=== PATIENT | male | born 1965 | race Caucasian/White ===

== ENCOUNTER → 2016-03-13 | Outpatient (CLI) | payer BC ==
[~2016-03-13] MED LIST: ACET-1311 PO; ASPI81TA85 PO; B-COCAP21 PO; CLOP1TAB54 PO; GABA300C19 PO; GLYB1.257 PO; METF500T PO; PANT40TA PO; SERT50TA PO; TAMS0.4C59 PO
[2016-03-13 13:50] LABS: BLOOD UREA NITROGEN 7 mg/dl (7-18); BUN/CREATININE RATIO 11.5 (10-20); CALCIUM 9.1 mg/dl (8.5-10.1); CARBON DIOXIDE 30 mmol/L (21-32); CHLORIDE 102 mmol/L (98-107); GLUCOSE 169 mg/dl (70-99); POTASSIUM 3.9 mmol/L (3.5-5.1); SODIUM 141 mmol/L (136-145)
[2016-03-13 13:56] LABS: CHOLESTEROL 196 mg/dl (0-200); CHOLESTEROL/HDL RATIO 3.9; HDL CHOLESTEROL 50 mg/dl; TRIGLYCERIDES 203 mg/dl (0-150); VERY LOW DENSITY LIPOPROT CALC 41 mg/dl
[2016-03-13 13:57] LABS: ESTIMATED AVERAGE GLUCOSE 148 mg/dl; HA1C FLAG Normal (Normal)
== END | disposition home or self-care (01) ==
LOC: C.LABSPEC 12:14
PROVIDERS: ATTEND Internal Medicine
DX: E11.9 Type 2 diabetes mellitus without complications (principal); E78.5 Hyperlipidemia, unspecified; Z51.81 Encounter for therapeutic drug level monitoring; Z79.899 Other long term (current) drug therapy

== ENCOUNTER → 2016-07-11 | Outpatient (CLI) | payer BC ==
[~2016-07-11] MED LIST changes: +GABA-1218 PO; -GABA300C19 PO
[2016-07-11 12:47] LABS: BASO % 0.2 %; BASO ABS # 0.01 K/uL (0-0.2); COMPLETE YES; HEMATOCRIT 46.6 % (42-52); IG% 0.3 %; LYMPH % 23.4 %; LYMPH ABS # 1.47 K/uL (1.2-3.4); MEAN CELL VOLUME 90.1 fL (80-100); MEAN CORPUSCULAR HEMOGLOBIN 30.2 pg (25-34); MEAN CORPUSCULAR HGB CONC 33.5 g/dl (32-36); MEAN PLATELET VOLUME 11.3 fL (7.4-10.4); NEUT % 65.1 %; PLATELET COUNT 201 K/uL (130-400); RED BLOOD COUNT 5.17 M/uL (4.7-6.1); WHITE BLOOD COUNT 6.29 K/uL (4.8-10.8)
[2016-07-11 13:43] LABS: ESTIMATED AVERAGE GLUCOSE 151 mg/dl; HA1C FLAG Normal (Normal)
[2016-07-11 15:38] LABS: ALT/SGPT 41 U/L (12-78); AST/SGOT 18 U/L (15-37); BLOOD UREA NITROGEN 10 mg/dl (7-18); BUN/CREATININE RATIO 17.7 (10-20); CALCIUM 8.7 mg/dl (8.5-10.1); CARBON DIOXIDE 27 mmol/L (21-32); CHLORIDE 103 mmol/L (98-107); CREATININE 0.56 mg/dl (0.60-1.40); GLUCOSE 151 mg/dl (70-99); POTASSIUM 3.9 mmol/L (3.5-5.1); SODIUM 139 mmol/L (136-145); TRIGLYCERIDES 209 mg/dl (0-150); VERY LOW DENSITY LIPOPROT CALC 42 mg/dl
[2016-07-11 15:39] LABS: ALB/GLOB RATIO 1.1 (0.9-2); ALKALINE PHOSPHATASE 176 U/L (45-117); CHOLESTEROL 190 mg/dl (0-200); CHOLESTEROL/HDL RATIO 4.1; HDL CHOLESTEROL 46 mg/dl
== END | disposition home or self-care (01) ==
LOC: C.LABSPEC 12:19
PROVIDERS: ATTEND Internal Medicine
DX: E11.65 Type 2 diabetes mellitus with hyperglycemia (principal); E78.5 Hyperlipidemia, unspecified; G40.909 Epilepsy, unspecified, not intractable, without status epilepticus

== ENCOUNTER → 2016-08-15 | Outpatient (CLI) | payer BC ==
--- NOTE | 2016-08-15 15:28 | DIAGNOSTIC IMAGING REPORT ---
CHEST 2 VIEWS ROUTINE CLINICAL HISTORY: COUGH, PAIN IN UPPER BACK dyspnea COMPARISON STUDY: 06/29/2012 FINDINGS: The bones soft tissues and hemidiaphragms are normal. The cardiomediastinal silhouette is normal. The lungs are clear. The pulmonary vasculature is normal. IMPRESSION: Negative chest. Electronically signed by: Chris Gross M.D. 08/15/2016 3:26 PM Dictated Date/Time: 08/15/2016 3:26 PM
--- NOTE | 2016-08-15 15:31 | DIAGNOSTIC IMAGING REPORT ---
THORACIC SPINE 3 VIEWS HISTORY: Dyspnea COUGH, PAIN IN UPPER BACK COMPARISON: None. FINDINGS: There is no fracture. No subluxation. Moderate degenerative disc change throughout IMPRESSION: Moderate degenerative disc change. No acute bony abnormality. Electronically signed by: Chris Gross M.D. 08/15/2016 3:30 PM Dictated Date/Time: 08/15/2016 3:29 PM
== END | disposition home or self-care (01) ==
LOC: C.RAD 14:48
PROVIDERS: ATTEND Internal Medicine
DX: R05 Cough (principal); M54.6 Pain in thoracic spine

== ENCOUNTER → 2016-11-10 | Outpatient (CLI) | payer BC ==
[~2016-11-10] MED LIST changes: -GABA-1218 PO; +GABA300C19 PO
== END | disposition home or self-care (01) ==
LOC: C.LABSPEC 12:25
PROVIDERS: ATTEND Internal Medicine
DX: Z12.11 Encounter for screening for malignant neoplasm of colon (principal)

== ENCOUNTER → 2016-11-21 | Outpatient (CLI) | payer BC ==
[2016-11-21 13:29] LABS: BLOOD UREA NITROGEN 8 mg/dl (7-18); CREATININE 0.48 mg/dl (0.60-1.40); GLUCOSE 143 mg/dl (70-99)
[2016-11-21 13:30] LABS: BUN/CREATININE RATIO 16.3 (10-20); CALCIUM 9.1 mg/dl (8.5-10.1); CARBON DIOXIDE 28 mmol/L (21-32); CHLORIDE 102 mmol/L (98-107); CHOLESTEROL 201 mg/dl (0-200); SODIUM 138 mmol/L (136-145); TRIGLYCERIDES 172 mg/dl (0-150); VERY LOW DENSITY LIPOPROT CALC 34 mg/dl
[2016-11-21 13:32] LABS: CHOLESTEROL/HDL RATIO 5.3; HDL CHOLESTEROL 38 mg/dl
[2016-11-21 13:38] LABS: ESTIMATED AVERAGE GLUCOSE 137 mg/dl; HA1C FLAG Normal (Normal)
== END | disposition home or self-care (01) ==
LOC: C.LABSPEC 12:13
PROVIDERS: ATTEND Internal Medicine
DX: E11.9 Type 2 diabetes mellitus without complications (principal); E78.5 Hyperlipidemia, unspecified

== ENCOUNTER → 2016-12-12 | Outpatient (CLI) | payer BC ==
[2016-12-12 17:53] LABS: RATIO 7.4 mcg/mg (0-30.0)
== END | disposition home or self-care (01) ==
LOC: C.LABSPEC 15:33
PROVIDERS: ATTEND Internal Medicine
DX: E11.9 Type 2 diabetes mellitus without complications (principal)

== ENCOUNTER → 2017-03-14 | Outpatient (CLI) | payer BC ==
[~2017-03-14] MED LIST changes: +GABA-1218 PO; -GABA300C19 PO
[2017-03-14 12:58] LABS: BASO % 0.2 %; BASO ABS # 0.01 K/uL (0-0.2); EOS % 0.3 %; EOS ABS # 0.02 K/uL (0-0.5); HEMATOCRIT 43.6 % (42-52); HEMOGLOBIN 14.4 g/dL (14.0-18.0); IG# 0.02 K/uL (0.00-0.02); LYMPH % 17.9 %; LYMPH ABS # 1.06 K/uL (1.2-3.4); MEAN CELL VOLUME 88.3 fL (80-100); MEAN CORPUSCULAR HEMOGLOBIN 29.1 pg (25-34); MEAN PLATELET VOLUME 10.3 fL (7.4-10.4); MONO % 12.9 %; MONO ABS # 0.76 K/uL (0.11-0.59); NEUT % 68.4 %; NEUT ABS # 4.04 K/uL (1.4-6.5); PLATELET COUNT 206 K/uL (130-400); RED CELL DISTRIBUTION WIDTH CV 14.2 % (11.5-14.5); RED CELL DISTRIBUTION WIDTH SD 45.7 fL (36.4-46.3); WHITE BLOOD COUNT 5.91 K/uL (4.8-10.8)
[2017-03-14 13:27] LABS: HEMOGLOBIN A1C 6.4 % (4.5-5.6)
[2017-03-14 13:30] LABS: ALBUMIN 3.4 gm/dl (3.4-5.0); ALT/SGPT 42 U/L (12-78); AST/SGOT 19 U/L (15-37); BLOOD UREA NITROGEN 7 mg/dl (7-18); CALCIUM 9.1 mg/dl (8.5-10.1); CARBON DIOXIDE 30 mmol/L (21-32); CHOLESTEROL 202 mg/dl (0-200); CREATININE 0.51 mg/dl (0.60-1.40); GLUCOSE 136 mg/dl (70-99); SODIUM 136 mmol/L (136-145)
[2017-03-14 13:33] LABS: ALKALINE PHOSPHATASE 226 U/L (45-117); LDL CHOLESTEROL (DIRECT) 146 mg/dl; TOTAL PROTEIN 7.3 gm/dl (6.4-8.2)
== END | disposition home or self-care (01) ==
LOC: C.LABSPEC 12:17
PROVIDERS: ATTEND Internal Medicine
DX: E11.9 Type 2 diabetes mellitus without complications (principal); I70.91 Generalized atherosclerosis; G40.909 Epilepsy, unspecified, not intractable, without status epilepticus

== ENCOUNTER → 2017-04-25 | Outpatient (CLI) | payer BC ==
[~2017-04-25] MED LIST changes: +TRAM-10 PO
[2017-04-25 18:39] LABS: BASO % 0.2 %; BASO ABS # 0.01 K/uL (0-0.2); EOS % 0.2 %; EOS ABS # 0.01 K/uL (0-0.5); HEMATOCRIT 40.2 % (42-52); HEMOGLOBIN 13.2 g/dL (14.0-18.0); IG# 0.02 K/uL (0.00-0.02); LYMPH % 14.6 %; LYMPH ABS # 0.86 K/uL (1.2-3.4); MEAN CELL VOLUME 85.4 fL (80-100); MEAN CORPUSCULAR HGB CONC 32.8 g/dl (32-36); MEAN PLATELET VOLUME 9.8 fL (7.4-10.4); MONO % 14.2 %; MONO ABS # 0.84 K/uL (0.11-0.59); NEUT % 70.5 %; NEUT ABS # 4.17 K/uL (1.4-6.5); PLATELET COUNT 287 K/uL (130-400); RED CELL DISTRIBUTION WIDTH CV 14.1 % (11.5-14.5); RED CELL DISTRIBUTION WIDTH SD 44.7 fL (36.4-46.3); WHITE BLOOD COUNT 5.91 K/uL (4.8-10.8)
[2017-04-25 18:48] LABS: ALT/SGPT 129 U/L (12-78); AST/SGOT 93 U/L (15-37); BLOOD UREA NITROGEN 9 mg/dl (7-18); CARBON DIOXIDE 29 mmol/L (21-32); CREATININE 0.62 mg/dl (0.60-1.40); GLUCOSE 74 mg/dl (70-99); LIPASE 132 U/L (73-393); POTASSIUM 3.9 mmol/L (3.5-5.1); SODIUM 132 mmol/L (136-145)
[2017-04-25 19:00] LABS: ALKALINE PHOSPHATASE 186 U/L (45-117); TOTAL PROTEIN 7.6 gm/dl (6.4-8.2)
[2017-04-26 07:12] LABS: HEMOGLOBIN A1C 6.6 % (4.5-5.6)
== END | disposition home or self-care (01) ==
LOC: C.LABSPEC 18:13
PROVIDERS: ATTEND Internal Medicine
DX: E11.9 Type 2 diabetes mellitus without complications (principal); R10.9 Unspecified abdominal pain; R63.4 Abnormal weight loss

== ENCOUNTER → 2017-04-26 | Outpatient (CLI) | payer BC ==
[~2017-04-26] MED LIST changes: +OPTIRAY 320 IV PRN
--- NOTE | 2017-04-26 14:36 | DIAGNOSTIC IMAGING REPORT ---
ABD/PELVIS IV AND ORAL CONT CT DOSE: 915.13 mGycm HISTORY: Pain. ABDOMINAL PAIN, WEIGHT LOSS TECHNIQUE: Multiaxial CT images of the abdomen and pelvis were performed following the use of intravenous and oral contrast. A dose lowering technique was utilized adhering to the principles of ALARA. COMPARISON STUDY: 01/31/2011 FINDINGS: Lung bases are considered clear. Liver is uniform throughout. Spleen is uniform with no evidence for enlargement. There are findings of marked adenopathy within the retroperitoneal and periaortic region. The largest node measures 6.2 cm and displaces the pancreatic head and uncinate process and anterior fashion. Bulky smaller nodes are identified throughout the para-aortic and retroperitoneal region extending to the level of the aortic bifurcation. The kidneys enhance uniformly. No evidence for hydronephrosis. Bowel pattern is considered nonobstructive. The appendix is normal. Subtle infiltration of the root of the mesentery is also present. Graft evaluation of the pelvis shows the bladder to be midline. Colonic bowel pattern is considered nonobstructive. Inguinal regions are unremarkable. IMPRESSION: 1. Massive adenopathy of the upper abdominal, para, and retroperitoneal regions. 2. This is considerable change compared to the prior study of 01/31/2011. 3. Lymphoma is considered the diagnosis of exclusion. The above report was generated using voice recognition software. It may contain grammatical, syntax or spelling errors. Electronically signed by: Chris Gross M.D. 04/26/2017 2:35 PM Dictated Date/Time: 04/26/2017 2:21 PM
== END | disposition home or self-care (01) ==
LOC: C.CTS 13:47
PROVIDERS: ATTEND Internal Medicine
DX: R10.9 Unspecified abdominal pain (principal); R63.4 Abnormal weight loss

== ENCOUNTER → 2017-04-26 | Outpatient (CLI) | payer BC ==
[~2017-04-26] MED LIST changes: -OPTIRAY 320 IV PRN
[2017-04-26 18:46] LABS: PTT PATIENT 29.6 SECONDS (21.0-31.0)
--- NOTE | 2017-05-04 12:13 | CODING QUERY NO DIAGNOSIS ---
TREATMENT RENDERED WITHOUT A DIAGNOSIS To promote full compliance with coding requirements relating to patient care, physician participation is requested in all cases of rn new grad uncertainty. Please assist us with providing a diagnosis/symptom for the test(s) below: A diagnosis/symptom was not documented on your Order. A valid diagnosis/symptom is required to bill all insurances. Please remember that we are unable to code a diagnosis of rule out, probable, possible, questionable, or suspected. Tests that require a diagnosis: DOS: 04/26/17 * PROTHROMBIN TIME PRO DIAGNOSIS: * PTT DIAGNOSIS: * LDH DIAGNOSIS: Provider Signature: Date: Thank you Brisa Castle [employer] Once completed, please kindly fax back to [phone] For questions please call [phone]
== END | disposition home or self-care (01) ==
LOC: C.LABSPEC 18:11
PROVIDERS: ATTEND Internal Medicine
DX: C85.90 Non-Hodgkin lymphoma, unspecified, unspecified site (principal)

== ENCOUNTER → 2017-05-01 | Outpatient (CLI) | payer BC ==
[~2017-05-01] MED LIST changes: +OPTIRAY 320 IV PRN; -TRAM-10 PO
--- NOTE | 2017-05-01 10:40 | DIAGNOSTIC IMAGING REPORT ---
CT OF THE CHEST WITH IV CONTRAST CLINICAL HISTORY: LYMPHOMA COMPARISON STUDY: Chest x-ray dated 08/15/2016 TECHNIQUE: Following the IV administration of 95 mL of Optiray-320, CT of the thorax was performed from the thoracic inlet to the lung bases. Images are reviewed in the axial, sagittal, and coronal planes. IV contrast was administered without complication. A dose lowering technique was utilized adhering to the principles of ALARA. CT DOSE: 407.24 mGy.cm FINDINGS: Thyroid: Imaged portions of the thyroid gland are normal in appearance. Thoracic aorta: The thoracic aorta is normal in course and caliber, noting standard 3-vessel arch anatomy. No aneurysm or dissection is seen. Pulmonary vasculature: The pulmonary trunk is normal in caliber. There are no central filling defects identified to suggest pulmonary embolus. Note that this examination was not protocoled for the evaluation of pulmonary emboli. HEART: The heart is normal in size and configuration, without pericardial effusion. Lungs and pleural spaces: There is respiratory motion artifact. There is no focal pulmonary consolidation. There are no suspicious pulmonary masses. Mediastinum: There is a right paratracheal lymph node the upper limits of normal in diameter. There is a mildly enlarged 12 mm subcarinal lymph node. There are enlarged retrocrural lymph the upper abdomen. Alesia: Clear. Axilla: There is no evidence of pathologic axillary lymphadenopathy Upper abdomen: There is bulky raffy hepatis and retroperitoneal para-aortic adenopathy Skeletal structures: There are no lytic or blastic osseous lesions. IMPRESSION: 1. Bulky adenopathy within the upper abdomen 2. Mildly enlarged mediastinal lymph nodes 3. No evidence of focal pulmonary consolidation. No suspicious pulmonary masses. Electronically signed by: Mars Aponte M.D. 05/01/2017 10:39 AM Dictated Date/Time: 05/01/2017 10:35 AM
== END | disposition home or self-care (01) ==
LOC: C.CTS 10:21
PROVIDERS: ATTEND Internal Medicine
DX: C85.90 Non-Hodgkin lymphoma, unspecified, unspecified site (principal)

== ENCOUNTER → 2017-05-16 | Outpatient (CLI) | payer BC ==
[~2017-05-16] MED LIST changes: -B-COCAP21 PO; +DLN100 PO; +FLM4 PO; +GABA-112 PO; +MAGNESIUM PO; +MULT-920 PO; -OPTIRAY 320 IV PRN; +OXYC1TAB3 PO; +TIMOLOL 0.25% OPR; +TRAM-10 PO
== END | disposition home or self-care (01) ==
LOC: C.CPL 15:40
PROVIDERS: ATTEND Surgery
DX: Z01.810 Encounter for preprocedural cardiovascular examination (principal); D48.9 Neoplasm of uncertain behavior, unspecified; R19.00 Intra-abdominal and pelvic swelling, mass and lump, unspecified site

== ENCOUNTER → 2017-05-21 | Outpatient (CLI) | payer BC ==
[~2017-05-21] MED LIST changes: -ACET-1311 PO; -GABA-1218 PO; +NUTR-7 PO; -TAMS0.4C59 PO
--- NOTE | 2017-05-21 13:45 | DIAGNOSTIC IMAGING REPORT ---
PET/CT HISTORY: Lymphadenopathy. TECHNIQUE: PET/CT was performed from the base of the skull through the pelvis following the intravenous administration of 10.9 mCi of F18-FDG. Non-contrast CT imaging was performed over the same range without breath-hold for attenuation correction of PET images and anatomic correlation, but not for primary interpretation as it is not of standard diagnostic quality. CT DOSE: 414.35 mGycm COMPARISON: Chest abdomen and pelvis CT 05/01/2017. 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 There are few scattered FDG avid cervical lymph noted. Dominant lymph node within the left neck base measures 2.9 x 1.7 cm and demonstrates an SUV max of 15.6. There is a 1 cm exophytic nodule/polyp at the left nasopharynx which demonstrates FDG uptake with an SUV max of 8. Abnormal FDG uptake also identified within the bilateral lateral pharyngeal lymph nodes. Focal areas of nonspecific FDG uptake seen within the right masseter, temporalis, and left pterygoid muscles. CHEST: No FDG avid or suspicious pulmonary nodules. There are are a few scattered FDG avid mediastinal and bilateral hilar lymph nodes which are mildly enlarged. Dominant periesophageal lymph node on image 90 measures 1.8 cm and demonstrates an SUV max of 12. These have increased in size. ABDOMEN/PELVIS: There is again noted bulky lymphadenopathy seen predominantly within the retroperitoneum which has slightly progressed. Dominant lymph node measures 6.6 cm. SUV max is 14. Mild abnormal FDG uptake within the spleen which is increased in size measuring 16 cm. This demonstrates an SUV max of 5. There are few FDG avid bilateral common iliac and right external iliac lymph nodes. MUSCULOSKELETAL: Multiple scattered foci of FDG uptake seen within the spine, right scapula, manubrium/sternum, pelvis consistent with metastatic foci. No corresponding lesion on CT at this time. IMPRESSION: 1. Multiple FDG avid cervical, mediastinal, hilar, abdominal, and pelvic lymph nodes as described above. This is most pronounced within the retroperitoneal space of the abdomen. This favors a lymphoma. 2. Splenomegaly with abnormal FDG uptake consistent with additional site of disease. 3. Multiple scattered foci of abnormal FDG uptake within the visualized osseous structures as described above. There is no corresponding lesion on CT at this time. However, these are consistent with additional sites of tumor. 4. A 1 cm FDG avid exophytic nodule within the left nasopharynx. This could also represent lymphoma involvement. However, direct visualization is recommended for further evaluation. 5. A few scattered foci of abnormal FDG uptake within the cps team lead muscles as described above. This could be physiologic or represent an additional site of lymphoma. Electronically signed by: Phil Escamilla M.D. 05/21/2017 1:44 PM Dictated Date/Time: 05/21/2017 1:22 PM
== END | disposition home or self-care (01) ==
LOC: C.PET 09:39
PROVIDERS: ATTEND Internal Medicine Hematology & Oncology
DX: C80.1 Malignant (primary) neoplasm, unspecified (principal)

== ENCOUNTER 2017-05-22 07:50 | Inpatient (IN) | payer BC, OTHER ==
[2017-05-18 09:55] VITALS: BMI 27.0
[2017-05-22] VITALS (7 sets, daily range): BP systolic 114–132; BP diastolic 78–85; PULSE 50–115; TEMP 36.6–37.5; O2SAT 93–100; BMI 26.0
[~2017-05-22] VITALS: Ht 172.7 cm; Wt 78.2 kg
[~2017-05-22 07:50] MED LIST changes: +LACTATED RINGER'S 1000ML 1,000 ML IV SCH; -NUTR-7 PO
[2017-05-22] MEDS ORDERED: PROPOFOL IV EMULSION 10 MG/ML 20 ML VIAL IV ONE (08:57)
[2017-05-22] MEDS ORDERED: DEXAMETHASONE SOD INJ 4 MG/ML VIAL ONE (08:57)
[2017-05-22] MEDS ORDERED: LIDOCAINE HCL 2% 2 ML VIAL (20MG/ML) ONE (08:57)
[2017-05-22] MEDS ORDERED: ONDANSETRON INJ 2 MG/ML 2 ML VIAL ONE ×2 (08:57→12:59)
[2017-05-22] MEDS ORDERED: MIDAZOLAM HCL 1 MG/ML 2ML VIAL ONE (08:58)
[2017-05-22] MEDS ORDERED: FENTANYL CITRATE INJ 50 MCG/1 ML 2 ML VIAL ONE (08:58)
[2017-05-22] MEDS ORDERED: HYDROmorphone INJ 2 MG/ML SYR/VIAL ONE (08:58)
[2017-05-22] MEDS ORDERED: EpHEDrine SULFATE INJ 50 MG/ML AMP IV PRN (09:00)
[2017-05-22] MEDS ORDERED: ATROPINE SULFATE 0.1 MG/ML 5ML SYR IV PRN (09:00)
[2017-05-22] MEDS ORDERED: MEPERIDINE HCL 25 MG/ML CARP IV PRN (09:00)
[2017-05-22] MEDS ORDERED: LABETALOL HCL IV 5 MG/ML 20ML IV PRN (09:00)
[2017-05-22] MEDS ORDERED: ONDANSETRON INJ 2 MG/ML 2 ML VIAL IV PRN ×2 (09:00→13:45)
[2017-05-22] MEDS ORDERED: HYDROmorphone INJ 1 MG/ML SYR IV PRN (09:00)
--- NOTE | 2017-05-22 09:02 | History & Physical Bridge Note ---
H&P Re-Evaluation Bridge Note: I have examined the patient, reviewed the History & Physical and in the interval since the performance of the History & Physical I have noted the following changes of clinical significance: No changes noted temp 37.7 ( repeated x1) pt voices no new complaints, discussed with anesthesia and Dr Julio Cesar Quintanilla and family will proceed with surgery, T elevation could also be due to lymphoma
[2017-05-22] MEDS ORDERED: LIDOCAINE HCL 1% 20 ML VIAL ONE ×2 (09:57→09:58)
[2017-05-22] MEDS ORDERED: BACITRACIN 50000 UNIT VIAL ONE (09:57)
[2017-05-22] MEDS ORDERED: CEFAZOLIN SOD 1 GM VIAL ONE ×2 (10:52→12:59)
[2017-05-22] MEDS ORDERED: PHENYLEPHRINE 100MCG/ML 5ML SYR ONE (11:20)
[2017-05-22] MEDS ORDERED: SURGICEL ABSORB HEMOSTAT 2IN X 14IN TOP ONE (11:42)
--- NOTE | 2017-05-22 13:20 | [facility] Post Operative Brief Note ---
Immediate Operative Summary Operative Date May 22, 2017. Pre-Operative Diagnosis Left lower back mass, need for IV fluids, retroperitoneal mass Post-Operative Diagnosis Same Procedure(s) Performed Laparoscopic attempted Biopsy of Retroperitoneal Mass convert to Open; A-Port Placement Left Jugular; Excisional Biopsy of 2cm soft tissue mass Lef tLumbar Mass Surgeon Dr Bradshaw Elementary Librarian Surgeon(s) Adam Cortes PA-C Estimated Blood Loss 30ml Findings See Below as preop Specimens Frozen section #1 retroperitoneal mass taken to pathology by Dr Bradshaw at 1147 Frozen section #2 retroperitoneal mass taken to pathology by Dr Bradshaw at 1047 A. Left lumbar mass
[2017-05-22] MEDS ORDERED: GLUCOSE 10 TABS/TUBE PO PRN (13:45)
[2017-05-22] MEDS ORDERED: GLUCAGON FOR INJ 1 MG VIAL SQ PRN (13:45)
[2017-05-22] MEDS ORDERED: GLUCOSE 40% GEL 15 GM TUBE PO PRN (13:45)
[2017-05-22] MEDS ORDERED: DEXTROSE 50% 50 ML SYR IV PRN (13:45)
[2017-05-22] MEDS ORDERED: OXYCODONE/ACETAMINOPHEN 5-325 TAB PO PRN (13:45)
[2017-05-22] MEDS: FENTANYL CITRATE INJ 50 MCG/1 ML 2 ML VIAL IV PRN ×2 (14:01→14:08)
--- NOTE | 2017-05-22 14:27 | DIAGNOSTIC IMAGING REPORT ---
CHEST ONE VIEW PORTABLE CLINICAL HISTORY: 51 years-old Male presenting with port placement. TECHNIQUE: Portable upright AP view of the chest was obtained. COMPARISON: 08/15/2016. FINDINGS: Left subclavian Mediport terminates in the right atrium. Cardiac silhouette top normal in size. Mildly low lung volumes with hypoventilatory changes. Bandlike opacity in the right mid lung likely atelectasis. No large pleural effusion or pneumothorax. A loose body may be present in the right glenohumeral joint. Upper abdomen normal. IMPRESSION: 1. Status post left subclavian Mediport placement, which is appropriately positioned. No pneumothorax. 2. Mildly low lung volumes with hypoventilatory changes and atelectasis. Electronically signed by: [place] M.D. 05/22/2017 2:26 PM Dictated Date/Time: 05/22/2017 2:25 PM
--- NOTE | 2017-05-22 14:38 | Anesthesiology Progress Note ---
Anesthesia Post Op Note Date & Time May 22, 2017 at 14:38 Vital Signs Pain Intensity: 3 Vital Signs Past 12 Hours Date Time Temp Pulse Resp B/P (MAP) Pulse Ox O2 Delivery O2 Flow Rate FiO2 05/22/17 14:20 37.1 99 20 118/84 97 Nasal Cannula 2 05/22/17 14:10 95 12 123/84 97 Nasal Cannula 2 05/22/17 14:00 94 16 128/81 98 Nasal Cannula 2 05/22/17 13:50 89 17 121/87 100 Oxymask 10 05/22/17 13:40 93 14 118/81 100 Oxymask 10 05/22/17 13:34 37.2 91 15 126/84 100 Oxymask 10 05/22/17 08:18 37.5 99 20 119/84 (96) 95 Room Air Notes Mental Status: alert / awake / arousable, participated in evaluation Pt Amnestic to Procedure: Yes Nausea / Vomiting: adequately controlled Pain: adequately controlled Airway Patency, RR, SpO2: stable & adequate BP & HR: stable & adequate Hydration State: stable & adequate Anesthetic Complications: no major complications apparent
[2017-05-22] MEDS ORDERED: IV FLUIDS COMPLETED PRN (15:15)
[2017-05-22] MEDS ORDERED: PNEUMOCOCCAL ADMINISTRATION CHARGE ONE (15:15)
[2017-05-22] MEDS ORDERED: PNEUMOCOCCAL POLYSACCHARIDES 25 MCG/0.5 ML VIAL/SYR IM. ONE (15:15)
[2017-05-22] MEDS: OXYCODONE HCL IR 5 MG TAB (IMMEDIATE RELEASE) PO PRN ×2 (15:56→20:54)
[2017-05-22] MEDS: INSULIN ASPART 100 UNITS/ML 3 ML PEN SC SCH ×2 (17:15→21:16)
[2017-05-22] MEDS: LACTATED RINGER'S 1000ML 1,000 ML IV SCH (17:50)
[2017-05-22] MEDS: SERTRALINE HCL 50 MG TAB PO SCH (20:54)
[2017-05-22] MEDS: TAMSULOSIN HCL 0.4 MG CAP PO SCH (20:54)
[2017-05-22] MEDS: PHENYTOIN SODIUM ER 100 MG CAP PO SCH (20:55)
[2017-05-22] MEDS: GABAPENTIN 300 MG CAP PO SCH (20:55)
[2017-05-23] MEDS: OXYCODONE HCL IR 5 MG TAB (IMMEDIATE RELEASE) PO PRN ×3 (00:55→19:18)
[2017-05-23] MEDS: MoRPHine SULFATE 4 MG/ML 1 ML CARP\\VIAL IV PRN ×7 (03:13→23:31)
[2017-05-23 03:25] VITALS: BP 122/83; PULSE 117; TEMP 37.3; O2SAT 91
[2017-05-23] MEDS: LACTATED RINGER'S 1000ML 1,000 ML IV SCH (05:50)
[2017-05-23] MEDS ORDERED: OXYC1TAB3 PO (07:02)
--- NOTE | 2017-05-23 07:05 | Discharge Instructions ---
Discharge Instructions Date of Service May 23, 2017. Admission Reason for Admission: Retroperitoneal Mass, Neoplasm Of Uncertain Discharge Discharge Diagnosis / Problem: biopsy of mass, A-port, excision of skin lesion Discharge Goals Goal(s): Diagnostic testing Activity Recommendations Activity Limitations: resume your previous activity Shower/Bathe: no limitations . Instructions / Follow-Up Instructions / Follow-Up Dr. Bradshaw in 1 week, call [phone] to schedule if you do not already have an appt or have any questions Restart Plavix on Current Hospital Diet Patient's current hospital diet: Diabetes Type 2 Diet Discharge Diet Recommended Diet: Regular Diet Procedures Procedures Performed: Laparoscopic attempted Biopsy of Retroperitoneal Mass convert to Open; A-Port Placement Left Jugular; Excisional Biopsy of 2cm soft tissue mass Lef tLumbar Mass Pending Studies Studies pending at discharge: yes List of pending studies: pathology Laboratory Results Hemoglobin A1c Test 04/25/17 14:00 Range/Units Estimated Average Glucose 143 mg/dl Hemoglobin A1c 6.6 H 4.5-5.6 % Lipid Panel Test 03/14/17 08:30 Range/Units Triglycerides Level 168 H 0-150 mg/dl Cholesterol Level 202 H 0-200 mg/dl HDL Cholesterol 40 mg/dl LDL Cholesterol Direct 146 mg/dl Cholesterol/HDL Ratio 5.1 LDL Cholesterol, Calculated mg/dl Medical Emergencies . Who to Call and When: Medical Emergencies: If at any time you feel your situation is an emergency, please call 911 immediately. . Non-Emergent Contact Non-Emergency issues call your: Surgeon Call Non-Emergent contact if: you have a fever, temperature is above 101.5, your pain is not controlled, you have any medication questions . "Provider Documentation" section prepared by Adam Cortes. .
[2017-05-23 08:26] LABS: BASO % 0.2 %; BASO ABS # 0.01 K/uL (0-0.2); HEMOGLOBIN 12.1 g/dL (14.0-18.0); IG# 0.02 K/uL (0.00-0.02); LYMPH % 3.6 %; LYMPH ABS # 0.23 K/uL (1.2-3.4); MEAN CELL VOLUME 81.9 fL (80-100); MEAN CORPUSCULAR HEMOGLOBIN 26.8 pg (25-34); MEAN CORPUSCULAR HGB CONC 32.7 g/dl (32-36); MONO % 12.5 %; NEUT % 83.4 %; NEUT ABS # 5.34 K/uL (1.4-6.5); PLATELET COUNT 265 K/uL (130-400); RED CELL DISTRIBUTION WIDTH CV 14.7 % (11.5-14.5); RED CELL DISTRIBUTION WIDTH SD 44.1 fL (36.4-46.3)
[2017-05-23] MEDS: ASPIRIN 81 MG ECTAB PO SCH (08:45)
[2017-05-23] MEDS: GABAPENTIN 300 MG CAP PO SCH ×3 (08:45→21:19)
[2017-05-23] MEDS: PANTOprazole SOD 40 MG TAB PO SCH (08:45)
[2017-05-23] MEDS: TIMOLOL MALEATE 0.25% OP SOLN 5 ML BTL OPR SCH (08:46)
[2017-05-23] MEDS: INSULIN ASPART 100 UNITS/ML 3 ML PEN SC SCH ×4 (08:53→21:53)
[2017-05-23 08:54] LABS: BLOOD UREA NITROGEN 5 mg/dl (7-18); CALCIUM 8.4 mg/dl (8.5-10.1); CARBON DIOXIDE 26 mmol/L (21-32); CREATININE 0.34 mg/dl (0.60-1.40); GLUCOSE 169 mg/dl (70-99); POTASSIUM 4.1 mmol/L (3.5-5.1); SODIUM 128 mmol/L (136-145)
[2017-05-23 09:53] VITALS: BP 129/86; PULSE 114; TEMP 37.3; O2SAT 91
--- NOTE | 2017-05-23 10:05 | OPERATIVE REPORT ---
DATE OF OPERATION: 05/22/2017 SURGEON: Miles Bradshaw MD. BLOOD SPLATTER ANALYST: Adam Cortes PA-C. PREOPERATIVE DIAGNOSES: Retroperitoneal mass suspicious for lymphoma, likely need for chemotherapy, lesion in the left flank approximately 2 cm, questionable metastatic lymphoma to the skin. PROCEDURE: Laparoscopy, open biopsy of retroperitoneal mass with frozen sections, A-port placement in left internal jugular, excision of left flank mass. SUMMARY: The patient was brought into the operating room theater, had voided before he went to the operating room. The abdomen was prepped with Betadine solution and properly draped. Systemic antibiotics were given. At this point, we made a small incision supraumbilically, sufficient enough to place a Veress needle, followed by CO2, followed by 5 mm trocar. Once we entered the abdomen with the scope, we could see that the patient had a significant amount of omentum draped all over the abdomen. It was hard to visualize, did not see anything suspicious on the liver or on the omentum. At this point, the area of interest was about 6 cm or so. It was elevating the pancreatic head, extending up toward the diaphragmatic surface. We placed two 5 mm trocars on both flanks. Actually, we placed a secondary trocar in the right upper quadrant, they were all 5 mm, with preemptive local analgesia of 1% Xylocaine. We tried to elevate the fatty tissue off the retroperitoneal area and elevating the liver. Anything we touched as far as the omentum was concerned, it was draped over, bled quite easily. Though we had no evidence of any systemic hypertension, this may have been related to the patient had been on Plavix, we had asked him to stop about 5 days ago, whether or not there was some residual effect or whether or not he did not stop it completely. Having said this, it was hard to really evaluate and suspect where the mass was from our viewing. There seemed to be a lot of inflammatory response around the subhepatic area, above the lesser curvature of the stomach toward the diaphragmatic surface. At this point, I elected just to convert him to a small open incision in the right upper quadrant, approximately 2 inches long, deepened through the subcutaneous tissue. We divided through the rectus, entered the peritoneal cavity. At this point, even with this maneuver, we could feel the mass protruding and elevating the duodenum and I could feel going up above the duodenal sweep toward the diaphragmatic area, a very hard mass. We then freed up all the fatty tissue on top of it so we were on top of the mass and there was a really fibrotic shell to it. We incised this and took multiple biopsies. Once we were on the mass itself, the tissue itself was very friable, it did not have the typical fleshy appearance of a lymphoma, but we had some commercial sales representative section that we took down and I personally took down the pathologist to see if we had enough tissue. On quick prep, the pathologist felt that he had enough lymphocytes but was not sure if this was reactive. He went on and got a frozen section on the area and pretty much confirmed the same thing, indicating that he had enough tissue that most likely per flow cytometry to rule out lymphoma. The area was checked for hemostasis and appeared satisfactory, did place a piece of Surgicel into the mass itself. Once we had accomplished this, we closed the wounds by using 905 chromic for the posterior rectus peritoneum, interrupted #1 PDS for the anterior rectus, subcutaneous tissue with 2-0 Dexon, jasper applied to all the trocar sites. Having said this, we redraped the patient and placed a roll underneath the shoulders. Left chest cavity was prepped. We attempted the subclavian vein twice. We did not get a good flow. We were in the vein but were not able to pass the guidewire easily. Therefore, at this point, I went on between the 2 heads of sternocleidomastoid and accessed the internal jugular there without any problem and passed the guidewire and fluoroscopically positioned it in the superior vena cava right atrial area. At this point, we then made a counter incision below the clavicle, sufficient enough to create a pocket for the reservoir that we checked it and it was easily palpable. We enlarged the incision where the guidewire had first gone in and at that point then we brought in the catheter, we tunneled it with the metal tunneler and brought it out through incision and to the cavity that we had created below it. Then placed the peel away sheath, positioned the catheter fluoroscopically and obviously was in good position as far as the area but it seemed to be a little bit too low into the inferior vena cava. We pulled it back sufficiently, putting it at right atrial superior vena cava area. The skin marking on the catheter as we connected to the reservoir was about 25 cm. We connected with the reservoir first, then placed a rubber bolster, secured it in place. After accomplishing this, we aspirated and flushed quite easily. We then placed the reservoir in the previously made pocket, secured it in place with 2-0 Prolene and pocket was closed with 2-0 Dexon and 4-0 Monocryl, Steri-Strips applied. Prior to leaving the room, we imaged the whole system, aspirated and flushed percutaneously, it worked fine and the catheter seemed in good position. At this point, we turned to place him in the right lateral position. The area on the back was a skin lesion in the left flank area, was about 2 cm. We prepped the area again. At this point, we incised the area generously to the point that we took the lesion and what appeared to be grossly free parameters. We went to the subcutaneous tissue. The wound was then closed with 2-0 Dexon and jasper for skin edges. Dressing was applied. The procedure was tolerated well by the patient. Estimated blood loss approximately 20 mL. The patient was taken to recovery room in good condition. I attest to the content of the Intraoperative Record and any orders documented therein. Any exceptions are noted below. SATINDERD
[2017-05-23] MEDS: NSS + 20MEQ KCL 1000ML 1,000 ML IV SCH ×2 (10:37→19:17)
--- NOTE | 2017-05-23 11:06 | Anesthesiology Progress Note ---
Anesthesia Post Op Note Date & Time May 23, 2017 at 11:06 Vital Signs Pain Intensity: 9.0 Vital Signs Past 12 Hours Date Time Temp Pulse Resp B/P (MAP) Pulse Ox O2 Delivery O2 Flow Rate FiO2 05/23/17 09:53 37.3 114 18 129/86 (100) 91 Room Air 05/23/17 08:15 Room Air 05/23/17 03:25 37.3 117 18 122/83 (96) 91 Room Air 05/23/17 00:00 Room Air Notes Mental Status: alert / awake / arousable, participated in evaluation Pt Amnestic to Procedure: Yes Nausea / Vomiting: adequately controlled Pain: improving with treatment, see Notes Airway Patency, RR, SpO2: stable & adequate BP & HR: stable & adequate Hydration State: stable & adequate Anesthetic Complications: no major complications apparent patient's pain r/t cancer and not surgery. His oncologist is controlling the pain/ meds.
--- NOTE | 2017-05-23 11:09 | Surgery Progress Note ---
Surgery Progress Note Date of Service May 23, 2017. Subjective Post OP Day: 1 + complaints (abdominal pain), + diet (tolerating), No nausea weakness/fatigue that began yesterday walking into the hospital, family had to bring in in wheelchair Objective Vital Signs: Date Time Temp Pulse Resp B/P (MAP) Pulse Ox O2 Delivery O2 Flow Rate FiO2 05/23/17 09:53 37.3 114 18 129/86 (100) 91 Room Air 05/23/17 08:15 Room Air 05/23/17 03:25 37.3 117 18 122/83 (96) 91 Room Air 05/23/17 00:00 Room Air 05/22/17 22:54 37.3 115 16 115/79 (91) 93 Room Air 05/22/17 17:29 36.8 105 20 132/85 (101) 98 Nasal Cannula 2.0 05/22/17 16:44 102 20 122/83 (96) 100 Nasal Cannula 2.0 05/22/17 15:50 36.9 91 20 119/83 (95) 98 Nasal Cannula 2.0 05/22/17 15:50 98 Nasal Cannula 2.0 05/22/17 15:13 36.6 50 18 114/79 (91) 96 Nasal Cannula 2.0 05/22/17 14:40 Nasal Cannula 2.0 05/22/17 14:40 36.6 100 18 114/78 (90) 95 Nasal Cannula 2.0 05/22/17 14:40 Nasal Cannula 2.0 05/22/17 14:20 37.1 99 20 118/84 97 Nasal Cannula 2 05/22/17 14:10 95 12 123/84 97 Nasal Cannula 2 05/22/17 14:00 94 16 128/81 98 Nasal Cannula 2 05/22/17 13:50 89 17 121/87 100 Oxymask 10 05/22/17 13:40 93 14 118/81 100 Oxymask 10 05/22/17 13:34 37.2 91 15 126/84 100 Oxymask 10 Abdomen: non distended, soft Incision(s): clean, dry Laboratory Results: Results Past 24 Hours Test 05/22/17 13:39 05/22/17 17:27 05/22/17 20:43 05/23/17 08:03 Range/Units Bedside Glucose 162 125 199 70-99 mg/dl White Blood Count 6.40 4.8-10.8 K/uL Red Blood Count 4.52 4.7-6.1 M/uL Hemoglobin 12.1 14.0-18.0 g/dL Hematocrit 37.0 42-52 % Mean Corpuscular Volume 81.9 80-100 fL Mean Corpuscular Hemoglobin 26.8 25-34 pg Mean Corpuscular Hemoglobin Concent 32.7 32-36 g/dl Platelet Count 265 130-400 K/uL Mean Platelet Volume 9.0 7.4-10.4 fL Neutrophils (%) (Auto) 83.4 % Lymphocytes (%) (Auto) 3.6 % Monocytes (%) (Auto) 12.5 % Eosinophils (%) (Auto) 0.0 % Basophils (%) (Auto) 0.2 % Neutrophils # (Auto) 5.34 1.4-6.5 K/uL Lymphocytes # (Auto) 0.23 1.2-3.4 K/uL Monocytes # (Auto) 0.80 0.11-0.59 K/uL Eosinophils # (Auto) 0.00 0-0.5 K/uL Basophils # (Auto) 0.01 0-0.2 K/uL RDW Standard Deviation 44.1 36.4-46.3 fL RDW Coefficient of Variation 14.7 11.5-14.5 % Immature Granulocyte % (Auto) 0.3 % Immature Granulocyte # (Auto) 0.02 0.00-0.02 K/uL Sodium Level 128 136-145 mmol/L Potassium Level 4.1 3.5-5.1 mmol/L Chloride Level 94 98-107 mmol/L Carbon Dioxide Level 26 21-32 mmol/L Anion Gap 8.0 3-11 mmol/L Blood Urea Nitrogen 5 7-18 mg/dl Creatinine 0.34 0.60-1.40 mg/dl Est Creatinine Clear Calc Drug Dose 248.6 ml/min Estimated GFR () > 150.0 Estimated GFR (Non- 147.0 BUN/Creatinine Ratio 15.7 10-20 Random Glucose 169 70-99 mg/dl Calcium Level 8.4 8.5-10.1 mg/dl Test 05/23/17 08:17 Range/Units Bedside Glucose 169 70-99 mg/dl Assessment & Plan s/p abdominal lymph node biopsy, A-port, skin lesion excision will have therapy see tachycardia overnight, will continue to monitor plan to keep here today
--- NOTE | 2017-05-23 11:22 | SURGERY PROGRESS NOTE ---
DATE: 05/23/2017 He was seen this morning at approximately 7:00 on 05/23/2017. Jarett was resting in bed, very hard to read this gentleman. He has had significant CVA. He is complaining of some abdominal pain, mostly where he has a small incision on the right upper quadrant and abdomen is softly distended. His last vital had showed him with a temperature of 37.3. He has been tachycardic overnight, last one being about 117, respirations 18, blood pressure 122/83. I&O, he has some difficulty urinating but then it seems like he is voiding at 50 mL at a time. He had a bladder scan this morning that showed about 257 mL. The abdomen remains a little softly distended, it is hard to tell if he is tender any place else other than the right upper quadrant. At this point, we did obtain some laboratory studies. His hemoglobin was 12.1, WBC 6.4. He is hyponatremic and hypokalemic. We at this point will change his IV fluids. His blood sugars have been in the 160s to 180s, we will try to titrate it more. Increase his fluids to a point and see if this is related to heart rate or just fluid depletion. Reevaluate him later today, and if at any time things deteriorate, we may have the medical service see the patient. RASHAD
[2017-05-23 13:06] VITALS: BP 127/86; PULSE 117; TEMP 37.3; O2SAT 91
[2017-05-23 15:09] VITALS: BP 137/83; PULSE 118; TEMP 37.5; O2SAT 94
[2017-05-23] MEDS ORDERED: LIDOCAINE HCL 2% JELLY 30 ML TUBE EXT PRN (15:30)
[2017-05-23] MEDS ORDERED: NURSING DECISION MEDICATION ORDER SCH (15:30)
--- NOTE | 2017-05-23 16:35 | Medical Consult ---
Consultation Date of Consultation: May 23, 2017. Attending Physician: Miles Bradshaw M.D. Reason for Consultation: Weakness and Tachycardia History of Present Illness Mr. Evans is a 51 y/o male with PMHx of T2DM with Peripheral Neuropathy and CVA with L Residual Deficits who is S/P Open Retroperitoneal Mass Bx, Excisional Bx of Soft Tissue of L Lumbar Mass, and A Port in L Jugular. Hospitalist consulted for tachycardia and weakness. Patient has an extremely flat affect. Answers most questions but sometimes just shuts his eyes without answering. States he continues to have abdominal pain and that the pain medication only relieves it slightly. States he is expecting to have pain until that mass is completely removed. He does not think he is having any increased weakness but states he hasn't gotten out of bed yet today. LUE is completely flaccid and contractured at the fingers. Normally ambulates with a cane but does have chronic L sided deficits. Doesn't feel that these have changed. He is also hyponatremic on labs. Limited records but it appears that he is normally low normal. Is on Zoloft and given the possibility of a cancerous process this could be an SIADH picture which could produce further weakness. Doesn't directly explain the tachycardia unless this is from a hyponatremic picture. Patient does have dry oral mucosa. EKG reveals sinus tachycardia without ischemic changes or other worrisome findings. He was bladder scanned for 500 cc and will have Correa placed. Is on Flomax daily. Will obtain KUB to assess for heavy stool burden that could affect urinary retention or possible stone ( unlikely). Also could assess for possible ileus that could be producing further pain. Abdomen does not appear acute. Tachycardia may be pain response vs some fluid deficits. Past Medical/Surgical History 1. T2DM with Peripheral Neuropathy 2. CVA with L Residual Deficits Family History Family history was reviewed; no changes noted. Social History Smoking Status: Former Smoker Smokeless Tobacco Use: No Alcohol Use: none Marital Status: single Housing Status: lives with family Allergies Coded Allergies: No Known Allergies (Unverified , 05/22/17) Current Inpatient Medications Current Inpatient Medications Medications (Trade) Dose Ordered Sig/Chris Route Start Time Stop Time Status Last Admin Dose Admin Ondansetron HCl (Zofran Inj) 4 mg Q4H PRN IV 05/22/17 13:45 06/21/17 13:44 Morphine Sulfate (MoRPHine SULFATE INJ) 4 mg Q1H PRN IV 05/22/17 13:45 06/05/17 13:44 05/23/17 15:57 4 MG Insulin Aspart (novoLOG ASPART) SLIDING SCALE If C... ACHS SC 05/22/17 16:00 06/21/17 15:59 05/23/17 12:56 3 UNITS Glucose (Glucose 40% Gel) 15-30 GRAMS 15 GRAMS... UD PRN PO 05/22/17 13:45 06/21/17 13:44 Glucose (Glucose Chew Tab) 4-8 Tablets 4 Tabl... UD PRN PO 05/22/17 13:45 06/21/17 13:44 Dextrose (Dextrose 50% 50ML Syringe) 25-50ML OF 50% DW IV FOR... UD PRN IV 05/22/17 13:45 06/21/17 13:44 Glucagon (Glucagon Inj) 1 mg UD PRN SQ 05/22/17 13:45 06/21/17 13:44 Aspirin (Ecotrin Tab) 81 mg QAM PO 05/23/17 09:00 06/22/17 08:59 05/23/17 08:45 81 MG Gabapentin (Neurontin Cap) 300 mg TID PO 05/22/17 21:00 06/21/17 20:59 05/23/17 13:35 300 MG Oxycodone HCl (Roxicodone Immediate Rel Tab) 10 mg Q4H PRN PO 05/22/17 13:45 06/05/17 13:44 05/23/17 05:48 10 MG Pantoprazole Sodium (Protonix Tab) 40 mg QAM PO 05/23/17 09:00 06/22/17 08:59 05/23/17 08:45 40 MG Phenytoin Sodium (Dilantin Er Cap) 300 mg QPM PO 05/22/17 21:00 06/21/17 20:59 05/22/17 20:55 300 MG Sertraline HCl (Zoloft Tab) 50 mg HS PO 05/22/17 21:00 06/21/17 20:59 05/22/17 20:54 50 MG Tamsulosin HCl (Flomax Cap) 0.4 mg HS PO 05/22/17 21:00 06/21/17 20:59 05/22/17 20:54 0.4 MG Timolol Maleate (Timoptic 0.25% Oph Soln) 1 drops QAM OPR 05/23/17 09:00 06/22/17 08:59 05/23/17 08:46 1 DROPS Miscellaneous (Iv Fluids Completed) 1 ea PRN PRN N/A 05/22/17 15:15 05/22/18 15:14 Potassium Chloride/Sodium Chloride 1,000 ml @ 125 mls/hr Q8H IV 05/23/17 10:15 06/22/17 10:14 05/23/17 10:37 125 MLS/HR Oxycodone/ Acetaminophen (Percocet 5-325mg Tab) 1 tab Q4H PRN PO 05/23/17 11:00 06/06/17 10:59 Lidocaine HCl (Xylocaine Jelly 2%) 1 APPLICATION PER URETHRA FOR URIN... PRN PRN EXT 05/23/17 15:30 06/22/17 15:29 05/23/17 15:57 1 ML Review of Systems Constitutional: No fever, No chills, No weakness, No fatigue Eyes: No worsening of vision ENT: No nasal symptoms, No sore throat, No trouble swallowing Respiratory: No cough, No shortness of breath Cardiovascular: No chest pain, No palpitations Abdomen: + pain, No nausea, No vomiting, No diarrhea, No constipation, No GI bleeding Musculoskeletal: No joint pain, No swelling, No calf pain Genitourinary - Male: No dysuria Neurologic: + weakness (L sided residual deficits from CVA) Hematologic / Lymphatic: No abnormal bleeding/bruising Integumentary: No rash Physical Exam Date Time Temp Pulse Resp B/P (MAP) Pulse Ox O2 Delivery O2 Flow Rate FiO2 05/23/17 15:09 37.5 118 18 137/83 (101) 94 Room Air 05/23/17 13:06 37.3 117 18 127/86 (100) 91 Room Air 05/23/17 09:53 37.3 114 18 129/86 (100) 91 Room Air 05/23/17 08:15 Room Air 05/23/17 03:25 37.3 117 18 122/83 (96) 91 Room Air 05/23/17 00:00 Room Air 05/22/17 22:54 37.3 115 16 115/79 (91) 93 Room Air 05/22/17 17:29 36.8 105 20 132/85 (101) 98 Nasal Cannula 2.0 05/22/17 16:44 102 20 122/83 (96) 100 Nasal Cannula 2.0 General Appearance: no apparent distress, + pertinent finding (flat affect/ minimal eye contact) Head: normocephalic, atraumatic ENT: hearing grossly normal Neck: supple, no JVD, trachea midline Respiratory/Chest: lungs clear, normal breath sounds, no respiratory distress, no accessory muscle use, + pertinent finding (L upper chest port placement with dressing applied C/D/I) Cardiovascular: no gallop, no murmur, + tachycardia (regular rhythm) Abdomen/GI: normal bowel sounds, + distended Extremities/Musculoskelatal: no calf tenderness, no pedal edema, + pertinent finding (flaccid LUE with contractured fingers) Neurologic/Psych: alert, oriented x 3 Skin: normal color, warm/dry Laboratory Results Last 24 Hours Test 05/22/17 17:27 05/22/17 20:43 05/23/17 08:03 05/23/17 08:17 Bedside Glucose 125 mg/dl 199 mg/dl 169 mg/dl White Blood Count 6.40 K/uL Red Blood Count 4.52 M/uL Hemoglobin 12.1 g/dL Hematocrit 37.0 % Mean Corpuscular Volume 81.9 fL Mean Corpuscular Hemoglobin 26.8 pg Mean Corpuscular Hemoglobin Concent 32.7 g/dl Platelet Count 265 K/uL Mean Platelet Volume 9.0 fL Neutrophils (%) (Auto) 83.4 % Lymphocytes (%) (Auto) 3.6 % Monocytes (%) (Auto) 12.5 % Eosinophils (%) (Auto) 0.0 % Basophils (%) (Auto) 0.2 % Neutrophils # (Auto) 5.34 K/uL Lymphocytes # (Auto) 0.23 K/uL Monocytes # (Auto) 0.80 K/uL Eosinophils # (Auto) 0.00 K/uL Basophils # (Auto) 0.01 K/uL RDW Standard Deviation 44.1 fL RDW Coefficient of Variation 14.7 % Immature Granulocyte % (Auto) 0.3 % Immature Granulocyte # (Auto) 0.02 K/uL Sodium Level 128 mmol/L Potassium Level 4.1 mmol/L Chloride Level 94 mmol/L Carbon Dioxide Level 26 mmol/L Anion Gap 8.0 mmol/L Blood Urea Nitrogen 5 mg/dl Creatinine 0.34 mg/dl Est Creatinine Clear Calc Drug Dose 248.6 ml/min Estimated GFR () > 150.0 Estimated GFR (Non- 147.0 BUN/Creatinine Ratio 15.7 Random Glucose 169 mg/dl Calcium Level 8.4 mg/dl Test 05/23/17 16:20 05/23/17 16:30 Assessment & Plan Mr. Evans is a 51 y/o male with PMHx of T2DM with Peripheral Neuropathy and CVA with L Residual Deficits who is S/P Open Retroperitoneal Mass Bx, Excisional Bx of Soft Tissue of L Lumbar Mass, and A Port in L Jugular. Hospitalist consulted for tachycardia and weakness. Sinus Tachycardia: Pain Response vs Hypovolemia - EKG reviewed that shows sinus tachy without ischemic changes or other worrisome changes - Reporting continued abdominal pain even with pain medication - possibly worsened by urinary retention - Labs as below for hyponatremia; will add Dilantin level to assess for toxicity Hyponatremia: SIADH vs Dehydration: - Patient does have dry oral mucosa and some urinary retention which could support dehydration but patient is on Zoloft and with the possibility of cancerous process this could be an SIADH picture - Serum osm, urine osm, random urine sodium, random urine potassium, random cortisol, TSH - Will reassess laboratories Urinary Retention with BPH: - Will obtain KUB to assess for heavy stool burden to explain continued pain and possibly retention - could add Senna if evidence of constipation given pain medication - Place Correa and obtain UA; urine is dark sudhir colored but does not appear to have heavy sediment - Continue Flomax 0.4 mg HS T2DM with Peripheral Neuropathy: - Cover with SSI - will broaden goal to 140-180 with correction of 35 - Gabapentin 300 mg TID CVA with L Residual Deficits: STABLE - ASA 81 mg daily; Will defer Plavix 75 mg daily to primary team when they would like to continued - Dilantin 300 mg daily and Zoloft 50 mg HS Disposition: - Will await further testing to give further recommendations; would encourage ambulation when possible Hospitalists will continue to follow I personally interviewed and examined the patient. I agree with history of present illness and physical exam mentioned above, I also performed my own history taking and examination. Past medical history and review of system has been obtained by myself I reviewed all pertinent labs and studies Reviewed current medications I discussed and formulated of the assessment and plan mentioned above. Please refer to the Summary mentioned below. 51-year-old man with past medical history of diabetes mellitus type 2, peripheral neuropathy and CVA with left-sided weakness. Patient unfortunately developed very suspicious significant lymphadenopathy and left lumbar mass suspicious for malignancy. Presented today for an elective biopsies. Status post procedure he developed abdominal pain/tenderness/tachycardia. Patient will be placed under observation to rule out any complication from the procedure or any other concomitant sickness. Abdominal imaging was reviewed. Will review serial lactic acid levels. Will order labs for a.m. Thank you for the opportunity of sharing in the care of Mr. Evans General Appearance: in mild distress Eyes: normal Sclerae, extraocular muscle intact ENT: hearing grossly normal Neck: supple Respiratory/Chest: normal air entry bilateral ,no respiratory distress, no accessory muscle use Cardiovascular: regular rate, rhythm, no murmur Abdomen: distended and tender, masses Extremities: no edema Neurologic/Psychiatric: Awake alert oriented times place and person moves all extremities sensation intact cranial nerves II-12 appear to be intact Skin: normal color, warm/dry, no rash Barb Bauer MD, [facility] hospitalist group
--- NOTE | 2017-05-23 16:56 | SURGERY PROGRESS NOTE ---
DATE: 05/23/2017 Jarett since I last saw him this morning appears a bit more comfortable. He is lying in bed. He is not hungry, but his only abdominal discomfort is in the subcostal area where we made a small incision. His last vitals showed a temperature of 37.5, heart rate is 118, respiratory rate 18, blood pressure 137/83, O2 sats 94 on room air. At the present time, the physician refinery operator assistant for the internal medicine service is seeing him. Labs to be repeated are pending at this time. Workup for his tachycardia is in process.
[2017-05-23 17:00] LABS: EOS % 0.2 %; EOS ABS # 0.01 K/uL (0-0.5); HEMATOCRIT 39.1 % (42-52); IG# 0.02 K/uL (0.00-0.02); LYMPH ABS # 0.33 K/uL (1.2-3.4); MEAN CELL VOLUME 82.8 fL (80-100); MEAN CORPUSCULAR HEMOGLOBIN 27.5 pg (25-34); MEAN CORPUSCULAR HGB CONC 33.2 g/dl (32-36); MEAN PLATELET VOLUME 9.3 fL (7.4-10.4); MONO % 8.4 %; MONO ABS # 0.46 K/uL (0.11-0.59); NEUT ABS # 4.65 K/uL (1.4-6.5); PLATELET COUNT 288 K/uL (130-400); RED CELL DISTRIBUTION WIDTH CV 14.8 % (11.5-14.5); RED CELL DISTRIBUTION WIDTH SD 45.3 fL (36.4-46.3); WHITE BLOOD COUNT 5.47 K/uL (4.8-10.8)
[2017-05-23 17:22] LABS: ALBUMIN 1.9 gm/dl (3.4-5.0); ALT/SGPT 331 U/L (12-78); AST/SGOT 411 U/L (15-37); BLOOD UREA NITROGEN 5 mg/dl (7-18); CALCIUM 8.3 mg/dl (8.5-10.1); CARBON DIOXIDE 27 mmol/L (21-32); CREATININE 0.44 mg/dl (0.60-1.40); GLUCOSE 156 mg/dl (70-99); POTASSIUM 4.5 mmol/L (3.5-5.1); SODIUM 130 mmol/L (136-145)
[2017-05-23 17:24] LABS: ALKALINE PHOSPHATASE 385 U/L (45-117); TOTAL PROTEIN 6.4 gm/dl (6.4-8.2)
[2017-05-23 17:36] LABS: SODIUM RANDOM URINE 38 mEq/L
[2017-05-23 18:29] LABS: OSMOLALITY,URINE 719 mOms/kg (500-800)
[2017-05-23] MEDS ORDERED: ALUMINUM/MAGNESIUM/SIMETH (MAALOX MAX) 30 ML UDC PO PRN (18:30)
[2017-05-23] MEDS ORDERED: CALCIUM CARBONATE 500 MG CHEWABLE PO PRN (18:30)
--- NOTE | 2017-05-23 19:14 | DIAGNOSTIC IMAGING REPORT ---
KUB HISTORY: Acute abdominal distention Abdominal Distention/Pain COMPARISON: PET CT 05/21/2017 FINDINGS: There is moderate gaseous distention of the large bowel with moderate stool volume within the right hemicolon. There is relative paucity of small bowel gas without evidence of small bowel obstruction. Skin jasper are noted overlying the abdominal right upper quadrant. Linear lucency adjacent to the lesser curvature of the stomach is noted. No pneumatosis. No urolith. Fluid with of the pelvis. No fracture. Port catheter projects over the right atrium. IMPRESSION: 1. Surgical skin jasper of the right upper abdomen with linear lucency adjacent to the lesser curvature of the stomach, possibly reflecting pneumoperitoneum in the setting of recent surgery. 2. Mild colonic distention suggests colonic ileus without evidence of small bowel obstruction. Electronically signed by: Jesse Smith M.D. 05/23/2017 7:13 PM Dictated Date/Time: 05/23/2017 7:09 PM
[2017-05-23] MEDS ORDERED: SENNA 8.6 MG TAB PO ONE (19:30)
[2017-05-23] MEDS ORDERED: BISACODYL 10 MG SUPP PR PRN (19:30)
[2017-05-23] MEDS: TAMSULOSIN HCL 0.4 MG CAP PO SCH (21:52)
[2017-05-23] MEDS: SERTRALINE HCL 50 MG TAB PO SCH (21:53)
[2017-05-23] MEDS: PHENYTOIN SODIUM ER 100 MG CAP PO SCH (21:53)
[2017-05-23 23:15] VITALS: BP_SYST 106; BP_SYST 122; BP_DIAS 68; BP_DIAS 80; BP_DIAS 81; PULSE 120; PULSE 125; PULSE 137; TEMP 37.7; O2SAT 93
[2017-05-24 01:34] VITALS: TEMP 37.1
[2017-05-24] MEDS: NSS + 20MEQ KCL 1000ML 1,000 ML IV SCH (02:24)
[2017-05-24] MEDS: MoRPHine SULFATE 4 MG/ML 1 ML CARP\\VIAL IV PRN ×4 (06:21→19:03)
--- NOTE | 2017-05-24 06:30 | SURGERY PROGRESS NOTE ---
DATE: 05/24/2017 Jarett is resting comfortably, although he states he is still not feeling good. His last vitals showed a temperature of 37.1. His pulse has been as high as 130-140s. Medical service has seen him and trying to decide for the cause of it. His abdomen is still distended but it is softer than yesterday. He has no localized tenderness. The A-port site looks fine. Laboratory jerome this morning are pending. A Correa catheter had been inserted. He had 400 mL of urine yesterday. The contrast of the urine is dark and it appears to be concentrated. Also of note is his liver enzymes yesterday were elevated and it has been slightly elevated also few months ago. His albumin was 1.9. At this point, we will start him on clear liquids and advance his diet as tolerated. The path report is still pending.
[2017-05-24] MEDS: OXYCODONE HCL IR 5 MG TAB (IMMEDIATE RELEASE) PO PRN ×2 (07:10→19:26)
--- NOTE | 2017-05-24 08:05 | DIAGNOSTIC IMAGING REPORT ---
GALLBLADDER-ABD LIMITED CLINICAL HISTORY: 51 years-old Male presenting with elevated lft. TECHNIQUE: Real-time grayscale and limited color Doppler ultrasound imaging of the abdomen limited to the right upper quadrant was performed. COMPARISON: CT from 04/26/2017. FINDINGS: Pancreas: Largely obscured due to overlying bowel gas and the presence of a bandage. Liver: Subtle hypoechogenicity with normal echotexture. The liver measures 16.5 cm in maximal sagittal dimension. No sonographic evidence of hepatic mass. Main portal vein patent with normal directional flow. Biliary: No intrahepatic biliary ductal dilatation. Common bile duct measures up to 5 mm in diameter. Gallbladder: Gallbladder sludge. No evidence of gallstones, gallbladder wall thickening, gallbladder distention, or pericholecystic fluid or inflammatory change. Right kidney: The echogenicity of the right kidney is greater than that of the adjacent liver parenchyma. No hydronephrosis. Ascites: None. Other: None. IMPRESSION: 1. Gallbladder sludge. No cholelithiasis, biliary ductal dilatation, or cholecystitis. Evaluation was limited due to inability to performed decubitus imaging and poor breath-holding. 2. Hypoechogenic liver parenchyma could be seen in the setting of hepatitis. Electronically signed by: Bay Hand M.D. 05/24/2017 8:03 AM Dictated Date/Time: 05/24/2017 7:59 AM
[2017-05-24 08:12] VITALS: BP 134/86; PULSE 116; TEMP 37.4; O2SAT 91
[2017-05-24 08:25] LABS: EOS % 0.2 %; EOS ABS # 0.01 K/uL (0-0.5); HEMATOCRIT 33.5 % (42-52); IG# 0.02 K/uL (0.00-0.02); LYMPH % 3.6 %; LYMPH ABS # 0.22 K/uL (1.2-3.4); MEAN CELL VOLUME 81.9 fL (80-100); MEAN CORPUSCULAR HEMOGLOBIN 26.9 pg (25-34); MEAN CORPUSCULAR HGB CONC 32.8 g/dl (32-36); MEAN PLATELET VOLUME 8.8 fL (7.4-10.4); MONO % 9.9 %; NEUT ABS # 5.22 K/uL (1.4-6.5); PLATELET COUNT 234 K/uL (130-400); RED CELL DISTRIBUTION WIDTH CV 14.8 % (11.5-14.5); RED CELL DISTRIBUTION WIDTH SD 44.5 fL (36.4-46.3); WHITE BLOOD COUNT 6.07 K/uL (4.8-10.8)
[2017-05-24 08:31] LABS: INR 1.9 (0.9-1.1)
[2017-05-24] MEDS: PANTOprazole SOD 40 MG TAB PO SCH (08:47)
[2017-05-24] MEDS: GABAPENTIN 300 MG CAP PO SCH ×3 (08:47→21:24)
[2017-05-24] MEDS: INSULIN ASPART 100 UNITS/ML 3 ML PEN SC SCH ×4 (08:47→21:36)
[2017-05-24] MEDS: ASPIRIN 81 MG ECTAB PO SCH (08:48)
[2017-05-24] MEDS: TIMOLOL MALEATE 0.25% OP SOLN 5 ML BTL OPR SCH (08:48)
[2017-05-24] MEDS: SENNA 8.6 MG TAB PO SCH (08:48)
[2017-05-24 08:55] LABS: ALBUMIN 1.6 gm/dl (3.4-5.0); ALT/SGPT 239 U/L (12-78); BLOOD UREA NITROGEN 5 mg/dl (7-18); CALCIUM 7.7 mg/dl (8.5-10.1); CARBON DIOXIDE 24 mmol/L (21-32); CREATININE 0.34 mg/dl (0.60-1.40); GLUCOSE 173 mg/dl (70-99); POTASSIUM 4.1 mmol/L (3.5-5.1); SODIUM 127 mmol/L (136-145)
[2017-05-24 09:05] LABS: ALKALINE PHOSPHATASE 292 U/L (45-117); AST/SGOT 280 U/L (15-37); TOTAL PROTEIN 5.3 gm/dl (6.4-8.2)
[2017-05-24] MEDS ORDERED: SODIUM CHLORIDE 1 GM TAB PO SCH (09:17)
[2017-05-24] MEDS: SODIUM CHLORIDE 0.9% 1000ML 1,000 ML IV SCH ×2 (09:45→19:00)
[2017-05-24] MEDS: HEPARIN SOD 5000 UNIT/0.5 ML CARP SQ SCH ×2 (12:59→21:35)
[2017-05-24] MEDS ORDERED: OPTIRAY 320 IV PRN (14:30)
[2017-05-24 15:15] VITALS: BP 136/93; PULSE 116; TEMP 37.4; O2SAT 94
--- NOTE | 2017-05-24 15:41 | DIAGNOSTIC IMAGING REPORT ---
(CHEST FOR PE) ANGIO WITH CT DOSE: 290.31 mGy.cm HISTORY: 51 years-old Male presents with acute shortness of breath and tachycardia TECHNIQUE: Multiple CTA images of the chest were obtained after the intravenous administration of 102 ml Optiray 320. Coronal and sagittal MIPS were obtained from the axial data set and were submitted for review. A dose lowering technique was utilized adhering to the principles of ALARA. COMPARISON: Chest radiograph 05/22/2017, PET CT 05/21/2017, CT chest 05/01/2017. FINDINGS: CTA: Mild multichamber cardiac enlargement. Coronary arterial disease. Thoracic aorta is normal in course and caliber without aneurysm or dissection. Mild mixed plaquing of the thoracic aorta and proximal great vessels appear patent. The pulmonary arterial tree demonstrates minimal air within the main segment, likely secondary to IV catheter. Study is moderately motion degraded which limits evaluation of the distal lobar, segmental and subsegmental branches of the pulmonary arterial tree. No definite filling defects identified to suggest pulmonary thromboembolic disease. CT CHEST: No dominant thyroid nodule. Left supraclavicular lymph node measures up to 1.4 x 2.8 cm. Pathologic mediastinal, distal periesophageal and upper abdominal adenopathy redemonstrated which has not significantly changed from comparison PET CT 05/21/2017. Subcarinal lymph nodes measure up to 1.4 cm in short axis. There is esophageal lymph nodes measure up to 1.1 cm in short axis. Retrocrural lymph nodes on the right measure up to 1.3 cm in short axis. No large pleural effusion or pneumothorax. Subsegmental dependent consolidative opacities suggest atelectasis. There is mild bilateral bronchial wall thickening. Indeterminate pleural-based 4 mm nodule of the apical posterior segment left upper lobe. Central airways appear patent. Mild pneumoperitoneum noted adjacent to the liver. Minimal deep tissue air is seen. As I 4 process, both of these findings are likely postsurgical. Deep tissue air is noted about a left pectoral [id number] catheter with distal tip in the SVC. The bones appear intact without suspicious lytic or blastic bony lesions identified. IMPRESSION: 1. Motion degraded exam with limited evaluation of the pulmonary arterial tree as above. No central embolus or acute aortic pathology identified. 2. Dependent subsegmental bibasilar consolidation suggests atelectasis. 3. Pathologically enlarged left supraclavicular, mediastinal, retrocrural, periesophageal and upper abdominal adenopathy redemonstrated, further characterized on comparison PET CT 05/21/2017 suspicious for lymphoproliferative disorder. 4. Minimal pneumoperitoneum is likely postsurgical. Postsurgical deep tissue air is also noted about the left pectoral [id number] catheter. 5. Mild cardiomegaly. The above report was generated using voice recognition software. It may contain grammatical, syntax or spelling errors. Electronically signed by: Jesse Smith M.D. 05/24/2017 3:39 PM Dictated Date/Time: 05/24/2017 3:29 PM
--- NOTE | 2017-05-24 16:30 | Hospitalist Progress Note ---
Hospitalist Progress Note Date of Service May 24, 2017. (Rosangela Muñoz .FLOYD) Subjective Pt evaluation today including: conversation w/ patient, physical exam, chart review, lab review, review of studies, review of inpatient medication list Mr. Evans denies discomfort other than soreness at his incision sites. He speaks with a very flat affect but appears comfortable. His vital signs today show persistent tachycardia and he briefly had an elevated temperature of 37.7 ROS Constitutional: no chills, aches, sweats or fever Respiratory: no sob,cough, sputum, or wheezing Cardiac: no chest pain, palpitations, edema, orthopnea or lightheadedness GI: no abdominal pain, nausea, vomiting, diarrhea or constipation : no dysuria or hesitancy Extremities: no joint pain or weakness Skin: no rash All other systems reviewed and negative (Rosangela Muñoz .FLOYD) Medications Medications Administered Medications (Trade) Dose Ordered Sig/Chris Route Start Time Stop Time Status Last Admin Dose Admin Lactated Ringer's 1,000 ml @ 15 mls/hr Q24H IV 05/22/17 06:00 05/22/17 14:09 DC 05/22/17 08:38 15 MLS/HR Fentanyl Citrate (Fentanyl Inj) 50 mcg Q5M PRN IV 05/22/17 09:00 05/22/17 16:00 DC 05/22/17 14:08 50 MCG Lidocaine HCl (Xylocaine 1% Inj (Local)) 40 ml STK-MED ONCE .ROUTE 05/22/17 09:57 05/22/17 09:58 DC 05/22/17 12:59 20 ML Heparin Sodium (Porcine) (Heparin 100 Unit/ml 5ml Flush) 25 ml STK-MED ONCE .ROUTE 05/22/17 09:57 05/22/17 09:58 DC 05/22/17 12:58 5 ML Bacitracin (Bacitracin Inj) 50,000 units STK-MED ONCE .ROUTE 05/22/17 09:57 05/22/17 09:58 DC 05/22/17 11:07 50,000 UNITS Miscellaneous (Surgicel Absorb Hemostat 2in X 14in) 1 ea ONE ONCE TOP 05/22/17 11:42 05/22/17 11:47 DC 05/22/17 11:47 1 EA Lactated Ringer's 1,000 ml @ 125 mls/hr Q8H IV 05/22/17 15:15 05/23/17 09:47 DC 05/23/17 05:50 75 MLS/HR Morphine Sulfate (MoRPHine SULFATE INJ) 4 mg Q1H PRN IV 05/22/17 13:45 06/05/17 13:44 05/24/17 16:07 4 MG Insulin Aspart (novoLOG ASPART) SLIDING SCALE If C... ACHS SC 05/22/17 16:00 06/21/17 15:59 05/24/17 12:44 1 UNITS Aspirin (Ecotrin Tab) 81 mg QAM PO 05/23/17 09:00 06/22/17 08:59 05/24/17 08:48 81 MG Gabapentin (Neurontin Cap) 300 mg TID PO 05/22/17 21:00 06/21/17 20:59 05/24/17 15:58 300 MG Oxycodone HCl (Roxicodone Immediate Rel Tab) 10 mg Q4H PRN PO 05/22/17 13:45 06/05/17 13:44 05/24/17 07:10 10 MG Pantoprazole Sodium (Protonix Tab) 40 mg QAM PO 05/23/17 09:00 06/22/17 08:59 05/24/17 08:47 40 MG Phenytoin Sodium (Dilantin Er Cap) 300 mg QPM PO 05/22/17 21:00 06/21/17 20:59 05/23/17 21:53 300 MG Sertraline HCl (Zoloft Tab) 50 mg HS PO 05/22/17 21:00 06/21/17 20:59 05/23/17 21:53 50 MG Tamsulosin HCl (Flomax Cap) 0.4 mg HS PO 05/22/17 21:00 06/21/17 20:59 05/23/17 21:52 0.4 MG Timolol Maleate (Timoptic 0.25% Oph Soln) 1 drops QAM OPR 05/23/17 09:00 06/22/17 08:59 05/24/17 08:48 1 DROPS Pneumococcal Polysaccharide Vaccine (Pneumovax-23 Inj) 25 mcg ONCE ONCE IM. 05/22/17 15:15 05/22/17 15:16 DC 05/23/17 00:53 25 MCG Potassium Chloride/Sodium Chloride 1,000 ml @ 75 mls/hr [id number] IV 05/23/17 10:15 05/24/17 09:36 DC 05/24/17 02:24 125 MLS/HR Lidocaine HCl (Xylocaine Jelly 2%) 1 APPLICATION PER URETHRA FOR URIN... PRN PRN EXT 05/23/17 15:30 06/22/17 15:29 05/23/17 15:57 1 ML Calcium Carbonate (Tums Chew Tab) 500 mg Q6H PRN PO 05/23/17 18:30 06/22/17 18:29 05/23/17 21:20 500 MG Senna (Senokot Tab) 17.2 mg QAM PO 05/24/17 09:00 06/23/17 08:59 05/24/17 08:48 17.2 MG Senna (Senokot Tab) 17.2 mg 1930 ONCE PO 05/23/17 19:30 05/23/17 19:31 DC 05/23/17 21:18 17.2 MG Heparin Sodium (Porcine) (Heparin Sq 5000 Unit/0.5ml) 5,000 unit Q12 SQ 05/24/17 12:30 06/23/17 12:29 05/24/17 12:59 5,000 UNIT Sodium Chloride 1,000 ml @ 125 mls/hr Q8H IV 05/24/17 09:45 06/23/17 09:44 05/24/17 09:45 125 MLS/HR (Rosangela Muñoz CRNP) Objective Vital Signs Date Time Temp Pulse Resp B/P (MAP) Pulse Ox O2 Delivery O2 Flow Rate FiO2 05/24/17 15:15 37.4 116 18 136/93 (107) 94 05/24/17 08:12 37.4 116 16 134/86 (102) 91 Room Air 05/24/17 07:10 Room Air 05/24/17 01:34 37.1 05/23/17 23:25 Room Air 05/23/17 23:15 37.7 120 18 122/80 (94) 93 Room Air 125 106/68 (81) 137 122/81 (95) (Rosangela Muñoz CRNP) Physical Exam Notes: General: no distress Eyes: normal inspection, PERLL Respiratory: chest non tender, fine crackles bases bilaterally, no respiratory distress, no accessory muscle use Cardiac: regular rate and rhythm, no rub or gallop, no murmur, no edema, no jvd GI/: active bowel sounds, no abd pain or tenderness, soft, non distended Extremities: left sided weakness from CVA in 2011 Neuro/Psych: alert and oriented x 3, flat affect Skin: normal color, dry (Rosangela Muñoz CRNP) Laboratory Results Last 24 Hours Test 05/23/17 16:20 05/23/17 16:30 05/23/17 17:00 05/23/17 17:16 Osmolality 268 mOsm/kg White Blood Count 5.47 K/uL Red Blood Count 4.72 M/uL Hemoglobin 13.0 g/dL Hematocrit 39.1 % Mean Corpuscular Volume 82.8 fL Mean Corpuscular Hemoglobin 27.5 pg Mean Corpuscular Hemoglobin Concent 33.2 g/dl Platelet Count 288 K/uL Mean Platelet Volume 9.3 fL Neutrophils (%) (Auto) 85.0 % Lymphocytes (%) (Auto) 6.0 % Monocytes (%) (Auto) 8.4 % Eosinophils (%) (Auto) 0.2 % Basophils (%) (Auto) 0.0 % Neutrophils # (Auto) 4.65 K/uL Lymphocytes # (Auto) 0.33 K/uL Monocytes # (Auto) 0.46 K/uL Eosinophils # (Auto) 0.01 K/uL Basophils # (Auto) 0.00 K/uL RDW Standard Deviation 45.3 fL RDW Coefficient of Variation 14.8 % Immature Granulocyte % (Auto) 0.4 % Immature Granulocyte # (Auto) 0.02 K/uL Sodium Level 130 mmol/L Potassium Level 4.5 mmol/L Chloride Level 95 mmol/L Carbon Dioxide Level 27 mmol/L Anion Gap 8.0 mmol/L Blood Urea Nitrogen 5 mg/dl Creatinine 0.44 mg/dl Est Creatinine Clear Calc Drug Dose 192.1 ml/min Estimated GFR () > 150.0 Estimated GFR (Non- 132.2 BUN/Creatinine Ratio 12.2 Random Glucose 156 mg/dl Calcium Level 8.3 mg/dl Total Bilirubin 0.6 mg/dl Aspartate Amino Transf (AST/SGOT) 411 U/L Alanine Aminotransferase (ALT/SGPT) 331 U/L Alkaline Phosphatase 385 U/L Total Protein 6.4 gm/dl Albumin 1.9 gm/dl Globulin 4.5 gm/dl Albumin/Globulin Ratio 0.4 Thyroid Stimulating Hormone (TSH) 0.675 uIu/ml Urine Color DK YELLOW Urine Appearance CLOUDY Urine pH 5.5 Urine Specific [place] 1.025 Urine Protein TRACE Urine Glucose (UA) NEG Urine Ketones 1+ Urine Occult Blood 1+ Urine Nitrite POS Urine Bilirubin NEG Urine Urobilinogen POS Urine Leukocyte Esterase TRACE Urine WBC (Auto) 1-5 /hpf Urine RBC (Auto) >30 /hpf Urine Hyaline Casts (Auto) 5-10 /lpf Urine Epithelial Cells (Auto) 10-20 /lpf Urine Bacteria (Auto) NEG Urine Osmolality 719 mOms/kg Urine Random Sodium 38 mEq/L Urine Random Potassium 64.0 mEq/L Bedside Glucose 172 mg/dl Test 05/23/17 18:45 05/23/17 20:34 05/24/17 08:09 05/24/17 08:14 Random Cortisol 43.85 mcg/dl Phenytoin (Dilantin) Level 4.0 mcg/mL Bedside Glucose 157 mg/dl 204 mg/dl White Blood Count 6.07 K/uL Red Blood Count 4.09 M/uL Hemoglobin 11.0 g/dL Hematocrit 33.5 % Mean Corpuscular Volume 81.9 fL Mean Corpuscular Hemoglobin 26.9 pg Mean Corpuscular Hemoglobin Concent 32.8 g/dl Platelet Count 234 K/uL Mean Platelet Volume 8.8 fL Neutrophils (%) (Auto) 86.0 % Lymphocytes (%) (Auto) 3.6 % Monocytes (%) (Auto) 9.9 % Eosinophils (%) (Auto) 0.2 % Basophils (%) (Auto) 0.0 % Neutrophils # (Auto) 5.22 K/uL Lymphocytes # (Auto) 0.22 K/uL Monocytes # (Auto) 0.60 K/uL Eosinophils # (Auto) 0.01 K/uL Basophils # (Auto) 0.00 K/uL RDW Standard Deviation 44.5 fL RDW Coefficient of Variation 14.8 % Immature Granulocyte % (Auto) 0.3 % Immature Granulocyte # (Auto) 0.02 K/uL Prothrombin Time 19.4 SECONDS Prothromb Time International Ratio 1.9 Sodium Level 127 mmol/L Potassium Level 4.1 mmol/L Chloride Level 96 mmol/L Carbon Dioxide Level 24 mmol/L Anion Gap 8.0 mmol/L Blood Urea Nitrogen 5 mg/dl Creatinine 0.34 mg/dl Est Creatinine Clear Calc Drug Dose 248.6 ml/min Estimated GFR () > 150.0 Estimated GFR (Non- 147.0 BUN/Creatinine Ratio 14.5 Random Glucose 173 mg/dl Lactic Acid Level 0.8 mmol/L Calcium Level 7.7 mg/dl Magnesium Level 2.0 mg/dl Total Bilirubin 0.6 mg/dl Aspartate Amino Transf (AST/SGOT) 280 U/L Alanine Aminotransferase (ALT/SGPT) 239 U/L Alkaline Phosphatase 292 U/L Total Protein 5.3 gm/dl Albumin 1.6 gm/dl Globulin 3.7 gm/dl Albumin/Globulin Ratio 0.4 Lipase 76 U/L Test 05/24/17 10:44 Hepatitis B Surface Antigen NEG (Rosangela Muñoz, FLOYD) Assessment and Plan Mr. Evans is a 51 y/o male with PMHx of T2DM with Peripheral Neuropathy and CVA with L Residual Deficits who is S/P Open Retroperitoneal Mass Bx, Excisional Bx of Soft Tissue of L Lumbar Mass, and A Port in L Jugular. Hospitalist consulted for tachycardia and weakness. Sinus Tachycardia: Pain Response vs Hypovolemia vs PE - EKG reviewed that shows sinus tachy without ischemic changes or other worrisome changes - Reporting continued abdominal pain even with pain medication - some improvement today - requiring 4mg morphine about every 5 hours - hyponatremic but otherwise electrolytes wnl - CT negative for PE Hyponatremia - likely due to dehydration - will hydrate with NSS at 125 ml/hr - Serum osm low at 268, urine osm high at 719, random urine sodium at 38, random cortisol and TSH wnl - if hyponatremia does not improve with IVF, may have to consider SIADH possibility especially given neoplastic process Elevated LFTs - appears chronic - trending down - INR elevated at 1.9 - possible due to poor po intake? - hepatitis panel pending Anemia - iron panel pending Urinary Retention with BPH: - KUB - SBO vs ileus - no nausea or vomiting - will defer to general surgery for intervention - Continue Correa - UC showed no growth - Continue Flomax 0.4 mg HS T2DM with Peripheral Neuropathy: - tighten SS as sugars somewhat elevated, bsgs AC& HS - continue Gabapentin 300 mg TID CVA with L Residual Deficits/history of seizure - ASA 81 mg daily; Will defer Plavix 75 mg daily to primary team when they would like to continued - Last seizure 2011 - serum Dilantin a bit low however as seizure history is remote, will leave dose as it is and patient can follow up outpatient - continue Dilantin 300 mg daily and Zoloft 50 mg HS Disposition: - Will await further testing to give further recommendations; would encourage ambulation when possible (Rosangela Muñoz, FLOYD) Reviewed: Pt Seen/Exam by Me (Theresa Swain MD) History [employer]TENA[employer]CE [employer] supervision Note: I interviewed and examined the patient. Discussed with FLOYD Muñoz and agree with findings and plan as documented in the note. Any exceptions or clarifications are listed here: Patient complains of pain in his abdomen. He denies chest pain or shortness of breath. He is passing flatus but no stool yet. He is making urine. Remains in sinus tachycardia. Vitals reviewed Very flat affect, NAD, alert awake and oriented Regular rhythm with tachycardia, no MGR Lungs clear to auscultation bilaterally Abdomen hypoactive bowel sounds, soft but mildly distended, positive diffuse tenderness to palpation without guarding or rebound tenderness, dressings are clean dry and intact Extremities no edema Patient is a 51-year-old male with a history of seizure disorder, DM 2, diabetic peripheral neuropathy, history of CVA with left-sided residual deficits , here with diffuse bulky lymphadenopathy now status post open retroperitoneal mass biopsy and excisional biopsy of soft tissue left lumbar mass as well as a port placement. Hospitalist service consulted for persistent tachycardia and weakness. Also with hyponatremia -Sinus tachycardia-PE ruled out with CTA of the chest today, likely secondary to hypovolemia and pain. Orthostatics are positive -Increase IV fluids to normal saline 150 mL's per hour -Follow PRP in the morning, sodium levels were mildly low 1 month ago, but now are lower likely due to hypovolemia and dehydration -Elevated LFTs were mildly elevated 1 month ago, and now significantly elevated. Checking hepatitis panel, but seems most likely due to possible infiltrative process such as a lymphoma-we will know more after biopsies return from the surgery. Continue to follow LFTs and INR Documented By: Theresa Swain (Theresa Swain MD)
[2017-05-24 19:07] VITALS: BP_SYST 121; BP_SYST 132; BP_SYST 139; BP_DIAS 82; BP_DIAS 84; BP_DIAS 85; PULSE 115; PULSE 118; PULSE 125
[2017-05-24] MEDS: SERTRALINE HCL 50 MG TAB PO SCH (21:24)
[2017-05-24] MEDS: PHENYTOIN SODIUM ER 100 MG CAP PO SCH (21:24)
[2017-05-24] MEDS: TAMSULOSIN HCL 0.4 MG CAP PO SCH (21:24)
[2017-05-24] MEDS: POLYETHYLENE (MIRALAX) 17 GM PACK PO PRN (21:36)
[2017-05-24 22:56] VITALS: BP 130/85; PULSE 114; TEMP 38; O2SAT 96
[2017-05-25] VITALS (12 sets, daily range): BP systolic 108–142; BP diastolic 61–89; PULSE 91–124; TEMP 36.5–37.3; O2SAT 91–97
[2017-05-25] MEDS: SODIUM CHLORIDE 0.9% 1000ML 1,000 ML IV SCH ×4 (03:03→23:37)
[2017-05-25 06:41] LABS: HEPATITIS A IGM TC 51813E NON-REACTIVE (NON-REACTIVE); HEPATITIS B CORE IGM TC51854R NON-REACTIVE (NON-REACTIVE)
--- NOTE | 2017-05-25 07:37 | Surgery Progress Note ---
Surgery Progress Note Date of Service May 25, 2017. Subjective Post OP Day: 3 + complaints (about still being in hospital), + pain controlled Objective Vital Signs: Date Time Temp Pulse Resp B/P (MAP) Pulse Ox O2 Delivery O2 Flow Rate FiO2 05/25/17 07:02 36.9 105 18 141/87 (105) 91 Room Air 107 05/25/17 06:15 36.7 106 142/89 (106) 105 122/81 (95) 120 120/80 (93) 05/25/17 03:06 36.9 05/24/17 23:32 Room Air 05/24/17 22:56 38.0 114 18 130/85 (100) 96 Room Air 05/24/17 19:07 115 132/85 (101) 118 139/84 (102) 125 121/82 (95) 05/24/17 16:00 Room Air 05/24/17 15:15 37.4 116 18 136/93 (107) 94 05/24/17 08:12 37.4 116 16 134/86 (102) 91 Room Air Abdomen: soft Incision(s): intact (dressing) Laboratory Results: Results Past 24 Hours Test 05/24/17 08:09 05/24/17 08:14 05/24/17 10:44 05/24/17 12:01 Range/Units Bedside Glucose 204 204 70-99 mg/dl White Blood Count 6.07 4.8-10.8 K/uL Red Blood Count 4.09 4.7-6.1 M/uL Hemoglobin 11.0 14.0-18.0 g/dL Hematocrit 33.5 42-52 % Mean Corpuscular Volume 81.9 80-100 fL Mean Corpuscular Hemoglobin 26.9 25-34 pg Mean Corpuscular Hemoglobin Concent 32.8 32-36 g/dl Platelet Count 234 130-400 K/uL Mean Platelet Volume 8.8 7.4-10.4 fL Neutrophils (%) (Auto) 86.0 % Lymphocytes (%) (Auto) 3.6 % Monocytes (%) (Auto) 9.9 % Eosinophils (%) (Auto) 0.2 % Basophils (%) (Auto) 0.0 % Neutrophils # (Auto) 5.22 1.4-6.5 K/uL Lymphocytes # (Auto) 0.22 1.2-3.4 K/uL Monocytes # (Auto) 0.60 0.11-0.59 K/uL Eosinophils # (Auto) 0.01 0-0.5 K/uL Basophils # (Auto) 0.00 0-0.2 K/uL RDW Standard Deviation 44.5 36.4-46.3 fL RDW Coefficient of Variation 14.8 11.5-14.5 % Immature Granulocyte % (Auto) 0.3 % Immature Granulocyte # (Auto) 0.02 0.00-0.02 K/uL Prothrombin Time 19.4 9.0-12.0 SECONDS Prothromb Time International Ratio 1.9 0.9-1.1 Sodium Level 127 136-145 mmol/L Potassium Level 4.1 3.5-5.1 mmol/L Chloride Level 96 98-107 mmol/L Carbon Dioxide Level 24 21-32 mmol/L Anion Gap 8.0 3-11 mmol/L Blood Urea Nitrogen 5 7-18 mg/dl Creatinine 0.34 0.60-1.40 mg/dl Est Creatinine Clear Calc Drug Dose 248.6 ml/min Estimated GFR () > 150.0 Estimated GFR (Non- 147.0 BUN/Creatinine Ratio 14.5 10-20 Random Glucose 173 70-99 mg/dl Lactic Acid Level 0.8 0.4-2.0 mmol/L Calcium Level 7.7 8.5-10.1 mg/dl Magnesium Level 2.0 1.8-2.4 mg/dl Total Bilirubin 0.6 0.2-1 mg/dl Aspartate Amino Transf (AST/SGOT) 280 15-37 U/L Alanine Aminotransferase (ALT/SGPT) 239 12-78 U/L Alkaline Phosphatase 292 45-117 U/L Total Protein 5.3 6.4-8.2 gm/dl Albumin 1.6 3.4-5.0 gm/dl Globulin 3.7 2.5-4.0 gm/dl Albumin/Globulin Ratio 0.4 0.9-2 Lipase 76 73-393 U/L Hepatitis A IgM Antibody NON-REACTIVE NON-REACTIVE Hepatitis B Surface Antigen NEG NEG Hepatitis B Core IgM Antibody NON-REACTIVE NON-REACTIVE Hepatitis C Antibody NON-REACTIVE NON-REACTIVE Hepatitis C Ab Signal/Cutoff Ratio 0.01 LESS THAN 1.0 Test 05/24/17 17:16 05/24/17 20:59 05/25/17 04:44 Range/Units Bedside Glucose 213 178 70-99 mg/dl Transferrin % Saturation 20-50 % Assessment & Plan s/p abdominal lymph node biopsy, A-port, skin lesion excision HR remains 100s CT negative for PE will review with Dr. Bradshaw
[2017-05-25] MEDS: OXYCODONE/ACETAMINOPHEN 5-325 TAB PO PRN ×2 (08:30→13:23)
--- NOTE | 2017-05-25 08:39 | ONCOLOGY CONSULTATION ---
DATE OF CONSULTATION: 05/25/2017 REASON FOR CONSULTATION: Diffuse lymphadenopathy suspicious for lymphoproliferative disorder in a 51-year-old gentleman. HISTORY OF PRESENT ILLNESS: Jarett is a pleasant 51-year-old gentleman actually well known to me, recently seen in consultation on 05/15/2017 with a diagnosis of retroperitoneal lymphadenopathy. He was admitted to [facility] on 05/23/2017 to undergo laparoscopic retroperitoneal lymphadenectomy performed by Dr. Bradshaw. The operative procedure went reasonably well; however, postop patient developed a low grade fever as well as increase in liver transaminases and mild coagulopathy. Thus, the reason for continued observation. Jarett again is a very pleasant 51-year-old gentleman who was referred to [facility] at the kind request of his primary physician for evaluation and management of a newly discovered retroperitoneal lymphadenopathy. Jarett had been symptomatic for the past several weeks, estimates weight loss about 8 pounds with associated anorexia. Additionally, Jarett was experiencing pain mainly involving the epigastrium with radiation to the back. CT scan of the abdomen and pelvis dated 04/24/2017 had revealed marked adenopathy within the retroperitoneal and periaortic regions. The largest of these nodes measured 6.2 cm displacing the pancreatic head, which I suspect is attributable to his current pain issues. Jarett had also recently undergone PET which again reveals multiple FDG-avid cervical, mediastinal, hilar, and abdominal and pelvic lymph nodes. Dr. Bradshaw contacted me by phone alerting me to Jarett's current clinical situation and asked me to assist in his postoperative recovery. PAST MEDICAL HISTORY: Significant for seizure disorder, peripheral neuropathy, hypercholesterolemia, glaucoma, depression, transient cerebral ischemia and essential hypertension as well as seizure disorder. PAST SURGICAL HISTORY: Cyst removal and recent laparoscopic lymphadenectomy. MEDICATIONS: Oxycodone 10 mg p.o. q. 4-6 hours p.r.n. for pain, aspirin 81 mg p.o. daily, atorvastatin 20 mg p.o. daily, Dilantin 200 mg p.o. b.i.d., gabapentin 300 mg p.o. t.i.d., glyburide 1.25 mg p.o. daily, magnesium 250 mg p.o. b.i.d., metformin 500 mg p.o. t.i.d., Protonix 40 mg p.o. daily, Plavix 75 mg p.o. daily, tamsulosin 0.4 mg 24-hour extended release capsule daily, Zoloft 50 mg p.o. daily. ALLERGIES: No known drug allergies. SOCIAL HISTORY: The patient lives with his parents. Permanently disabled attributable to previous CVA. He is a reformed smoker and reformed drinker. FAMILY HISTORY: Mother is alive and well. There is a family history of both lung cancer and non-Hodgkin's lymphoma. In regards to the non-Hodgkin's lymphoma, his mother is actually currently under Dr. Isabel's care and in remission. REVIEW OF SYSTEMS: Pertinent only to postoperative abdominal discomfort and low-grade fever. The remainder of the systems are otherwise unremarkable. PHYSICAL EXAMINATION: GENERAL: Jarett is a 51-year-old gentleman with relatively flat affect, in no acute distress. VITAL SIGNS: Temperature 36.9, pulse 105, respiratory rate 18, blood pressure 141/87. SKIN: Pale without rash or lesion. No history of dermatoses otherwise. HEENT: Atraumatic, normocephalic. EYES: PERRLA, EOMI. Sclerae are nonicteric. Nares are patent. Throat clear. Tongue midline. Mucous membranes are moist. No buccal lesions or ulcerations. NECK: Supple. HEART: Tachycardic, but regular. LUNGS: Clear to auscultation. ABDOMEN: Mildly distended. Bowel sounds are hypoactive. No palpable hepatosplenomegaly. No rigidity or guarding. EXTREMITIES: No clubbing, cyanosis or edema. Jarett has a left-sided motor deficit again attributable to previous CVA. NEUROLOGIC: Not performed. LABORATORY DATA: PT 19.4, INR 1.9. WBC count 6070, hemoglobin 11, platelet count 234,000. Sodium 127, potassium 4.1, chloride 96, carbon dioxide 24, BUN 5, creatinine 0.34, AST 280, ALT 239, alkaline phosphatase 249. Albumin 1.6. IMPRESSION: 1. Status post operative day #2, laparoscopic retroperitoneal lymphadenectomy. 2. Low grade fever. 3. Elevated liver transaminases. 4. Hypoalbuminemia. 5. Coagulopathy, most likely attributable to nutritional deficit, (vitamin K.). 6. Probable lymphoproliferative disorder. Biopsy results pending. PLAN: Jarett is a pleasant 51-year-old gentleman well known to [facility] seen in initial consultation on 05/15/2017 when he presented with a newly discovered retroperitoneal lymphadenopathy. From a radiographic standpoint including most recent PET scan performed on 05/21/2017, this gentleman clearly suffers from a lymphoproliferative process. Dr. Bradshaw took him to the operating room on the and successfully obtained tissue for diagnosis. Pathologic analysis is pending at time of dictation. However, postoperatively developed low grade fever as well as liver transaminitis and mild coagulopathy. In light of his albumin being 1.6, I suspect this gentleman has a vitamin K deficiency, but nonetheless will ask the lab to run a PT mixing study to confirm. I have no problem with giving this gentleman empiric vitamin K and repeating his PT and INR next day. Generally speaking, 10 mg dose given subcutaneously is adequate. Obviously, he needs nutritional support and hopefully once we begin to treat his lymphoma, his appetite will fall improve. However, the question of elevated liver transaminases remain. Conceivably this may be secondary to disease progression as well. I anticipate he will receive a rituximab based regimen and therefore hepatitis panels will be necessary leading up to treatment. I would appreciate the hepatitis panel be ordered while inpatient. We will continue to follow him periodically during his hospital stay. I anticipate an expedient outpatient followup upon discharge to begin treatment. Thank you very much for allowing me to participate in his care. If you have any questions or concerns, contact me any time. I will be cash applications analyst throughout the weekend. RASHAD
[2017-05-25 08:53] LABS: EOS % 0.2 %; EOS ABS # 0.01 K/uL (0-0.5); HEMATOCRIT 35.9 % (42-52); HEMOGLOBIN 11.5 g/dL (14.0-18.0); IG# 0.01 K/uL (0.00-0.02); LYMPH % 4.9 %; LYMPH ABS # 0.25 K/uL (1.2-3.4); MEAN CELL VOLUME 81.6 fL (80-100); MEAN CORPUSCULAR HEMOGLOBIN 26.1 pg (25-34); MONO % 7.4 %; MONO ABS # 0.38 K/uL (0.11-0.59); NEUT % 87.3 %; NEUT ABS # 4.48 K/uL (1.4-6.5); PLATELET COUNT 239 K/uL (130-400); RED CELL DISTRIBUTION WIDTH CV 14.8 % (11.5-14.5); RED CELL DISTRIBUTION WIDTH SD 44.5 fL (36.4-46.3); WHITE BLOOD COUNT 5.13 K/uL (4.8-10.8)
[2017-05-25 09:03] LABS: INR 1.7 (0.9-1.1)
[2017-05-25 09:18] LABS: ALBUMIN 1.6 gm/dl (3.4-5.0); ALT/SGPT 262 U/L (12-78); AST/SGOT 318 U/L (15-37); BLOOD UREA NITROGEN 5 mg/dl (7-18); CALCIUM 7.6 mg/dl (8.5-10.1); CARBON DIOXIDE 22 mmol/L (21-32); CREATININE 0.29 mg/dl (0.60-1.40); GLUCOSE 184 mg/dl (70-99); PHOSPHORUS 1.9 mg/dl (2.5-4.9); POTASSIUM 3.8 mmol/L (3.5-5.1); SODIUM 127 mmol/L (136-145)
[2017-05-25 09:35] LABS: ALKALINE PHOSPHATASE 294 U/L (45-117); TOTAL PROTEIN 5.5 gm/dl (6.4-8.2); TRANSFERRIN 88 mg/dl (200-360)
--- NOTE | 2017-05-25 09:50 | SURGERY PROGRESS NOTE ---
DATE: 05/25/2017 Jarett appears a little bit better this morning. His last vitals showed a temperature of 36.9, pulse still elevated but decreasing 105-107, blood pressure 141/87, O2 sats 91 on room air, respiration 18. His I&O is fairly balanced. His urine output was 300 overnight. Laboratory this morning is pending. His abdomen is softly distended but is nontender. He does have a Correa catheter in. Laboratory jerome, yesterday his coagulation showed INR of 1.9. I discussed the situation with Dr. James, the oncologist, regarding this as being concerning and also with elevated liver function test. Dr. James was going to see him this morning. From my point of view, the patient, unless the medical service have cleared it with them, can probably be discharged today. He seems to be tolerating his diet. He is passing gas. He has not moved his bowels. Probably discharge him with a Correa catheter and follow up in our office in approximately 1 week to take out the Correa catheter. We await Dr. James's consultation regarding his plan. His path report is still pending.
[2017-05-25] MEDS: ASPIRIN 81 MG ECTAB PO SCH (10:00)
[2017-05-25] MEDS: TIMOLOL MALEATE 0.25% OP SOLN 5 ML BTL OPR SCH (10:00)
[2017-05-25] MEDS: GABAPENTIN 300 MG CAP PO SCH ×3 (10:01→20:18)
[2017-05-25] MEDS: SENNA 8.6 MG TAB PO SCH (10:01)
[2017-05-25] MEDS: PANTOprazole SOD 40 MG TAB PO SCH (10:01)
[2017-05-25] MEDS: INSULIN ASPART 100 UNITS/ML 3 ML PEN SC SCH ×4 (10:09→21:34)
[2017-05-25] MEDS: HEPARIN SOD 5000 UNIT/0.5 ML CARP SQ SCH ×2 (10:10→21:35)
[2017-05-25] MEDS: OXYCODONE HCL IR 5 MG TAB (IMMEDIATE RELEASE) PO PRN ×3 (10:11→20:18)
--- NOTE | 2017-05-25 14:12 | Progress Note ---
Progress Note Date of Service May 25, 2017. Progress Note discussed with Dr. Bradshaw after labs, pathology returned this morning favor keeping the patient here in light of LFT, INR, electrolyte abnormalities consider starting chemo as inpatient? also discussed with Dr. Barr
[2017-05-25] MEDS: POLYETHYLENE (MIRALAX) 17 GM PACK PO PRN (15:37)
[2017-05-25] MEDS ORDERED: PHYTONADIONE INJ 10 MG in SODIUM CHLORIDE 0.9% 50ML 50 ML IV ONE (16:00)
[2017-05-25 19:38] LABS: OSMOLALITY,URINE 19 mOms/kg (500-800); SODIUM RANDOM URINE 88 mEq/L
[2017-05-25] MEDS: SERTRALINE HCL 50 MG TAB PO SCH (20:18)
[2017-05-25] MEDS: PHENYTOIN SODIUM ER 100 MG CAP PO SCH (20:19)
--- NOTE | 2017-05-25 20:19 | Progress Note ---
Subjective Date of Service: May 25, 2017. Subjective Pt evaluation today including: conversation w/ patient, physical exam, chart review, lab review, review of studies (liver u/s), conversation w/ securities consultant ( heme/onc; gen surg), review of inpatient medication list Pain: abdomen/back PO Intake: improving slowly Voiding: minaya catheter in place pt's main complaint is that of abd pain & back pain no worse than yesterday denies dyspnea Review of Systems Constitutional: No fever Respiratory: No cough Cardiac: No chest pain Abdomen: + pain, + constipation, No nausea, No vomiting Objective Vital Signs Date Time Temp Pulse Resp B/P (MAP) Pulse Ox O2 Delivery O2 Flow Rate FiO2 05/25/17 16:38 36.8 96 16 130/84 (99) 97 Room Air 05/25/17 15:30 Room Air 05/25/17 15:24 36.6 105 18 125/83 (97) 95 Room Air 05/25/17 14:00 111 127/84 (98) 05/25/17 14:00 124 128/79 (95) 114 132/78 (96) 05/25/17 09:57 116/71 (86) 119/61 (80) 108/73 (85) 05/25/17 08:10 Room Air 05/25/17 07:02 36.9 105 18 141/87 (105) 91 Room Air 107 05/25/17 06:15 36.7 106 142/89 (106) 105 122/81 (95) 120 120/80 (93) 05/25/17 03:06 36.9 05/24/17 23:32 Room Air 05/24/17 22:56 38.0 114 18 130/85 (100) 96 Room Air Physical Exam General Appearance: no apparent distress, + pertinent finding (flat affect) ENT: pharynx normal Neck: no JVD Respiratory/Chest: lungs clear, no respiratory distress, no accessory muscle use Cardiovascular: no gallop, no murmur, + tachycardia Abdomen: normal bowel sounds, non tender, no organomegaly, + distended (mild) Extremities: no pedal edema Neurologic/Psychiatric: alert, oriented x 3, + depressed affect (?), + pertinent finding (LUE weakness/contracture ) Skin: + pertinent finding (incisions on abdominal wall clean ) Laboratory Results Last 24 Hours Test 05/24/17 20:59 3/23/18 00:00 05/25/17 08:03 05/25/17 08:36 Bedside Glucose 178 mg/dl 171 mg/dl Urine Osmolality 19 mOms/kg Urine Random Sodium 88 mEq/L White Blood Count 5.13 K/uL Red Blood Count 4.40 M/uL Hemoglobin 11.5 g/dL Hematocrit 35.9 % Mean Corpuscular Volume 81.6 fL Mean Corpuscular Hemoglobin 26.1 pg Mean Corpuscular Hemoglobin Concent 32.0 g/dl Platelet Count 239 K/uL Mean Platelet Volume 9.0 fL Neutrophils (%) (Auto) 87.3 % Lymphocytes (%) (Auto) 4.9 % Monocytes (%) (Auto) 7.4 % Eosinophils (%) (Auto) 0.2 % Basophils (%) (Auto) 0.0 % Neutrophils # (Auto) 4.48 K/uL Lymphocytes # (Auto) 0.25 K/uL Monocytes # (Auto) 0.38 K/uL Eosinophils # (Auto) 0.01 K/uL Basophils # (Auto) 0.00 K/uL RDW Standard Deviation 44.5 fL RDW Coefficient of Variation 14.8 % Immature Granulocyte % (Auto) 0.2 % Immature Granulocyte # (Auto) 0.01 K/uL Prothrombin Time 18.1 SECONDS Prothromb Time International Ratio 1.7 Sodium Level 127 mmol/L Potassium Level 3.8 mmol/L Chloride Level 96 mmol/L Carbon Dioxide Level 22 mmol/L Anion Gap 9.0 mmol/L Blood Urea Nitrogen 5 mg/dl Creatinine 0.29 mg/dl Est Creatinine Clear Calc Drug Dose 291.5 ml/min Estimated GFR () > 150.0 Estimated GFR (Non- > 150.0 BUN/Creatinine Ratio 16.7 Random Glucose 184 mg/dl Calcium Level 7.6 mg/dl Phosphorus Level 1.9 mg/dl Magnesium Level 1.9 mg/dl Iron Level 20 mcg/dl Total Iron Binding Capacity 112 mcg/dl Transferrin 88 mg/dl Transferrin % Saturation 16 % Ferritin 5842.7 ng/ml Total Bilirubin 0.7 mg/dl Direct Bilirubin 0.4 mg/dl Aspartate Amino Transf (AST/SGOT) 318 U/L Alanine Aminotransferase (ALT/SGPT) 262 U/L Alkaline Phosphatase 294 U/L Total Protein 5.5 gm/dl Albumin 1.6 gm/dl Test 05/25/17 12:11 05/25/17 16:40 05/25/17 17:09 Bedside Glucose 281 mg/dl 171 mg/dl Ammonia < 10.0 umol/L Assessment and Plan 51yo male - 1. POD #2, s/p Laparoscopy, open biopsy of retroperitoneal mass with frozen sections, A-port placement in left internal jugular, excision of left flank mass. Doing well from surgical standpoint. Clear for home from surgery's opinion. 2. tachycardia - CTA neg for PE. Has minimal acute blood loss anemia and thus bleeding unlikely as cause. TSH w/o hyperthyroidism. He reports significant pain - suspect the high HR is from such. Treat the pain; follow. 3. h/o stroke with resulting left-sided hemiplegia - noted. Cont asa for secondary stroke prevention. 4. seizure disorder - corrected dilantin level taking into account severe hypoalbuminemia is 8. No change in seizure meds for now. May d/w neurology for more guidance, however. 5. hyponatremia - repeat urine osm and urine Na. He appears euvolemic today. Reduce fluid rate; repeat BMP am. 6. abnormal LFTs - due to new dx of Hodgkin's lymphoma? However, PET scan did not show obvious liver involvement. Liver u/s normal. Acute hep profile thus far negative. Ferritin markedly elevated, but transferrin saturation is low. Could dilantin cause this? Ammonia level wnl. Send SHWETA; consider ceruloplasmin, alpha-1 antitripsin level, etc to be complete. Repeat CMP and INR in am. 7. coagulopathy - elevated INR - may represent vitamin K def. Vitamin K 10mg IV x 1 with repeat INR in am. mixing study sent by heme/onc. 8. T2DM - add lantus 10 units HS due to ongoing hyperglycemia. Novolog meals. 9. DVT proph - heparin. Cleared by PT for home. May need OT at d/c. Will cont to follow. Continued [facility] stay due to: multiple IV medications needed Discharge planning: home
[2017-05-25] MEDS: TAMSULOSIN HCL 0.4 MG CAP PO SCH (20:20)
[2017-05-25] MEDS: INSULIN GLARGINE SOLOSTAR 100 UNITS/ML 3 ML PEN SC SCH (21:41)
[2017-05-25] MEDS: MoRPHine SULFATE 4 MG/ML 1 ML CARP\\VIAL IV PRN (23:46)
[2017-05-26] VITALS (7 sets, daily range): BP systolic 110–146; BP diastolic 69–87; PULSE 94–116; TEMP 36.9–37.9; O2SAT 94–98
[2017-05-26] MEDS: OXYCODONE HCL IR 5 MG TAB (IMMEDIATE RELEASE) PO PRN (05:22)
--- NOTE | 2017-05-26 08:45 | Surgery Progress Note ---
Surgery Progress Note Date of Service May 26, 2017. Subjective Post OP Day: 3 + feeling well, + complaints (some back pain but better), + flatus, + diet ( fulls), No bowel movement, No nausea, No vomiting Objective Vital Signs: Date Time Temp Pulse Resp B/P (MAP) Pulse Ox O2 Delivery O2 Flow Rate FiO2 05/26/17 07:11 37.2 102 15 110/78 (89) 98 Room Air 05/26/17 06:00 102 131/84 (100) 105 123/83 (96) 116 116/69 (85) 05/25/17 23:40 Room Air 05/25/17 22:53 37.3 105 18 118/75 (89) 96 Room Air 05/25/17 22:14 137/88 (104) 05/25/17 21:30 138/85 (102) 05/25/17 17:17 36.7 91 20 138/88 (105) 96 Room Air 05/25/17 16:38 36.8 96 16 130/84 (99) 97 Room Air 05/25/17 16:15 36.5 94 18 133/83 (100) 96 Room Air 05/25/17 15:30 Room Air 05/25/17 15:24 36.6 105 18 125/83 (97) 95 Room Air 05/25/17 14:00 111 127/84 (98) 05/25/17 14:00 124 128/79 (95) 114 132/78 (96) 05/25/17 09:57 116/71 (86) 119/61 (80) 108/73 (85) General Appearance: WD/WN, no apparent distress Head: normocephalic, atraumatic Neck: supple Respiratory/Chest: lungs clear Cardiovascular: regular rate, rhythm Abdomen: normal bowel sounds, soft, + distended (mild), + tenderness ( incisional) Incision(s): clean, dry, intact Extremities: non-tender, no pedal edema Laboratory Results: Results Past 24 Hours Test 05/25/17 12:11 05/25/17 16:40 05/25/17 17:09 05/25/17 20:35 Range/Units Bedside Glucose 281 171 176 70-99 mg/dl Ammonia < 10.0 11-32 umol/L Test 05/26/17 08:03 05/26/17 08:16 Range/Units Bedside Glucose 127 70-99 mg/dl Assessment & Plan Hodgkin's lymphoma -plans to treat with chemo as outpatient -minaya trial per medicine today -taking po well -pain better -await GI evaluation of LFTs -possibly home in AM if does well
[2017-05-26 09:10] LABS: HEMATOCRIT 34.3 % (42-52); HEMOGLOBIN 11.2 g/dL (14.0-18.0); MEAN CELL VOLUME 82.1 fL (80-100); MEAN CORPUSCULAR HEMOGLOBIN 26.8 pg (25-34); MEAN CORPUSCULAR HGB CONC 32.7 g/dl (32-36); MEAN PLATELET VOLUME 9.3 fL (7.4-10.4); PLATELET COUNT 252 K/uL (130-400); RED CELL DISTRIBUTION WIDTH CV 14.9 % (11.5-14.5); RED CELL DISTRIBUTION WIDTH SD 44.5 fL (36.4-46.3); WHITE BLOOD COUNT 4.67 K/uL (4.8-10.8)
[2017-05-26 09:28] LABS: INR 1.1 (0.9-1.1)
[2017-05-26] MEDS: PANTOprazole SOD 40 MG TAB PO SCH (09:39)
[2017-05-26] MEDS: GABAPENTIN 300 MG CAP PO SCH ×3 (09:39→20:03)
[2017-05-26] MEDS: ASPIRIN 81 MG ECTAB PO SCH (09:40)
[2017-05-26] MEDS: SENNA 8.6 MG TAB PO SCH (09:40)
[2017-05-26] MEDS: TIMOLOL MALEATE 0.25% OP SOLN 5 ML BTL OPR SCH (09:40)
[2017-05-26 09:44] LABS: ALBUMIN 1.5 gm/dl (3.4-5.0); ALT/SGPT 205 U/L (12-78); BLOOD UREA NITROGEN 4 mg/dl (7-18); CALCIUM 8.1 mg/dl (8.5-10.1); CARBON DIOXIDE 25 mmol/L (21-32); CREATININE 0.28 mg/dl (0.60-1.40); GLUCOSE 138 mg/dl (70-99); POTASSIUM 3.8 mmol/L (3.5-5.1); SODIUM 131 mmol/L (136-145)
[2017-05-26] MEDS: INSULIN ASPART 100 UNITS/ML 3 ML PEN SC SCH ×4 (09:44→21:14)
[2017-05-26] MEDS: HEPARIN SOD 5000 UNIT/0.5 ML CARP SQ SCH ×2 (09:45→21:13)
[2017-05-26 09:47] LABS: ALKALINE PHOSPHATASE 272 U/L (45-117); AST/SGOT 171 U/L (15-37); TOTAL PROTEIN 5.2 gm/dl (6.4-8.2)
--- NOTE | 2017-05-26 10:59 | Gastrointestinal Consultation ---
Gastrointestinal Consultation Date of Consultation: May 26, 2017 Attending Physician: Dr. Cordero Consulting Physician: Dr. Harvey Reason for Consultation: elevated LFTs History of Present Illness Patient is a 51 year old male with DM and a h/o CVA recently found to have diffuse retroperitoneal adenopathy and ultimately underwent open bx on 05/22. The pathology is consistent with Hodgkin's lymphoma. He is being followed by oncology. We are asked to see him for elevated liver enzymes. In March his LFTs were normal except for alkaline phosphatase of 226. In mid April his LFTs appear to have started to increase with AST of 93, ALT 129 and AP of 186. Following his biopsy on 05/22, apparently he had a fever the next day and labs were checked. Noted to have elevated liver enzymes. 05/23 05/24 05/25 05/26 AST 411 280 318 171 ALT 331 239 262 205 AP 385 292 294 272 TB 0.6 0.6 0.7 0.7 His INR was elevated but responded to vit K and has normalized. Elevated ferritin with low T sat likely acute phase reactant. No personal of fmaily history of liver disease. US imaging suggestive of Past Medical/Surgical History as note din HPI Past Medical History: as noted in HPI Past Surgical History: open biopsy Family History Patient reports no known family medical history. Social History Smoking Status: Former Smoker Alcohol Use: none Marital Status: single Housing Status: lives with family Allergies Coded Allergies: No Known Allergies (Unverified , 05/22/17) Current Medications Home Meds and Scripts Medications Dose Route/Sig Max Daily Dose Days Date Category Dose Instructions Roxicodone Ir (Oxycodone HCl) 5 Mg Tab 10 Mg PO Q4H PRN 05/23/17 Rx Dilantin (Phenytoin Sodium) 100 Mg Cap 300 Mg PO QPM 30 05/18/17 Reported [Magnesium] 500 Mg PO QPM 05/18/17 Reported Airborne (Multiple Vitamins W/ Minerals) 1 Tab Tab 1 Tab PO QAM 05/18/17 Reported [Timolol 0.25%] 1 Drop OPR QAM 05/18/17 Reported Tamsulosin HCl 0.4 Mg Cap 0.4 Mg PO HS 05/18/17 Reported Neurontin (Gabapentin) 100 Mg Cap 300 Mg PO TID 05/18/17 Reported Zoloft (Sertraline Hcl) 50 Mg Tab 50 Mg PO HS 06/29/12 Reported Plavix (Clopidogrel Bisulfate) 75 Mg Tab 75 Mg PO QAM 06/29/12 Reported WILL FOLLOW INSTRUCTIONS FROM SURGEON Aspirin Dr (Aspirin) 81 Mg Tab 81 Mg PO QAM 06/29/12 Reported WILL FOLLOW SURGEON INSTRUCTION Protonix (Pantoprazole Sodium) 40 Mg Tab 40 Mg PO QAM 06/29/12 Reported Glyburide 1.25 Mg Tab 1.25 Mg PO QAM 06/29/12 Reported TAKE THIS MEDICATION WITH BREAKFAST. Glucophage (Metformin Hcl) 500 Mg Tab 500 Mg PO TIDM 09/23/11 Reported Review of Systems 12 systems reviewed and negative except as noted Physical Exam Date Time Temp Pulse Resp B/P (MAP) Pulse Ox O2 Delivery O2 Flow Rate FiO2 05/26/17 10:04 Room Air 05/26/17 07:11 37.2 102 15 110/78 (89) 98 Room Air 05/26/17 06:00 102 131/84 (100) 105 123/83 (96) 116 116/69 (85) 05/25/17 23:40 Room Air 05/25/17 22:53 37.3 105 18 118/75 (89) 96 Room Air 05/25/17 22:14 137/88 (104) 05/25/17 21:30 138/85 (102) 05/25/17 17:17 36.7 91 20 138/88 (105) 96 Room Air 05/25/17 16:38 36.8 96 16 130/84 (99) 97 Room Air 05/25/17 16:15 36.5 94 18 133/83 (100) 96 Room Air 05/25/17 15:30 Room Air 05/25/17 15:24 36.6 105 18 125/83 (97) 95 Room Air 05/25/17 14:00 111 127/84 (98) 05/25/17 14:00 124 128/79 (95) 114 132/78 (96) General Appearance: WD/WN Eyes: normal inspection, PERRL ENT: normal ENT inspection, hearing grossly normal, pharynx normal Neck: supple, no JVD Respiratory/Chest: chest non-tender, lungs clear, normal breath sounds Cardiovascular: + tachycardia Abdomen: normal bowel sounds, non tender, soft Extremities: normal range of motion, non-tender Neurologic/Psych: waste baler II-XII nml as tested, no motor/sensory deficits, alert, normal mood/affect, oriented x 3 Skin: normal color, no jaundice Laboratory Results Last 24 Hours Test 05/25/17 12:11 05/25/17 16:40 05/25/17 17:09 05/25/17 20:35 Bedside Glucose 281 mg/dl 171 mg/dl 176 mg/dl Ammonia < 10.0 umol/L Test 05/26/17 08:03 05/26/17 08:16 Bedside Glucose 127 mg/dl White Blood Count 4.67 K/uL Red Blood Count 4.18 M/uL Hemoglobin 11.2 g/dL Hematocrit 34.3 % Mean Corpuscular Volume 82.1 fL Mean Corpuscular Hemoglobin 26.8 pg Mean Corpuscular Hemoglobin Concent 32.7 g/dl RDW Standard Deviation 44.5 fL RDW Coefficient of Variation 14.9 % Platelet Count 252 K/uL Mean Platelet Volume 9.3 fL Prothrombin Time 11.4 SECONDS Prothromb Time International Ratio 1.1 Sodium Level 131 mmol/L Potassium Level 3.8 mmol/L Chloride Level 99 mmol/L Carbon Dioxide Level 25 mmol/L Anion Gap 7.0 mmol/L Blood Urea Nitrogen 4 mg/dl Creatinine 0.28 mg/dl Est Creatinine Clear Calc Drug Dose 301.9 ml/min Estimated GFR () > 150.0 Estimated GFR (Non- > 150.0 BUN/Creatinine Ratio 14.1 Random Glucose 138 mg/dl Calcium Level 8.1 mg/dl Total Bilirubin 0.7 mg/dl Aspartate Amino Transf (AST/SGOT) 171 U/L Alanine Aminotransferase (ALT/SGPT) 205 U/L Alkaline Phosphatase 272 U/L Total Protein 5.2 gm/dl Albumin 1.5 gm/dl Globulin 3.7 gm/dl Albumin/Globulin Ratio 0.4 Impression Patient is a 51 year old male with newly diagnosed diffuse Hodgkins lymphoma noted to have elevated liver enzymes consistent with a hepatocellular process. Suspect this is related to the lymphoma. Numbers improving. Agree with the additional testing which has already been ordered. Monitor LFTs after discharge. Plan as above.
--- NOTE | 2017-05-26 12:28 | Hospitalist Progress Note ---
Hospitalist Progress Note Date of Service May 26, 2017. (Rosangela Muñoz .FLOYD) Subjective Pt evaluation today including: conversation w/ patient, physical exam, chart review, lab review, review of studies, review of inpatient medication list Mr. Evans reports significant 7/10 pain in his abdomen and that he is "pretty miserable". His heart rate continues to be tachycardic. He is eating and drinking well and had a bowel movement this morning. ROS Constitutional: no chills, aches, sweats or fever Respiratory: no sob,cough, sputum, or wheezing Cardiac: no chest pain, palpitations, edema, orthopnea or lightheadedness GI: no abdominal pain, nausea, vomiting, diarrhea or constipation : no dysuria or hesitancy Extremities: no joint pain or weakness Skin: no rash All other systems reviewed and negative (Rosangela Muñoz CRNP) Medications Medications Administered Medications (Trade) Dose Ordered Sig/Chris Route Start Time Stop Time Status Last Admin Dose Admin Lactated Ringer's 1,000 ml @ 15 mls/hr Q24H IV 05/22/17 06:00 05/22/17 14:09 DC 05/22/17 08:38 15 MLS/HR Fentanyl Citrate (Fentanyl Inj) 50 mcg Q5M PRN IV 05/22/17 09:00 05/22/17 16:00 DC 05/22/17 14:08 50 MCG Lidocaine HCl (Xylocaine 1% Inj (Local)) 40 ml STK-MED ONCE .ROUTE 05/22/17 09:57 05/22/17 09:58 DC 05/22/17 12:59 20 ML Heparin Sodium (Porcine) (Heparin 100 Unit/ml 5ml Flush) 25 ml STK-MED ONCE .ROUTE 05/22/17 09:57 05/22/17 09:58 DC 05/22/17 12:58 5 ML Bacitracin (Bacitracin Inj) 50,000 units STK-MED ONCE .ROUTE 05/22/17 09:57 05/22/17 09:58 DC 05/22/17 11:07 50,000 UNITS Miscellaneous (Surgicel Absorb Hemostat 2in X 14in) 1 ea ONE ONCE TOP 05/22/17 11:42 05/22/17 11:47 DC 05/22/17 11:47 1 EA Lactated Ringer's 1,000 ml @ 125 mls/hr Q8H IV 05/22/17 15:15 05/23/17 09:47 DC 05/23/17 05:50 75 MLS/HR Morphine Sulfate (MoRPHine SULFATE INJ) 4 mg Q1H PRN IV 05/22/17 13:45 06/05/17 13:44 05/25/17 23:46 4 MG Insulin Aspart (novoLOG ASPART) SLIDING SCALE If C... ACHS SC 05/22/17 16:00 06/21/17 15:59 05/26/17 09:44 3 UNITS Aspirin (Ecotrin Tab) 81 mg QAM PO 05/23/17 09:00 06/22/17 08:59 05/26/17 09:40 81 MG Gabapentin (Neurontin Cap) 300 mg TID PO 05/22/17 21:00 06/21/17 20:59 05/26/17 09:39 300 MG Oxycodone HCl (Roxicodone Immediate Rel Tab) 10 mg Q4H PRN PO 05/22/17 13:45 06/05/17 13:44 05/26/17 05:22 10 MG Pantoprazole Sodium (Protonix Tab) 40 mg QAM PO 05/23/17 09:00 06/22/17 08:59 05/26/17 09:39 40 MG Phenytoin Sodium (Dilantin Er Cap) 300 mg QPM PO 05/22/17 21:00 06/21/17 20:59 05/25/17 20:19 300 MG Sertraline HCl (Zoloft Tab) 50 mg HS PO 05/22/17 21:00 06/21/17 20:59 05/25/17 20:18 50 MG Tamsulosin HCl (Flomax Cap) 0.4 mg HS PO 05/22/17 21:00 06/21/17 20:59 05/25/17 20:20 0.4 MG Timolol Maleate (Timoptic 0.25% Oph Soln) 1 drops QAM OPR 05/23/17 09:00 06/22/17 08:59 05/26/17 09:40 1 DROPS Pneumococcal Polysaccharide Vaccine (Pneumovax-23 Inj) 25 mcg ONCE ONCE IM. 3/20/18 15:15 05/22/17 15:16 DC 05/23/17 00:53 25 MCG Potassium Chloride/Sodium Chloride 1,000 ml @ 75 mls/hr [id number] IV 05/23/17 10:15 05/24/17 09:36 DC 05/24/17 02:24 125 MLS/HR Oxycodone/ Acetaminophen (Percocet 5-325mg Tab) 1 tab Q4H PRN PO 05/23/17 11:00 05/26/17 12:11 DC 05/25/17 13:23 1 TAB Lidocaine HCl (Xylocaine Jelly 2%) 1 APPLICATION PER URETHRA FOR URIN... PRN PRN EXT 05/23/17 15:30 06/22/17 15:29 05/23/17 15:57 1 ML Calcium Carbonate (Tums Chew Tab) 500 mg Q6H PRN PO 05/23/17 18:30 06/22/17 18:29 05/23/17 21:20 500 MG Senna (Senokot Tab) 17.2 mg QAM PO 05/24/17 09:00 06/23/17 08:59 05/26/17 09:40 17.2 MG Senna (Senokot Tab) 17.2 mg 1930 ONCE PO 05/23/17 19:30 05/23/17 19:31 DC 05/23/17 21:18 17.2 MG Polyethylene (Miralax Powder Packet) 17 gm DAILY PRN PO 05/23/17 19:30 06/22/17 19:29 05/25/17 15:37 17 GM Heparin Sodium (Porcine) (Heparin Sq 5000 Unit/0.5ml) 5,000 unit Q12 SQ 05/24/17 12:30 06/23/17 12:29 05/26/17 09:45 5,000 UNIT Sodium Chloride 1,000 ml @ 75 mls/hr [id number] IV 05/24/17 09:45 06/23/17 09:44 05/25/17 23:37 75 MLS/HR Phytonadione 10 mg/Sodium Chloride 51 ml @ 102 mls/hr ONE ONCE IV 05/25/17 16:00 05/25/17 16:29 DC 05/25/17 16:14 102 MLS/HR Insulin Glargine (Lantus Solostar Pen) 10 units HS SC 05/25/17 21:00 06/24/17 20:59 05/25/17 21:41 10 UNITS (Rosangela Muñoz CRNP) Objective Vital Signs Date Time Temp Pulse Resp B/P (MAP) Pulse Ox O2 Delivery O2 Flow Rate FiO2 05/26/17 10:04 Room Air 05/26/17 07:11 37.2 102 15 110/78 (89) 98 Room Air 05/26/17 06:00 102 131/84 (100) 105 123/83 (96) 116 116/69 (85) 05/25/17 23:40 Room Air 05/25/17 22:53 37.3 105 18 118/75 (89) 96 Room Air 05/25/17 22:14 137/88 (104) 05/25/17 21:30 138/85 (102) 05/25/17 17:17 36.7 91 20 138/88 (105) 96 Room Air 05/25/17 16:38 36.8 96 16 130/84 (99) 97 Room Air 05/25/17 16:15 36.5 94 18 133/83 (100) 96 Room Air 05/25/17 15:30 Room Air 05/25/17 15:24 36.6 105 18 125/83 (97) 95 Room Air 05/25/17 14:00 111 127/84 (98) 05/25/17 14:00 124 128/79 (95) 114 132/78 (96) (Rosangela Muñoz CRNP) Physical Exam Notes: General: no distress Eyes: normal inspection, PERLL Respiratory: chest non tender, clear to auscultation, normal breath sounds, no respiratory distress, no accessory muscle use Cardiac: regular rate and rhythm, no rub or gallop, no murmur, no edema, no jvd GI/: active bowel sounds, tender to palpation, soft, mild distention Extremities: normal range of motion, normal strength, non tender Neuro/Psych: alert and oriented x 3, flat affect Skin: normal color, dry, incisions well approximated, jasper intact, no drainage or erythema (Rosangela Muñoz CRNP) Laboratory Results Last 24 Hours Test 05/25/17 16:40 05/25/17 17:09 05/25/17 20:35 05/26/17 08:03 Ammonia < 10.0 umol/L Bedside Glucose 171 mg/dl 176 mg/dl 127 mg/dl Test 05/26/17 08:16 White Blood Count 4.67 K/uL Red Blood Count 4.18 M/uL Hemoglobin 11.2 g/dL Hematocrit 34.3 % Mean Corpuscular Volume 82.1 fL Mean Corpuscular Hemoglobin 26.8 pg Mean Corpuscular Hemoglobin Concent 32.7 g/dl RDW Standard Deviation 44.5 fL RDW Coefficient of Variation 14.9 % Platelet Count 252 K/uL Mean Platelet Volume 9.3 fL Prothrombin Time 11.4 SECONDS Prothromb Time International Ratio 1.1 Sodium Level 131 mmol/L Potassium Level 3.8 mmol/L Chloride Level 99 mmol/L Carbon Dioxide Level 25 mmol/L Anion Gap 7.0 mmol/L Blood Urea Nitrogen 4 mg/dl Creatinine 0.28 mg/dl Est Creatinine Clear Calc Drug Dose 301.9 ml/min Estimated GFR () > 150.0 Estimated GFR (Non- > 150.0 BUN/Creatinine Ratio 14.1 Random Glucose 138 mg/dl Calcium Level 8.1 mg/dl Total Bilirubin 0.7 mg/dl Aspartate Amino Transf (AST/SGOT) 171 U/L Alanine Aminotransferase (ALT/SGPT) 205 U/L Alkaline Phosphatase 272 U/L Total Protein 5.2 gm/dl Albumin 1.5 gm/dl Globulin 3.7 gm/dl Albumin/Globulin Ratio 0.4 (Rosangela Muñoz, FLOYD) Assessment and Plan Mr. Evans is a 51 y/o male with PMHx of T2DM with Peripheral Neuropathy and CVA with L Residual Deficits who is S/P Open Retroperitoneal Mass Bx, Excisional Bx of Soft Tissue of L Lumbar Mass, and A Port in L Jugular. Hospitalist consulted for tachycardia and weakness. Sinus Tachycardia: - EKG reviewed that shows sinus tachy without ischemic changes or other worrisome changes - tachycardia seems likely due to pain at this point - Reporting continued abdominal pain even with pain medication - will increase oxycodone to 1-2 tablets prn - hyponatremic but otherwise electrolytes wnl - CT negative for PE Hyponatremia - likely due to dehydration - will hydrate with NSS at 125 ml/hr - Na is trending up to 131 today - continue NSS @ 75 ml/hr - Serum osm low at 268, urine osm high at 719, random urine sodium at 38, random cortisol and TSH wnl Elevated LFTs - appears chronic - trending down - INR elevated at 1.9 on admission - given IV vit K 05/25- 1.1 today - possible due to poor po intake? - hepatitis panel negative, SHWETA pending - consult GI Anemia - serum iron low, ferritin high - likely acute phase reactant Urinary Retention with BPH: - KUB - SBO vs ileus - no nausea or vomiting - no intervention at this time - discontinue minaya - UC showed no growth - Continue Flomax 0.4 mg HS T2DM with Peripheral Neuropathy: - again tightened SS as sugars continue to be elevated, bsgs AC& HS - continue Gabapentin 300 mg TID CVA with L Residual Deficits/history of seizure - ASA 81 mg daily; Will defer Plavix 75 mg daily to primary team when they would like to continued - Last seizure 2011 - serum Dilantin a bit low however as seizure history is remote, will leave dose as it is and patient can follow up outpatient - continue Dilantin 300 mg daily and Zoloft 50 mg HS Disposition: - likely can go home in the morning if continuing to do well (Rosangela Muñoz ., FLOYD) Attending Attestation - Pt seen/examined, chart reviewed, care plan d/w FLOYD Muñoz. I agree w/ the hickman components of her documentation. Pt c/o abd pain - no worse than yesterday. Minaya removed just before my visit. Denies dyspnea. No cough. 2 stools per the record Tm 37.9 tachy mild increase RR gen - looks the same as yesterday mouth - MMM neck - no JVD heart - tachy, s1, s2 lungs - CTA b/l, mild retraction, mild tachypnea abd - softly distended, BS+, mild tenderness over incisions ext - no edema neuro - left sided hemiplegia labs - Na 131 INR 1.1 LFTs modestly improved today A/P: 1. low-grade fever - check u/a, urine cx, blood cx's, cxr. Hold off on antibiotics unless source of infection is seen. This could be fever due to Hodgkin's or could be post-op fever. 2. mild tachypnea - could be 2nd to fever, but checking cxr - r/o pneumonia, r/ o CHF. 3. coagulopathy - likely vit K def - resolved. 4. abnormal LFTs - GI consult appreciated - thought to be due to lymphoma, but awaiting rest of w/u. 5. hyponatremia - improving; is net positive 7.5 liters to date; stop fluids, repeat labs am. 6. newly dx Hodgkin's lymphoma - to have outpatient chemo. 7. severe hypoalbuminemia - due to severe protein calorie malnutrition. 8. FEN - would stop fluids at this time; repeat labs am. PT, OT evals to ensure safe return home Nicholas Barr MD (Nicholas Barr MD)
[2017-05-26] MEDS: SODIUM CHLORIDE 0.9% 1000ML 1,000 ML IV SCH ×2 (13:19→21:16)
[2017-05-26] MEDS: OXYCODONE/ACETAMINOPHEN 5-325 TAB PO PRN ×2 (16:19→20:20)
--- NOTE | 2017-05-26 17:31 | DIAGNOSTIC IMAGING REPORT ---
CHEST ONE VIEW PORTABLE CLINICAL HISTORY: fever, eval for pneumonia; eval for any developing CHF dyspnea COMPARISON STUDY: 05/22/2017 mild stable cardiomegaly. FINDINGS: Central catheter remains in the right atrium. No evidence pneumothorax. Potential minimal parenchymal infiltrate right base. Diaphragms smooth. Contrast costophrenic angles are sharp. IMPRESSION: Potential minimal parenchymal infiltrate right base. The above report was generated using voice recognition software. It may contain grammatical, syntax or spelling errors. Electronically signed by: Chris Gross M.D. 05/26/2017 5:30 PM Dictated Date/Time: 05/26/2017 5:29 PM
[2017-05-26] MEDS: TAMSULOSIN HCL 0.4 MG CAP PO SCH (20:03)
[2017-05-26] MEDS: PHENYTOIN SODIUM ER 100 MG CAP PO SCH ×2 (20:03→20:05)
[2017-05-26] MEDS: SERTRALINE HCL 50 MG TAB PO SCH (20:03)
[2017-05-26] MEDS: INSULIN GLARGINE SOLOSTAR 100 UNITS/ML 3 ML PEN SC SCH (21:13)
[2017-05-27] MEDS: OXYCODONE/ACETAMINOPHEN 5-325 TAB PO PRN ×4 (03:00→20:30)
[2017-05-27] MEDS: SODIUM CHLORIDE 0.9% 1000ML 1,000 ML IV SCH ×2 (05:11→10:41)
[2017-05-27 07:12] LABS: HEMATOCRIT 34.9 % (42-52); HEMOGLOBIN 11.2 g/dL (14.0-18.0); MEAN CELL VOLUME 82.1 fL (80-100); MEAN CORPUSCULAR HEMOGLOBIN 26.4 pg (25-34); MEAN CORPUSCULAR HGB CONC 32.1 g/dl (32-36); MEAN PLATELET VOLUME 9.7 fL (7.4-10.4); PLATELET COUNT 252 K/uL (130-400); RED CELL DISTRIBUTION WIDTH CV 14.8 % (11.5-14.5); RED CELL DISTRIBUTION WIDTH SD 44.6 fL (36.4-46.3); WHITE BLOOD COUNT 3.92 K/uL (4.8-10.8)
[2017-05-27 07:56] LABS: ALBUMIN 1.4 gm/dl (3.4-5.0); ALT/SGPT 157 U/L (12-78); BLOOD UREA NITROGEN 4 mg/dl (7-18); CALCIUM 7.5 mg/dl (8.5-10.1); CARBON DIOXIDE 29 mmol/L (21-32); CREATININE 0.32 mg/dl (0.60-1.40); GLUCOSE 152 mg/dl (70-99); POTASSIUM 3.6 mmol/L (3.5-5.1); SODIUM 133 mmol/L (136-145)
[2017-05-27 08:04] LABS: ALKALINE PHOSPHATASE 253 U/L (45-117); AST/SGOT 93 U/L (15-37); TOTAL PROTEIN 5.1 gm/dl (6.4-8.2)
[2017-05-27 08:10] VITALS: BP 138/89; PULSE 102; TEMP 36.7; O2SAT 97
[2017-05-27] MEDS: PANTOprazole SOD 40 MG TAB PO SCH (09:21)
[2017-05-27] MEDS: GABAPENTIN 300 MG CAP PO SCH ×3 (09:21→20:31)
[2017-05-27] MEDS: TIMOLOL MALEATE 0.25% OP SOLN 5 ML BTL OPR SCH (09:21)
[2017-05-27] MEDS: SENNA 8.6 MG TAB PO SCH (09:21)
[2017-05-27] MEDS: ASPIRIN 81 MG ECTAB PO SCH (09:21)
[2017-05-27] MEDS: INSULIN ASPART 100 UNITS/ML 3 ML PEN SC SCH ×4 (09:32→20:36)
[2017-05-27] MEDS: HEPARIN SOD 5000 UNIT/0.5 ML CARP SQ SCH ×2 (09:32→20:37)
--- NOTE | 2017-05-27 10:14 | Surgery Progress Note ---
Surgery Progress Note Date of Service May 27, 2017. Subjective Post OP Day: 4 + feeling well, + complaints (still with some pain), + bowel movement, + flatus , + diet (eating only OK), No nausea, No vomiting Objective Vital Signs: Date Time Temp Pulse Resp B/P (MAP) Pulse Ox O2 Delivery O2 Flow Rate FiO2 05/27/17 08:10 36.7 102 17 138/89 (105) 97 Room Air 05/27/17 07:25 Room Air 05/27/17 00:30 Room Air 05/26/17 23:31 37.3 102 20 110/77 (88) 94 Room Air 05/26/17 20:15 97 Room Air 05/26/17 20:01 36.9 94 16 120/83 (95) 98 Room Air 05/26/17 16:15 97 Room Air 05/26/17 15:47 37.9 105 18 146/87 (106) 97 Room Air General Appearance: WD/WN, no apparent distress Head: normocephalic, atraumatic Neck: supple, trachea midline Respiratory/Chest: lungs clear Cardiovascular: regular rate, rhythm, + tachycardia Abdomen: normal bowel sounds, soft, + distended, + tenderness (mild) Incision(s): clean, dry, intact Extremities: non-tender, no pedal edema Laboratory Results: Results Past 24 Hours Test 05/26/17 11:53 05/26/17 17:11 05/26/17 20:40 05/26/17 21:30 Range/Units Bedside Glucose 240 157 148 70-99 mg/dl Urine Color DK YELLOW Urine Appearance CLEAR CLEAR Urine pH 5.5 4.5-7.5 Urine Specific [place] 1.019 1.000-1.030 Urine Protein NEG NEG Urine Glucose (UA) 1+ NEG Urine Ketones NEG NEG Urine Occult Blood TRACE NEG Urine Nitrite NEG NEG Urine Bilirubin NEG NEG Urine Urobilinogen POS NEG Urine Leukocyte Esterase SMALL NEG Urine WBC (Auto) 5-10 0-5 /hpf Urine RBC (Auto) 10-30 0-4 /hpf Urine Hyaline Casts (Auto) 5-10 0-5 /lpf Urine Epithelial Cells (Auto) 10-20 0-5 /lpf Urine Bacteria (Auto) NEG NEG Test 05/27/17 06:11 05/27/17 08:01 Range/Units White Blood Count 3.92 4.8-10.8 K/uL Red Blood Count 4.25 4.7-6.1 M/uL Hemoglobin 11.2 14.0-18.0 g/dL Hematocrit 34.9 42-52 % Mean Corpuscular Volume 82.1 80-100 fL Mean Corpuscular Hemoglobin 26.4 25-34 pg Mean Corpuscular Hemoglobin Concent 32.1 32-36 g/dl RDW Standard Deviation 44.6 36.4-46.3 fL RDW Coefficient of Variation 14.8 11.5-14.5 % Platelet Count 252 130-400 K/uL Mean Platelet Volume 9.7 7.4-10.4 fL Sodium Level 133 136-145 mmol/L Potassium Level 3.6 3.5-5.1 mmol/L Chloride Level 99 98-107 mmol/L Carbon Dioxide Level 29 21-32 mmol/L Anion Gap 4.0 3-11 mmol/L Blood Urea Nitrogen 4 7-18 mg/dl Creatinine 0.32 0.60-1.40 mg/dl Est Creatinine Clear Calc Drug Dose 264.1 ml/min Estimated GFR () > 150.0 Estimated GFR (Non- > 150.0 BUN/Creatinine Ratio 13.6 10-20 Random Glucose 152 70-99 mg/dl Calcium Level 7.5 8.5-10.1 mg/dl Total Bilirubin 0.5 0.2-1 mg/dl Direct Bilirubin 0.2 0-0.2 mg/dl Aspartate Amino Transf (AST/SGOT) 93 15-37 U/L Alanine Aminotransferase (ALT/SGPT) 157 12-78 U/L Alkaline Phosphatase 253 45-117 U/L Total Protein 5.1 6.4-8.2 gm/dl Albumin 1.4 3.4-5.0 gm/dl Bedside Glucose 152 70-99 mg/dl Microbiology Results 05/26/17 Blood Culture, Received Pending 05/26/17 Blood Culture, Received Pending 05/26/17 Urine Culture, Received Pending Assessment & Plan Hodgkin's lymphoma -plans to treat with chemo as outpatient; appt on Sunday -marimar out -taking po only OK -pain better but still significant -GI agrees with medical teams plan for elevated LFTs, ? related to lymphoma -medicine wants to keep one more day, discharge in AM
--- NOTE | 2017-05-27 10:33 | Hospitalist Progress Note ---
Hospitalist Progress Note Date of Service May 27, 2017. (Rosangela Muñoz ., FLOYD) Subjective Pt evaluation today including: conversation w/ patient, physical exam, chart review, lab review, review of inpatient medication list Voiding: no voiding problems Mr. Evans became diaphoretic and sob last night. He is better this morning though his tachycardia persists. He also complains of abdominal pain as it's been about 6 hours since his last medication dose. Per nursing, he had a large bowel movement this morning. ROS Constitutional: no chills, aches, sweats or fever Respiratory: no sob,cough, sputum, or wheezing Cardiac: no chest pain, palpitations, edema, orthopnea or lightheadedness GI: see HPI : no dysuria or hesitancy Extremities: no joint pain or weakness Skin: no rash All other systems reviewed and negative (Rosangela Muñoz .FLOYD) Medications Medications Administered Medications (Trade) Dose Ordered Sig/Chris Route Start Time Stop Time Status Last Admin Dose Admin Lactated Ringer's 1,000 ml @ 15 mls/hr Q24H IV 05/22/17 06:00 05/22/17 14:09 DC 05/22/17 08:38 15 MLS/HR Fentanyl Citrate (Fentanyl Inj) 50 mcg Q5M PRN IV 05/22/17 09:00 05/22/17 16:00 DC 05/22/17 14:08 50 MCG Lidocaine HCl (Xylocaine 1% Inj (Local)) 40 ml STK-MED ONCE .ROUTE 05/22/17 09:57 05/22/17 09:58 DC 05/22/17 12:59 20 ML Heparin Sodium (Porcine) (Heparin 100 Unit/ml 5ml Flush) 25 ml STK-MED ONCE .ROUTE 05/22/17 09:57 05/22/17 09:58 DC 05/22/17 12:58 5 ML Bacitracin (Bacitracin Inj) 50,000 units STK-MED ONCE .ROUTE 05/22/17 09:57 05/22/17 09:58 DC 05/22/17 11:07 50,000 UNITS Miscellaneous (Surgicel Absorb Hemostat 2in X 14in) 1 ea ONE ONCE TOP 05/22/17 11:42 05/22/17 11:47 DC 05/22/17 11:47 1 EA Lactated Ringer's 1,000 ml @ 125 mls/hr Q8H IV 05/22/17 15:15 05/23/17 09:47 DC 05/23/17 05:50 75 MLS/HR Morphine Sulfate (MoRPHine SULFATE INJ) 4 mg Q1H PRN IV 05/22/17 13:45 06/05/17 13:44 05/25/17 23:46 4 MG Insulin Aspart (novoLOG ASPART) SLIDING SCALE If C... ACHS SC 05/22/17 16:00 06/21/17 15:59 05/27/17 09:32 3 UNITS Aspirin (Ecotrin Tab) 81 mg QAM PO 05/23/17 09:00 06/22/17 08:59 05/27/17 09:21 81 MG Gabapentin (Neurontin Cap) 300 mg TID PO 05/22/17 21:00 06/21/17 20:59 05/27/17 09:21 300 MG Oxycodone HCl (Roxicodone Immediate Rel Tab) 10 mg Q4H PRN PO 05/22/17 13:45 06/05/17 13:44 05/26/17 05:22 10 MG Pantoprazole Sodium (Protonix Tab) 40 mg QAM PO 05/23/17 09:00 06/22/17 08:59 05/27/17 09:21 40 MG Phenytoin Sodium (Dilantin Er Cap) 300 mg QPM PO 05/22/17 21:00 06/21/17 20:59 05/25/17 20:19 300 MG Sertraline HCl (Zoloft Tab) 50 mg HS PO 05/22/17 21:00 06/21/17 20:59 05/26/17 20:03 50 MG Tamsulosin HCl (Flomax Cap) 0.4 mg HS PO 05/22/17 21:00 06/21/17 20:59 05/26/17 20:03 0.4 MG Timolol Maleate (Timoptic 0.25% Oph Soln) 1 drops QAM OPR 05/23/17 09:00 06/22/17 08:59 05/27/17 09:21 1 DROPS Pneumococcal Polysaccharide Vaccine (Pneumovax-23 Inj) 25 mcg ONCE ONCE IM. 05/22/17 15:15 05/22/17 15:16 DC 05/23/17 00:53 25 MCG Potassium Chloride/Sodium Chloride 1,000 ml @ 75 mls/hr [id number] IV 05/23/17 10:15 05/24/17 09:36 DC 05/24/17 02:24 125 MLS/HR Oxycodone/ Acetaminophen (Percocet 5-325mg Tab) 1 tab Q4H PRN PO 05/23/17 11:00 05/26/17 12:11 DC 05/25/17 13:23 1 TAB Lidocaine HCl (Xylocaine Jelly 2%) 1 APPLICATION PER URETHRA FOR URIN... PRN PRN EXT 05/23/17 15:30 06/22/17 15:29 05/23/17 15:57 1 ML Calcium Carbonate (Tums Chew Tab) 500 mg Q6H PRN PO 05/23/17 18:30 06/22/17 18:29 05/23/17 21:20 500 MG Senna (Senokot Tab) 17.2 mg QAM PO 05/24/17 09:00 06/23/17 08:59 05/27/17 09:21 17.2 MG Senna (Senokot Tab) 17.2 mg 1930 ONCE PO 05/23/17 19:30 05/23/17 19:31 DC 05/23/17 21:18 17.2 MG Polyethylene (Miralax Powder Packet) 17 gm DAILY PRN PO 05/23/17 19:30 06/22/17 19:29 05/25/17 15:37 17 GM Heparin Sodium (Porcine) (Heparin Sq 5000 Unit/0.5ml) 5,000 unit Q12 SQ 05/24/17 12:30 06/23/17 12:29 05/27/17 09:32 5,000 UNIT Sodium Chloride 1,000 ml @ 75 mls/hr [id number] IV 05/24/17 09:45 05/26/17 16:54 DC 05/26/17 13:19 75 MLS/HR Phytonadione 10 mg/Sodium Chloride 51 ml @ 102 mls/hr ONE ONCE IV 05/25/17 16:00 05/25/17 16:29 DC 05/25/17 16:14 102 MLS/HR Insulin Glargine (Lantus Solostar Pen) 10 units HS SC 05/25/17 21:00 06/24/17 20:59 05/26/17 21:13 10 UNITS Oxycodone/ Acetaminophen (Percocet 5-325mg Tab) @ Q4H PRN PO 05/26/17 12:15 06/06/17 10:59 05/27/17 09:41 1 TAB Sodium Chloride 1,000 ml @ 80 mls/hr [id number] IV 05/26/17 22:00 06/25/17 21:59 05/27/17 05:11 80 MLS/HR (Rosangela Muñoz CRNP) Objective Vital Signs Date Time Temp Pulse Resp B/P (MAP) Pulse Ox O2 Delivery O2 Flow Rate FiO2 05/27/17 08:10 36.7 102 17 138/89 (105) 97 Room Air 05/27/17 07:25 Room Air 05/27/17 00:30 Room Air 05/26/17 23:31 37.3 102 20 110/77 (88) 94 Room Air 05/26/17 20:15 97 Room Air 05/26/17 20:01 36.9 94 16 120/83 (95) 98 Room Air 05/26/17 16:15 97 Room Air 05/26/17 15:47 37.9 105 18 146/87 (106) 97 Room Air (Rosangela Muñoz CRNP) Physical Exam Notes: General: no distress Eyes: normal inspection, PERLL Respiratory: chest non tender, clear to auscultation, normal breath sounds, no respiratory distress, no accessory muscle use Cardiac: regular rate and rhythm, no rub or gallop, no murmur, no edema, no jvd GI/: active bowel sounds, tender abdomen to palpation, distended, soft Extremities: normal range of motion, normal strength, non tender Neuro/Psych: alert and oriented x 3, flat affect Skin: normal color, dry (Rosangela Muñoz CRNP) Laboratory Results Last 24 Hours Test 05/26/17 11:53 05/26/17 17:11 05/26/17 20:40 05/26/17 21:30 Bedside Glucose 240 mg/dl 157 mg/dl 148 mg/dl Urine Color DK YELLOW Urine Appearance CLEAR Urine pH 5.5 Urine Specific [place] 1.019 Urine Protein NEG Urine Glucose (UA) 1+ Urine Ketones NEG Urine Occult Blood TRACE Urine Nitrite NEG Urine Bilirubin NEG Urine Urobilinogen POS Urine Leukocyte Esterase SMALL Urine WBC (Auto) 5-10 /hpf Urine RBC (Auto) 10-30 /hpf Urine Hyaline Casts (Auto) 5-10 /lpf Urine Epithelial Cells (Auto) 10-20 /lpf Urine Bacteria (Auto) NEG Test 05/27/17 06:11 05/27/17 08:01 05/27/17 10:13 White Blood Count 3.92 K/uL Red Blood Count 4.25 M/uL Hemoglobin 11.2 g/dL Hematocrit 34.9 % Mean Corpuscular Volume 82.1 fL Mean Corpuscular Hemoglobin 26.4 pg Mean Corpuscular Hemoglobin Concent 32.1 g/dl RDW Standard Deviation 44.6 fL RDW Coefficient of Variation 14.8 % Platelet Count 252 K/uL Mean Platelet Volume 9.7 fL Sodium Level 133 mmol/L Potassium Level 3.6 mmol/L Chloride Level 99 mmol/L Carbon Dioxide Level 29 mmol/L Anion Gap 4.0 mmol/L Blood Urea Nitrogen 4 mg/dl Creatinine 0.32 mg/dl Est Creatinine Clear Calc Drug Dose 264.1 ml/min Estimated GFR () > 150.0 Estimated GFR (Non- > 150.0 BUN/Creatinine Ratio 13.6 Random Glucose 152 mg/dl Calcium Level 7.5 mg/dl Total Bilirubin 0.5 mg/dl Direct Bilirubin 0.2 mg/dl Aspartate Amino Transf (AST/SGOT) 93 U/L Alanine Aminotransferase (ALT/SGPT) 157 U/L Alkaline Phosphatase 253 U/L Total Protein 5.1 gm/dl Albumin 1.4 gm/dl Bedside Glucose 152 mg/dl (Rosangela Muñoz CRNP) Assessment and Plan Mr. Evans is a 51 y/o male with PMHx of T2DM with Peripheral Neuropathy and CVA with L Residual Deficits who is S/P Open Retroperitoneal Mass Bx, Excisional Bx of Soft Tissue of L Lumbar Mass, and A Port in L Jugular. Hospitalist consulted for tachycardia and weakness. Sinus Tachycardia: - EKG reviewed that shows sinus tachy without ischemic changes or other worrisome changes - tachycardia seems likely due to pain at this point - Continue oxycodone - mildly hyponatremic but otherwise electrolytes wnl - CT negative for PE - procalcitonin pending, CXR last evening shows possible right mild infiltrate, UC pending, bc pending - may need to initiate antibiotics pending results - no longer febrile, fever resolved last night on its own Hyponatremia - resolving - likely due to dehydration - IVF discontinued last night as patient is up 7L - Na 133 today Elevated LFTs - appears chronic - continues to trend down - INR elevated at 1.9 on admission - given IV vit K 05/25- 1.1 today - possible due to poor po intake? - hepatitis panel negative, SHWETA pending - consult GI - feel this is part of the lymphoma process - monitor outpatient Anemia - serum iron low, ferritin high - likely acute phase reactant Urinary Retention with BPH: - KUB - SBO vs ileus - no nausea or vomiting - no intervention at this time - discontinued minaya - patient voiding - UC showed no growth 05/23 - repeat pending - Continue Flomax 0.4 mg HS T2DM with Peripheral Neuropathy: - bsgs improved with tightened ss, continue bsgs AC& HS - continue Gabapentin 300 mg TID CVA with L Residual Deficits/history of seizure - ASA 81 mg daily; Will defer Plavix 75 mg daily to primary team when they would like to continued - Last seizure 2011 - serum Dilantin a bit low however as seizure history is remote, will leave dose as it is and patient can follow up outpatient - continue Dilantin 300 mg daily and Zoloft 50 mg HS Dispo - OT eval pending, will need reeval by PT (Rosangela Muñoz ., FLOYD) Attending Attestation - Pt seen/examined, chart reviewed, care plan d/w FLOYD Muñoz. I agree w/ the hickman components of her documentation. Pt unchanged today. Abd pain is unchanged; affect unchanged; does admit to some depression. Spoke with father by phone - does feel his son is depressed. 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 Since then he has had memory loss and cognitive impairment. Tm 37.9 tachy multiple stools gen - looks the same as yesterday mouth - MMM neck - mild JVD heart - tachy, s1, s2 lungs - mild b/l wheeze, mild rales bases abd - softly distended, BS+, no tenderness ext - no edema neuro - left sided hemiplegia skin - incisions clean on abdominal wall labs - Na 133 LFTs again modestly improved A/P: 1. low-grade fever - resolved w/o antibiotics. Urine cx neg. Blood cx's neg. I am not convinced he has pneumonia; no symptoms of such. Fever may be 2nd to lymphoma. 2. probable depression - consider antidepressant. 3. coagulopathy - likely vit K def - resolved. 4. abnormal LFTs - GI consult appreciated - thought to be due to lymphoma, but awaiting rest of w/u. LFTs improving daily. 5. hyponatremia - improved; I believe he is mildly volume overloaded (7+ L positive since admission). Stop IVF; lasix 20mg po x 1. 6. newly dx Hodgkin's lymphoma - needs bone marrow bx followed by chemo. 7. severe hypoalbuminemia - due to severe protein calorie malnutrition. Agree with boost supplementation. Pt will third space quickly with the low albumin. 8. FEN - would stop fluids at this time; repeat labs am. PT, OT both recommending rehab father agrees that he and his likely would not be able to care for him at this time will need to pursue rehab tomorrow Nicholas Barr MD (Nicholas Barr MD)
--- NOTE | 2017-05-27 11:39 | HEME/ONC PROGRESS NOTE ---
DATE: 05/27/2017 DIAGNOSES: 1. Status post day #4 laparoscopic retroperitoneal lymphadenectomy. 2. Low grade fever. 3. Elevated liver transaminases. 4. Hypoalbuminemia. 5. Coagulopathy attributable to nutritional deficit/vitamin K deficiency. SUBJECTIVE: Jarett is a pleasant 51-year-old gentleman well known to me seeing your initial consultation on 05/15/2017 with the diagnosis of retroperitoneal lymphadenopathy. He was subsequently admitted to [facility] on the 23 of May and underwent a laparoscopic retroperitoneal lymphadenectomy, performed by Dr. Bradshaw. However, postop, he developed low grade fever as well as increased liver transaminases and mild coagulopathy. For the coagulopathy, I had recommended vitamin K, which was given which resulted in a total correction. His PT and INR was performed yesterday measuring 11.4 and 1.1 respectively. Pathology results are final. 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 PET scan has been done; however, will need a staging bone marrow biopsy and aspiration. The patient has also had MediPort inserted in anticipation of receiving chemotherapy. Clinically, doing a little better today and pain seems to be controlled. Nursing offers no overnight difficulties. PHYSICAL EXAMINATION: GENERAL: Jarett is in no acute distress, awake and alert. His affect is flat, which is his baseline. VITAL SIGNS: Temperature of 36.7, pulse 102, respirations 17, blood pressure 138/89. SKIN: Without rash or lesion. HEENT: Oral mucosa without erythema or ulceration. NECK: Supple. HEART: Regular rate and rhythm. LUNGS: Clear to auscultation bilaterally. ABDOMEN: Mildly distended. No rigidity or guarding. Bowel sounds are hypoactive. EXTREMITIES: No clubbing, cyanosis or edema. NEUROLOGIC: Grossly intact. LABORATORY DATA: WBC count 3920, hemoglobin 11.2, and platelet count 252,000. Sodium 133, potassium 3.6, chloride 99, carbon dioxide 29, BUN 4, and creatinine 0.32. AST 93, ALT 157, and albumin 1.4. IMPRESSION: 1. Day #4 status post laparoscopic retroperitoneal lymphadenectomy. 2. Nodular sclerosing Hodgkin lymphoma. 3. Hypoalbuminemia. 4. Elevated liver transaminases. 5. Coagulopathy. 6. Low grade fever. PLAN: Discussed confirmation of diagnosis with Jarett today explaining that he suffers from a nodular sclerosing Hodgkin lymphoma. Generally, curable disease; however, he will require chemotherapy. MediPort has been placed and Jarett will require staging bone marrow biopsy and aspiration. We will ask Dr. Isabel to pull marrow tomorrow morning as there is insufficient laboratory support to process the specimen on a Sunday. He seems to be clinically better and hopefully can be discharged in the next couple of days. I anticipate offering him ABVD, which is current standard of care; however, there is a new literature recently published replacing bleomycin with brentuximab. Jarett's liver transaminases seems to be normalizing but I am concerned with his low albumin and initiating chemotherapy without some form of nutritional support. It may be reasonable to give him some albumin while hospitalized and possibly look into a dietary/face cleaner consult. Again, thank you for allowing me to participate in his care. We will continue to follow him periodically during his hospital stay. RASHAD
[2017-05-27] MEDS ORDERED: FUROSEMIDE 20 MG TAB PO STA (13:08)
[2017-05-27 13:30] VITALS: Ht 172.7 cm; Wt 78.2 kg
[2017-05-27 15:13] VITALS: BP 117/78; PULSE 115; TEMP 36.5; O2SAT 90
[2017-05-27 16:15] VITALS: BP_SYST 108; BP_SYST 110; BP_SYST 131; BP_DIAS 69; BP_DIAS 77; BP_DIAS 81; PULSE 100; PULSE 102; PULSE 111
[2017-05-27] MEDS: BOOST GLUCOSE CONTROL PO SCH (17:45)
[2017-05-27] MEDS: TAMSULOSIN HCL 0.4 MG CAP PO SCH (20:30)
[2017-05-27] MEDS: PHENYTOIN SODIUM ER 100 MG CAP PO SCH (20:30)
[2017-05-27] MEDS: SERTRALINE HCL 50 MG TAB PO SCH (20:31)
[2017-05-27] MEDS: INSULIN GLARGINE SOLOSTAR 100 UNITS/ML 3 ML PEN SC SCH (20:37)
[2017-05-27 23:44] VITALS: BP 112/74; PULSE 101; TEMP 37.6; O2SAT 95
[2017-05-28] VITALS (7 sets, daily range): BP systolic 107–139; BP diastolic 60–87; PULSE 100–121; TEMP 36.4–37.6; O2SAT 93–95
[2017-05-28 06:40] LABS: EOS % 0.2 %; EOS ABS # 0.01 K/uL (0-0.5); HEMOGLOBIN 10.8 g/dL (14.0-18.0); IG# 0.04 K/uL (0.00-0.02); LYMPH % 5.8 %; LYMPH ABS # 0.29 K/uL (1.2-3.4); MEAN CELL VOLUME 81.7 fL (80-100); MEAN CORPUSCULAR HEMOGLOBIN 26.7 pg (25-34); MEAN CORPUSCULAR HGB CONC 32.7 g/dl (32-36); MEAN PLATELET VOLUME 9.1 fL (7.4-10.4); MONO % 8.4 %; MONO ABS # 0.42 K/uL (0.11-0.59); NEUT % 84.8 %; NEUT ABS # 4.25 K/uL (1.4-6.5); PLATELET COUNT 270 K/uL (130-400); RED CELL DISTRIBUTION WIDTH SD 44.9 fL (36.4-46.3); WHITE BLOOD COUNT 5.01 K/uL (4.8-10.8)
[2017-05-28 06:51] LABS: INR 1.1 (0.9-1.1)
[2017-05-28 07:09] LABS: ALBUMIN 1.4 gm/dl (3.4-5.0); ALT/SGPT 116 U/L (12-78); BLOOD UREA NITROGEN 5 mg/dl (7-18); CALCIUM 7.7 mg/dl (8.5-10.1); CARBON DIOXIDE 29 mmol/L (21-32); CREATININE 0.33 mg/dl (0.60-1.40); GLUCOSE 154 mg/dl (70-99); POTASSIUM 4.1 mmol/L (3.5-5.1); SODIUM 133 mmol/L (136-145)
[2017-05-28 07:13] LABS: ALKALINE PHOSPHATASE 234 U/L (45-117); AST/SGOT 54 U/L (15-37)
[2017-05-28] MEDS: OXYCODONE/ACETAMINOPHEN 5-325 TAB PO PRN ×2 (07:42→14:02)
--- NOTE | 2017-05-28 08:08 | SURGERY PROGRESS NOTE ---
DATE: 05/28/2017 Jarett is 6th postoperative day status post laparoscopic with open procedure to biopsy retroperitoneal mass that the final path report showed it to be a malignant Hodgkin's lymphoma. He also had a subcutaneous tissue removed from his lower back, I think that it may have been metastatic lesions, but it was a squamous keratosis, benign. Dr. James's note from oncology was appreciated. Jarett is sitting there in bed in no acute distress at this time, just generally feeling lousy. His oral intake according to him is good, but a question if all the significance of is intact. His vital signs showed him a temperature last night of 37.6, pulse 108 to 121, blood pressure 122/85, O2 sats 90 on room air. I&O, the patient has had 3 bowel movements. Urine output is 1225 yesterday. The abdomen is soft, it is not distended. The right upper quadrant has small incision, benign and jasper intact. At this point, we will leave further management to the medical service. We will discuss with them about transferring to their services surgically. There is nothing more that we can be done. He has an A-port that can certainly be accessed. The other issue that we discussed with the medical service, the patient had been on Plavix and whether or not it should be resumed once the more invasive procedures have completed. I suspect he is ready for a bone marrow biopsy today.
[2017-05-28] MEDS: BOOST GLUCOSE CONTROL PO SCH ×2 (08:49→18:08)
[2017-05-28] MEDS: TIMOLOL MALEATE 0.25% OP SOLN 5 ML BTL OPR SCH (08:50)
[2017-05-28] MEDS: ASPIRIN 81 MG ECTAB PO SCH (08:51)
[2017-05-28] MEDS: PANTOprazole SOD 40 MG TAB PO SCH (08:51)
[2017-05-28] MEDS: GABAPENTIN 300 MG CAP PO SCH ×3 (08:51→21:36)
[2017-05-28] MEDS: SENNA 8.6 MG TAB PO SCH (08:52)
[2017-05-28] MEDS: HEPARIN SOD 5000 UNIT/0.5 ML CARP SQ SCH ×2 (09:25→21:39)
[2017-05-28] MEDS: INSULIN ASPART 100 UNITS/ML 3 ML PEN SC SCH ×4 (09:25→21:38)
[2017-05-28] MEDS ORDERED: LIDOCAINE HCL 1% 20 ML VIAL ONE (10:28)
[2017-05-28] MEDS ORDERED: NURSING VERBAL MED ORDER ONE (10:30)
--- NOTE | 2017-05-28 11:13 | Hematology/Oncology Prog Note ---
Hematology/Onc Progress Note Date of Service May 28, 2017. Diagnoses Hodgkin's lymphoma Medications Medications Administered Medications (Trade) Dose Ordered Sig/Chris Route Start Time Stop Time Status Last Admin Dose Admin Lactated Ringer's 1,000 ml @ 15 mls/hr Q24H IV 05/22/17 06:00 05/22/17 14:09 DC 05/22/17 08:38 15 MLS/HR Fentanyl Citrate (Fentanyl Inj) 50 mcg Q5M PRN IV 05/22/17 09:00 05/22/17 16:00 DC 05/22/17 14:08 50 MCG Lidocaine HCl (Xylocaine 1% Inj (Local)) 40 ml STK-MED ONCE .ROUTE 05/22/17 09:57 05/22/17 09:58 DC 05/22/17 12:59 20 ML Heparin Sodium (Porcine) (Heparin 100 Unit/ml 5ml Flush) 25 ml STK-MED ONCE .ROUTE 05/22/17 09:57 05/22/17 09:58 DC 05/22/17 12:58 5 ML Bacitracin (Bacitracin Inj) 50,000 units STK-MED ONCE .ROUTE 05/22/17 09:57 05/22/17 09:58 DC 05/22/17 11:07 50,000 UNITS Miscellaneous (Surgicel Absorb Hemostat 2in X 14in) 1 ea ONE ONCE TOP 05/22/17 11:42 05/22/17 11:47 DC 05/22/17 11:47 1 EA Lactated Ringer's 1,000 ml @ 125 mls/hr Q8H IV 05/22/17 15:15 05/23/17 09:47 DC 05/23/17 05:50 75 MLS/HR Morphine Sulfate (MoRPHine SULFATE INJ) 4 mg Q1H PRN IV 05/22/17 13:45 06/05/17 13:44 05/25/17 23:46 4 MG Insulin Aspart (novoLOG ASPART) SLIDING SCALE If C... ACHS SC 05/22/17 16:00 06/21/17 15:59 05/28/17 09:25 5 UNITS Aspirin (Ecotrin Tab) 81 mg QAM PO 05/23/17 09:00 06/22/17 08:59 05/28/17 08:51 81 MG Gabapentin (Neurontin Cap) 300 mg TID PO 05/22/17 21:00 06/21/17 20:59 05/28/17 08:51 300 MG Oxycodone HCl (Roxicodone Immediate Rel Tab) 10 mg Q4H PRN PO 05/22/17 13:45 06/05/17 13:44 05/26/17 05:22 10 MG Pantoprazole Sodium (Protonix Tab) 40 mg QAM PO 05/23/17 09:00 06/22/17 08:59 05/28/17 08:51 40 MG Phenytoin Sodium (Dilantin Er Cap) 300 mg QPM PO 05/22/17 21:00 06/21/17 20:59 05/27/17 20:30 300 MG Sertraline HCl (Zoloft Tab) 50 mg HS PO 05/22/17 21:00 06/21/17 20:59 05/27/17 20:31 50 MG Tamsulosin HCl (Flomax Cap) 0.4 mg HS PO 05/22/17 21:00 06/21/17 20:59 05/27/17 20:30 0.4 MG Timolol Maleate (Timoptic 0.25% Oph Soln) 1 drops QAM OPR 05/23/17 09:00 06/22/17 08:59 05/28/17 08:50 1 DROPS Pneumococcal Polysaccharide Vaccine (Pneumovax-23 Inj) 25 mcg ONCE ONCE IM. 05/22/17 15:15 05/22/17 15:16 DC 05/23/17 00:53 25 MCG Potassium Chloride/Sodium Chloride 1,000 ml @ 75 mls/hr [id number] IV 05/23/17 10:15 05/24/17 09:36 DC 05/24/17 02:24 125 MLS/HR Oxycodone/ Acetaminophen (Percocet 5-325mg Tab) 1 tab Q4H PRN PO 05/23/17 11:00 05/26/17 12:11 DC 05/25/17 13:23 1 TAB Lidocaine HCl (Xylocaine Jelly 2%) 1 APPLICATION PER URETHRA FOR URIN... PRN PRN EXT 05/23/17 15:30 06/22/17 15:29 05/23/17 15:57 1 ML Calcium Carbonate (Tums Chew Tab) 500 mg Q6H PRN PO 05/23/17 18:30 06/22/17 18:29 05/23/17 21:20 500 MG Senna (Senokot Tab) 17.2 mg QAM PO 05/24/17 09:00 06/23/17 08:59 05/27/17 09:21 17.2 MG Senna (Senokot Tab) 17.2 mg 1930 ONCE PO 05/23/17 19:30 05/23/17 19:31 DC 05/23/17 21:18 17.2 MG Polyethylene (Miralax Powder Packet) 17 gm DAILY PRN PO 05/23/17 19:30 06/22/17 19:29 05/25/17 15:37 17 GM Heparin Sodium (Porcine) (Heparin Sq 5000 Unit/0.5ml) 5,000 unit Q12 SQ 05/24/17 12:30 06/23/17 12:29 05/28/17 09:25 5,000 UNIT Sodium Chloride 1,000 ml @ 75 mls/hr [id number] IV 05/24/17 09:45 05/26/17 16:54 DC 05/26/17 13:19 75 MLS/HR Phytonadione 10 mg/Sodium Chloride 51 ml @ 102 mls/hr ONE ONCE IV 05/25/17 16:00 05/25/17 16:29 DC 05/25/17 16:14 102 MLS/HR Insulin Glargine (Lantus Solostar Pen) 10 units HS SC 05/25/17 21:00 06/24/17 20:59 05/27/17 20:37 10 UNITS Oxycodone/ Acetaminophen (Percocet 5-325mg Tab) @ Q4H PRN PO 05/26/17 12:15 06/06/17 10:59 05/28/17 07:42 1 TAB Sodium Chloride 1,000 ml @ 80 mls/hr [id number] IV 05/26/17 22:00 05/27/17 12:46 DC 05/27/17 10:41 80 MLS/HR Furosemide (Lasix Tab) 20 mg NOW STAT PO 05/27/17 13:08 05/27/17 13:09 DC 05/27/17 13:29 20 MG Enteral Nutritional Formula (Boost Glucose Control) 1 can BIDM PO 05/27/17 17:45 06/26/17 17:44 05/28/17 08:49 1 CAN Subjective She has been doing fairly well. Staging will include a bone marrow biopsy. I reviewed this with the patient as well as his parents today. Review of Systems: Constitutional: Negative for night sweats, or fever Eyes: Negative for event change of vision ENT: Negative for epistaxis, nasal discharge, sore throat, or deafness Cardiovascular: Negative for chest pain, palpitations, dizziness, diaphoresis Respiratory: Negative for new shortness of breath,hemoptysis, or purulent cough Gastrointestinal: Negative for diarrhea, hematemesis, melena, nausea, vomiting , or dyspepsia Integumentary (skin): Negative for rash or jaundice discoloration Genitourinary: Negative for urinary frequency, hematuria, or dysuria Neurological: Negative for weakness, seizure activity, headache, or dizziness Lymphatic/Hematologic: Negative for petechiae, bleeding or new adenopathy Musculoskeletal: Negative for new joint or back pain Allergic/Immunologic: Negative for unusual rash or pruritis. Vital Signs Vital Signs Past 12 Hours Date Time Temp Pulse Resp B/P (MAP) Pulse Ox O2 Delivery O2 Flow Rate FiO2 05/28/17 09:59 123/60 (81) 123/75 (91) 107/71 (83) 05/28/17 07:38 37.2 104 18 139/81 (100) 93 Room Air 05/28/17 07:33 Room Air 05/28/17 05:53 108 132/85 (101) 112 122/79 (93) 121 119/73 (88) 05/27/17 23:45 Room Air 05/27/17 23:44 37.6 101 18 112/74 (87) 95 Room Air Physical Exam Constitutional: vitals are stable. Eyes: Eyes are PAIGE EOMI without conjuctival erythema or icterus. ENT: External examination was negative for masses. Neck: Negative for masses or palpable thyromegaly Respiratory: Lung sounds were generally clear bilaterally Cardiovascular: Heart was RRR without significant murmur, gallops aoe rubs Gastrointestinal: No palpable hepatic or splenomegaly. The abdomen was soft with normal bowel sounds. Incision from recent laparoscopy and subsequent retroperitoneal node biopsy is well-healed Lymphatic system: there was no palpable peripheral lymphadenopathy Musculoskeletal System: The musculoskeletal system seemed concordant with age. Skin: The skin was negative for jaundice. Neurologic exam: History of CVA with resultant left hemiparesis Psychiatric exam: Was essentially negative with normal mood and effect. Extremities: negative for edema Laboratory Last 24 Hours Test 05/27/17 12:18 05/27/17 16:56 05/27/17 20:33 05/28/17 05:45 Bedside Glucose 186 mg/dl 137 mg/dl 161 mg/dl White Blood Count 5.01 K/uL Red Blood Count 4.04 M/uL Hemoglobin 10.8 g/dL Hematocrit 33.0 % Mean Corpuscular Volume 81.7 fL Mean Corpuscular Hemoglobin 26.7 pg Mean Corpuscular Hemoglobin Concent 32.7 g/dl Platelet Count 270 K/uL Mean Platelet Volume 9.1 fL Neutrophils (%) (Auto) 84.8 % Lymphocytes (%) (Auto) 5.8 % Monocytes (%) (Auto) 8.4 % Eosinophils (%) (Auto) 0.2 % Basophils (%) (Auto) 0.0 % Neutrophils # (Auto) 4.25 K/uL Lymphocytes # (Auto) 0.29 K/uL Monocytes # (Auto) 0.42 K/uL Eosinophils # (Auto) 0.01 K/uL Basophils # (Auto) 0.00 K/uL RDW Standard Deviation 44.9 fL RDW Coefficient of Variation 15.0 % Immature Granulocyte % (Auto) 0.8 % Immature Granulocyte # (Auto) 0.04 K/uL Prothrombin Time 11.2 SECONDS Prothromb Time International Ratio 1.1 Sodium Level 133 mmol/L Potassium Level 4.1 mmol/L Chloride Level 99 mmol/L Carbon Dioxide Level 29 mmol/L Anion Gap 5.0 mmol/L Blood Urea Nitrogen 5 mg/dl Creatinine 0.33 mg/dl Est Creatinine Clear Calc Drug Dose 256.1 ml/min Estimated GFR () > 150.0 Estimated GFR (Non- 148.8 BUN/Creatinine Ratio 15.1 Random Glucose 154 mg/dl Calcium Level 7.7 mg/dl Magnesium Level 1.8 mg/dl Total Bilirubin 0.4 mg/dl Aspartate Amino Transf (AST/SGOT) 54 U/L Alanine Aminotransferase (ALT/SGPT) 116 U/L Alkaline Phosphatase 234 U/L Total Protein 5.0 gm/dl Albumin 1.4 gm/dl Globulin 3.6 gm/dl Albumin/Globulin Ratio 0.4 Assessment & Plan He is doing well. To round out the staging studies we will ask for bone marrow biopsy. This was reviewed with the patient as well as his parents are in the room today. The consent was signed and a bone marrow biopsy and aspirate was obtained for the patient's left posterior iliac crest after applying 1% local regional anesthetic with lidocaine. Both aspirate as well as marrow core was obtained without problem. The patient tolerated procedure well. Marrow will be sent not only for histology but also flow cytometric studies and cytogenetics. Finally again in preparation for chemotherapy if an echocardiogram has not been done recently that is within a past few months and went to be updated. NB: after review of chart I don't see where a recent echocardiogram has been done so I will order (Adriamycin therapy candidate)
--- NOTE | 2017-05-28 14:36 | ECHOCARDIOGRAM REPORT ---
*NOTICE TO RECEIVING [employer] This information is strictly Confidential and protected under [place] law. [place] law prohibits you from making any further disclosure of this information unless further disclosure is expressly permitted by the written consent of the person to whom it pertains or is authorized by law. A general authorization for the release of medical or other information is not sufficient for this purpose. Hospital accepts no responsibility if the information is made available to any other person, INCLUDING THE PATIENT. Interpretation Summary * Name: SHAWNEE ROUSE Study Date: 05/28/2017 01:09 PM BP: 107/71 mmHg * Patient Location: [facility]\S\[id number] HR: 104 * : 1965 (M/d/yyyy) Gender: Male Height: 68 in * Age: 51 yrs Ethnicity: CA Weight: 172 lb * Ordering Physician: Higinio Isabel * Referring Physician: Miles Bradshaw * Performed By: Colton Kinney * , [facility] * * Reason For Study: Adriamycin Candidate, Pre-CHEMO eval * BSA: 1.9 m2 * -- Conclusions -- * Left ventricular systolic function is normal. * Grade I diastolic dysfunction, (abnormal relaxation pattern). * Right ventricular systolic pressure is normal. Procedure Details * A complete two-dimensional transthoracic echocardiogram was performed (2D, M-mode, Doppler and color flow Doppler). * There were technical limitations due to patient's supine positioning for imagining Left Ventricle * The left ventricle is normal in size. * There is normal left ventricular wall thickness. * Ejection Fraction = 65-70%. * Left ventricular systolic function is normal. * Grade I diastolic dysfunction, (abnormal relaxation pattern). * The left ventricular wall motion is normal. Right Ventricle * The right ventricle is normal in size and function. * The right ventricular systolic function is normal as assessed by tricuspid annular plane systolic excursion (TAPSE) (normal >1.5 cm). Atria * The left atrial size is normal. * Right atrial size is normal. Mitral Valve * The mitral valve is grossly normal. * Significant mitral regurgitation is absent. Tricuspid Valve * The tricuspid valve is not well visualized, but is grossly normal. * There is trace tricuspid regurgitation. * Right ventricular systolic pressure is normal. Aortic Valve * The aortic valve is normal in structure and function. * No hemodynamically significant valvular aortic stenosis. * There is no significant aortic regurgitation. Pulmonic Valve * The pulmonic valve is not well visualized. Great Vessels * The aortic root is normal size. Pericardium/Pleural * There is no pericardial effusion. MMode 2D Measurements and Calculations IVSd 0.95 cm IVSs 1.1 cm LVIDd 3.3 cm LVIDs 2.1 cm LVPWd 0.92 cm LVPWs 1.1 cm IVS/LVPW 1.0 FS 37.7 % EDV(Teich) 45.1 ml ESV(Teich) 14.0 ml EF(Teich) 69.0 % EDV(cubed) 36.9 ml ESV(cubed) 8.9 ml EF(cubed) 75.8 % % IVS thick 13.9 % % LVPW thick 18.7 % LV mass(C)d 86.4 grams LV mass(C)dI 45.1 grams/m\S\2 LV mass(C)s 56.6 grams LV mass(C)sI 29.5 grams/m\S\2 SV(Teich) 31.1 ml SI(Teich) 16.2 ml/m\S\2 SV(cubed) 28.0 ml SI(cubed) 14.6 ml/m\S\2 Ao root diam 3.0 cm Ao root area 7.2 cm\S\2 ACS 1.5 cm LA dimension 3.8 cm asc Aorta Diam 3.1 cm LA/Ao 1.3 EDV(MOD-sp4) 76.4 ml ESV(MOD-sp4) 26.9 ml EF(MOD-sp4) 64.7 % EDV(MOD-sp2) 91.9 ml ESV(MOD-sp2) 26.7 ml EF(MOD-sp2) 70.9 % SV(MOD-sp4) 49.4 ml SI(MOD-sp4) 25.8 ml/m\S\2 SV(MOD-sp2) 65.1 ml SI(MOD-sp2) 34.0 ml/m\S\2 Doppler Measurements and Calculations MV E max crys 79.3 cm/sec MV A max crys 92.5 cm/sec MV E/A 0.86 MV P1/2t max crys 85.0 cm/sec MV P1/2t 66.1 msec MVA(P1/2t) 3.3 cm\S\2 MV dec slope 376.6 cm/sec\S\2 MV dec time 0.16 sec Ao V2 max 146.6 cm/sec Ao max PG 8.6 mmHg Ao max PG (full) 3.7 mmHg LV V1 max PG 4.9 mmHg LV V1 max 110.8 cm/sec PA V2 max 103.5 cm/sec PA max PG 4.3 mmHg TR max crys 165.3 cm/sec
--- NOTE | 2017-05-28 18:20 | Hospitalist Progress Note ---
Hospitalist Progress Note Date of Service May 28, 2017. (Rosangela Muñoz ., FLOYD) Subjective Pt evaluation today including: conversation w/ patient, physical exam, chart review, lab review, review of inpatient medication list Voiding: no voiding problems Mr. Evans is feeling somewhat better. Getting out to the chair for his shift. Pain is improved ROS Constitutional: no chills, aches, sweats or fever Respiratory: no sob,cough, sputum, or wheezing Cardiac: no chest pain, palpitations, edema, orthopnea or lightheadedness GI: see HPI : no dysuria or hesitancy Extremities: no joint pain or weakness Skin: no rash All other systems reviewed and negative (Rosangela Muñoz CRNP) Medications Medications Administered Medications (Trade) Dose Ordered Sig/Chris Route Start Time Stop Time Status Last Admin Dose Admin Lactated Ringer's 1,000 ml @ 15 mls/hr Q24H IV 05/22/17 06:00 05/22/17 14:09 DC 05/22/17 08:38 15 MLS/HR Fentanyl Citrate (Fentanyl Inj) 50 mcg Q5M PRN IV 05/22/17 09:00 05/22/17 16:00 DC 05/22/17 14:08 50 MCG Lidocaine HCl (Xylocaine 1% Inj (Local)) 40 ml STK-MED ONCE .ROUTE 05/22/17 09:57 05/22/17 09:58 DC 05/22/17 12:59 20 ML Heparin Sodium (Porcine) (Heparin 100 Unit/ml 5ml Flush) 25 ml STK-MED ONCE .ROUTE 05/22/17 09:57 05/22/17 09:58 DC 05/22/17 12:58 5 ML Bacitracin (Bacitracin Inj) 50,000 units STK-MED ONCE .ROUTE 05/22/17 09:57 05/22/17 09:58 DC 05/22/17 11:07 50,000 UNITS Miscellaneous (Surgicel Absorb Hemostat 2in X 14in) 1 ea ONE ONCE TOP 05/22/17 11:42 05/22/17 11:47 DC 05/22/17 11:47 1 EA Lactated Ringer's 1,000 ml @ 125 mls/hr Q8H IV 05/22/17 15:15 05/23/17 09:47 DC 05/23/17 05:50 75 MLS/HR Morphine Sulfate (MoRPHine SULFATE INJ) 4 mg Q1H PRN IV 05/22/17 13:45 06/05/17 13:44 05/25/17 23:46 4 MG Insulin Aspart (novoLOG ASPART) SLIDING SCALE If C... ACHS SC 05/22/17 16:00 06/21/17 15:59 05/28/17 14:06 5 UNITS Aspirin (Ecotrin Tab) 81 mg QAM PO 05/23/17 09:00 06/22/17 08:59 05/28/17 08:51 81 MG Gabapentin (Neurontin Cap) 300 mg TID PO 05/22/17 21:00 06/21/17 20:59 05/28/17 14:02 300 MG Oxycodone HCl (Roxicodone Immediate Rel Tab) 10 mg Q4H PRN PO 05/22/17 13:45 06/05/17 13:44 05/26/17 05:22 10 MG Pantoprazole Sodium (Protonix Tab) 40 mg QAM PO 05/23/17 09:00 06/22/17 08:59 05/28/17 08:51 40 MG Phenytoin Sodium (Dilantin Er Cap) 300 mg QPM PO 05/22/17 21:00 06/21/17 20:59 05/27/17 20:30 300 MG Sertraline HCl (Zoloft Tab) 50 mg HS PO 05/22/17 21:00 06/21/17 20:59 05/27/17 20:31 50 MG Tamsulosin HCl (Flomax Cap) 0.4 mg HS PO 05/22/17 21:00 06/21/17 20:59 05/27/17 20:30 0.4 MG Timolol Maleate (Timoptic 0.25% Oph Soln) 1 drops QAM OPR 05/23/17 09:00 06/22/17 08:59 05/28/17 08:50 1 DROPS Pneumococcal Polysaccharide Vaccine (Pneumovax-23 Inj) 25 mcg ONCE ONCE IM. 05/22/17 15:15 05/22/17 15:16 DC 05/23/17 00:53 25 MCG Potassium Chloride/Sodium Chloride 1,000 ml @ 75 mls/hr [id number] IV 05/23/17 10:15 05/24/17 09:36 DC 05/24/17 02:24 125 MLS/HR Oxycodone/ Acetaminophen (Percocet 5-325mg Tab) 1 tab Q4H PRN PO 05/23/17 11:00 05/26/17 12:11 DC 05/25/17 13:23 1 TAB Lidocaine HCl (Xylocaine Jelly 2%) 1 APPLICATION PER URETHRA FOR URIN... PRN PRN EXT 05/23/17 15:30 06/22/17 15:29 05/23/17 15:57 1 ML Calcium Carbonate (Tums Chew Tab) 500 mg Q6H PRN PO 05/23/17 18:30 06/22/17 18:29 05/23/17 21:20 500 MG Senna (Senokot Tab) 17.2 mg QAM PO 05/24/17 09:00 06/23/17 08:59 05/27/17 09:21 17.2 MG Senna (Senokot Tab) 17.2 mg 1930 ONCE PO 05/23/17 19:30 05/23/17 19:31 DC 05/23/17 21:18 17.2 MG Polyethylene (Miralax Powder Packet) 17 gm DAILY PRN PO 05/23/17 19:30 06/22/17 19:29 05/25/17 15:37 17 GM Heparin Sodium (Porcine) (Heparin Sq 5000 Unit/0.5ml) 5,000 unit Q12 SQ 05/24/17 12:30 06/23/17 12:29 05/28/17 09:25 5,000 UNIT Sodium Chloride 1,000 ml @ 75 mls/hr [id number] IV 05/24/17 09:45 05/26/17 16:54 DC 05/26/17 13:19 75 MLS/HR Phytonadione 10 mg/Sodium Chloride 51 ml @ 102 mls/hr ONE ONCE IV 05/25/17 16:00 05/25/17 16:29 DC 05/25/17 16:14 102 MLS/HR Insulin Glargine (Lantus Solostar Pen) 10 units HS SC 05/25/17 21:00 06/24/17 20:59 05/27/17 20:37 10 UNITS Oxycodone/ Acetaminophen (Percocet 5-325mg Tab) @ Q4H PRN PO 05/26/17 12:15 06/06/17 10:59 05/28/17 14:02 1 TAB Sodium Chloride 1,000 ml @ 80 mls/hr [id number] IV 05/26/17 22:00 05/27/17 12:46 DC 05/27/17 10:41 80 MLS/HR Furosemide (Lasix Tab) 20 mg NOW STAT PO 05/27/17 13:08 05/27/17 13:09 DC 05/27/17 13:29 20 MG Enteral Nutritional Formula (Boost Glucose Control) 1 can BIDM PO 05/27/17 17:45 06/26/17 17:44 05/28/17 18:08 1 CAN (Rosangela Muñoz CRNP) Objective Vital Signs Date Time Temp Pulse Resp B/P (MAP) Pulse Ox O2 Delivery O2 Flow Rate FiO2 05/28/17 14:59 37.6 116 16 118/78 (91) 94 Room Air 05/28/17 09:59 123/60 (81) 123/75 (91) 107/71 (83) 05/28/17 07:38 37.2 104 18 139/81 (100) 93 Room Air 05/28/17 07:33 Room Air 05/28/17 05:53 108 132/85 (101) 112 122/79 (93) 121 119/73 (88) 05/27/17 23:45 Room Air 05/27/17 23:44 37.6 101 18 112/74 (87) 95 Room Air (Rosangela Muñoz CRNP) Physical Exam Notes: General: no distress Eyes: normal inspection, PERLL Respiratory: chest non tender, clear to auscultation, normal breath sounds, no respiratory distress, no accessory muscle use Cardiac: regular rate and rhythm, no rub or gallop, no murmur, no edema, no jvd GI/: active bowel sounds,mild tenderness, soft, distended Extremities: normal range of motion, normal strength, non tender Neuro/Psych: alert and oriented x 3, flat affect Skin: normal color, dry (Rosangela Muñoz CRNP) Laboratory Results Last 24 Hours Test 05/27/17 20:33 05/28/17 00:00 05/28/17 05:45 05/28/17 12:01 Bedside Glucose 161 mg/dl 208 mg/dl White Blood Count 5.01 K/uL Red Blood Count 4.04 M/uL Hemoglobin 10.8 g/dL Hematocrit 33.0 % Mean Corpuscular Volume 81.7 fL Mean Corpuscular Hemoglobin 26.7 pg Mean Corpuscular Hemoglobin Concent 32.7 g/dl Platelet Count 270 K/uL Mean Platelet Volume 9.1 fL Neutrophils (%) (Auto) 84.8 % Lymphocytes (%) (Auto) 5.8 % Monocytes (%) (Auto) 8.4 % Eosinophils (%) (Auto) 0.2 % Basophils (%) (Auto) 0.0 % Neutrophils # (Auto) 4.25 K/uL Lymphocytes # (Auto) 0.29 K/uL Monocytes # (Auto) 0.42 K/uL Eosinophils # (Auto) 0.01 K/uL Basophils # (Auto) 0.00 K/uL RDW Standard Deviation 44.9 fL RDW Coefficient of Variation 15.0 % Immature Granulocyte % (Auto) 0.8 % Immature Granulocyte # (Auto) 0.04 K/uL Prothrombin Time 11.2 SECONDS Prothromb Time International Ratio 1.1 Sodium Level 133 mmol/L Potassium Level 4.1 mmol/L Chloride Level 99 mmol/L Carbon Dioxide Level 29 mmol/L Anion Gap 5.0 mmol/L Blood Urea Nitrogen 5 mg/dl Creatinine 0.33 mg/dl Est Creatinine Clear Calc Drug Dose 256.1 ml/min Estimated GFR () > 150.0 Estimated GFR (Non- 148.8 BUN/Creatinine Ratio 15.1 Random Glucose 154 mg/dl Calcium Level 7.7 mg/dl Magnesium Level 1.8 mg/dl Total Bilirubin 0.4 mg/dl Aspartate Amino Transf (AST/SGOT) 54 U/L Alanine Aminotransferase (ALT/SGPT) 116 U/L Alkaline Phosphatase 234 U/L Total Protein 5.0 gm/dl Albumin 1.4 gm/dl Globulin 3.6 gm/dl Albumin/Globulin Ratio 0.4 (Rosangela Muñoz, FLOYD) Assessment and Plan Mr. Evans is a 51 y/o male with PMHx of T2DM with Peripheral Neuropathy and CVA with L Residual Deficits who is S/P Open Retroperitoneal Mass Bx, Excisional Bx of Soft Tissue of L Lumbar Mass, and A Port in L Jugular. Hospitalist consulted for tachycardia and weakness. Sinus Tachycardia: - EKG reviewed that shows sinus tachy without ischemic changes or other worrisome changes - tachycardia seems likely due to pain at this point - Continue oxycodone - mildly hyponatremic but otherwise electrolytes wnl - CT negative for PE - procalcitonin wnl, UC/ BC no growth - no longer febrile, fever resolved last night on its own - likely due to the lymphoma Hyponatremia - resolving - likely due to dehydration - IVF discontinued last night as patient is up 8L - Na 133 today Elevated LFTs - appears chronic - continues to trend down - INR elevated at 1.9 on admission - given IV vit K 05/25- 1.1 today - possible due to poor po intake? - hepatitis panel negative, SHWETA pending - consult GI - feel this is part of the lymphoma process - monitor outpatient Anemia - serum iron low, ferritin high - likely acute phase reactant Urinary Retention with BPH: - KUB - SBO vs ileus - no nausea or vomiting - no intervention at this time - discontinued minaya - patient voiding - UC showed no growth 05/23 - repeat pending - Continue Flomax 0.4 mg HS T2DM with Peripheral Neuropathy: - bsgs improved with tightened ss, continue bsgs AC& HS - continue Gabapentin 300 mg TID CVA with L Residual Deficits/history of seizure - ASA 81 mg daily; Will defer Plavix 75 mg daily to primary team when they would like to continued - Last seizure 2011 - serum Dilantin a bit low however as seizure history is remote, will leave dose as it is and patient can follow up outpatient - continue Dilantin 300 mg daily and Zoloft 50 mg HS Dispo - inpatient rehab (Rosangela Muñoz ., FLOYD) Attending Attestation - Pt seen/examined, chart reviewed, care plan d/w FLOYD Muñoz. I agree w/ the hickman components of her documentation. Pt w/o complaints today; just mild abd pain. To have bone marrow bx today by Dr. Isabel. Denies any dyspnea or significant cough. +bowel movements. afebrile overnight VSS minimal tachycardia gen - looks better today than yesterday mouth - MMM neck - JVD resolved heart - tachy, s1, s2 lungs - minimal b/l wheeze, minimal rales right base abd - softly distended, BS+, incisional tenderness only ext - no edema neuro - left sided hemiplegia skin - incisions clean on abdominal wall labs - Na 133 LFTs continue downward trend A/P: 1. low-grade fever - resolved w/o antibiotics. Urine cx neg. Blood cx's neg. I am not convinced he has pneumonia; no symptoms of such. Suspect fever 2nd to lymphoma. 2. probable depression - consider antidepressant. 3. vit K def w/ coagulopathy - resolved. 4. abnormal LFTs - GI consult appreciated - thought to be due to lymphoma, but awaiting rest of w/u. LFTs improving daily. 5. hyponatremia - improved. 6. newly dx Hodgkin's lymphoma - bone marrow bx today. 7. severe hypoalbuminemia - due to severe protein calorie malnutrition. Agree with boost supplementation. Pt will third space quickly with the low albumin. Another dose of lasix today due to volume overload state. 8. FEN - BMP acceptable, repeat bmp am. PT, OT both recommending rehab father agrees that he and his likely would not be able to care for him at this time social work aware of need for placement Nicholas Barr MD (Nicholas Barr MD)
[2017-05-28] MEDS: TAMSULOSIN HCL 0.4 MG CAP PO SCH (21:36)
[2017-05-28] MEDS: SERTRALINE HCL 50 MG TAB PO SCH (21:36)
[2017-05-28] MEDS: PHENYTOIN SODIUM ER 100 MG CAP PO SCH (21:36)
[2017-05-28] MEDS: INSULIN GLARGINE SOLOSTAR 100 UNITS/ML 3 ML PEN SC SCH (21:39)
[2017-05-29 03:30] VITALS: BP 126/77; PULSE 109; TEMP 36.9; O2SAT 91
[2017-05-29] MEDS: OXYCODONE/ACETAMINOPHEN 5-325 TAB PO PRN ×3 (07:33→13:43)
[2017-05-29 07:37] VITALS: BP 123/72; PULSE 105; TEMP 37.4; O2SAT 91
[2017-05-29] MEDS: INSULIN ASPART 100 UNITS/ML 3 ML PEN SC SCH ×4 (08:00→20:36)
[2017-05-29 08:18] LABS: BLOOD UREA NITROGEN 6 mg/dl (7-18); CALCIUM 7.9 mg/dl (8.5-10.1); CARBON DIOXIDE 27 mmol/L (21-32); CREATININE 0.42 mg/dl (0.60-1.40); GLUCOSE 145 mg/dl (70-99); POTASSIUM 3.5 mmol/L (3.5-5.1); SODIUM 132 mmol/L (136-145)
[2017-05-29] MEDS: BOOST GLUCOSE CONTROL PO SCH ×2 (08:30→17:45)
[2017-05-29] MEDS: SENNA 8.6 MG TAB PO SCH (09:00)
[2017-05-29] MEDS: TIMOLOL MALEATE 0.25% OP SOLN 5 ML BTL OPR SCH (09:27)
[2017-05-29] MEDS: ASPIRIN 81 MG ECTAB PO SCH (09:27)
[2017-05-29] MEDS: GABAPENTIN 300 MG CAP PO SCH ×3 (09:28→20:31)
[2017-05-29] MEDS: PANTOprazole SOD 40 MG TAB PO SCH (09:28)
[2017-05-29] MEDS: HEPARIN SOD 5000 UNIT/0.5 ML CARP SQ SCH ×2 (09:36→20:37)
--- NOTE | 2017-05-29 11:07 | Hematology/Oncology Prog Note ---
Hematology/Onc Progress Note Date of Service May 29, 2017. Diagnoses Hodgkin's lymphoma Medications Medications Administered Medications (Trade) Dose Ordered Sig/Chris Route Start Time Stop Time Status Last Admin Dose Admin Lactated Ringer's 1,000 ml @ 15 mls/hr Q24H IV 05/22/17 06:00 05/22/17 14:09 DC 05/22/17 08:38 15 MLS/HR Fentanyl Citrate (Fentanyl Inj) 50 mcg Q5M PRN IV 05/22/17 09:00 05/22/17 16:00 DC 05/22/17 14:08 50 MCG Lidocaine HCl (Xylocaine 1% Inj (Local)) 40 ml STK-MED ONCE .ROUTE 05/22/17 09:57 05/22/17 09:58 DC 05/22/17 12:59 20 ML Heparin Sodium (Porcine) (Heparin 100 Unit/ml 5ml Flush) 25 ml STK-MED ONCE .ROUTE 05/22/17 09:57 05/22/17 09:58 DC 05/22/17 12:58 5 ML Bacitracin (Bacitracin Inj) 50,000 units STK-MED ONCE .ROUTE 05/22/17 09:57 05/22/17 09:58 DC 05/22/17 11:07 50,000 UNITS Miscellaneous (Surgicel Absorb Hemostat 2in X 14in) 1 ea ONE ONCE TOP 05/22/17 11:42 05/22/17 11:47 DC 05/22/17 11:47 1 EA Lactated Ringer's 1,000 ml @ 125 mls/hr Q8H IV 05/22/17 15:15 05/23/17 09:47 DC 05/23/17 05:50 75 MLS/HR Morphine Sulfate (MoRPHine SULFATE INJ) 4 mg Q1H PRN IV 05/22/17 13:45 06/05/17 13:44 05/25/17 23:46 4 MG Insulin Aspart (novoLOG ASPART) SLIDING SCALE If C... ACHS SC 05/22/17 16:00 06/21/17 15:59 05/29/17 08:00 6 UNITS Aspirin (Ecotrin Tab) 81 mg QAM PO 05/23/17 09:00 06/22/17 08:59 05/29/17 09:27 81 MG Gabapentin (Neurontin Cap) 300 mg TID PO 05/22/17 21:00 06/21/17 20:59 05/29/17 09:28 300 MG Oxycodone HCl (Roxicodone Immediate Rel Tab) 10 mg Q4H PRN PO 05/22/17 13:45 06/05/17 13:44 05/26/17 05:22 10 MG Pantoprazole Sodium (Protonix Tab) 40 mg QAM PO 05/23/17 09:00 06/22/17 08:59 05/29/17 09:28 40 MG Phenytoin Sodium (Dilantin Er Cap) 300 mg QPM PO 05/22/17 21:00 06/21/17 20:59 05/28/17 21:36 300 MG Sertraline HCl (Zoloft Tab) 50 mg HS PO 05/22/17 21:00 06/21/17 20:59 05/28/17 21:36 50 MG Tamsulosin HCl (Flomax Cap) 0.4 mg HS PO 05/22/17 21:00 06/21/17 20:59 05/28/17 21:36 0.4 MG Timolol Maleate (Timoptic 0.25% Oph Soln) 1 drops QAM OPR 05/23/17 09:00 06/22/17 08:59 05/29/17 09:27 1 DROPS Pneumococcal Polysaccharide Vaccine (Pneumovax-23 Inj) 25 mcg ONCE ONCE IM. 05/22/17 15:15 05/22/17 15:16 DC 05/23/17 00:53 25 MCG Potassium Chloride/Sodium Chloride 1,000 ml @ 75 mls/hr [id number] IV 05/23/17 10:15 05/24/17 09:36 DC 05/24/17 02:24 125 MLS/HR Oxycodone/ Acetaminophen (Percocet 5-325mg Tab) 1 tab Q4H PRN PO 05/23/17 11:00 05/26/17 12:11 DC 05/25/17 13:23 1 TAB Lidocaine HCl (Xylocaine Jelly 2%) 1 APPLICATION PER URETHRA FOR URIN... PRN PRN EXT 05/23/17 15:30 06/22/17 15:29 05/23/17 15:57 1 ML Calcium Carbonate (Tums Chew Tab) 500 mg Q6H PRN PO 05/23/17 18:30 06/22/17 18:29 05/23/17 21:20 500 MG Senna (Senokot Tab) 17.2 mg QAM PO 05/24/17 09:00 06/23/17 08:59 05/27/17 09:21 17.2 MG Senna (Senokot Tab) 17.2 mg 1930 ONCE PO 05/23/17 19:30 05/23/17 19:31 DC 05/23/17 21:18 17.2 MG Polyethylene (Miralax Powder Packet) 17 gm DAILY PRN PO 05/23/17 19:30 06/22/17 19:29 05/25/17 15:37 17 GM Heparin Sodium (Porcine) (Heparin Sq 5000 Unit/0.5ml) 5,000 unit Q12 SQ 05/24/17 12:30 06/23/17 12:29 05/29/17 09:36 5,000 UNIT Sodium Chloride 1,000 ml @ 75 mls/hr [id number] IV 05/24/17 09:45 05/26/17 16:54 DC 05/26/17 13:19 75 MLS/HR Phytonadione 10 mg/Sodium Chloride 51 ml @ 102 mls/hr ONE ONCE IV 05/25/17 16:00 05/25/17 16:29 DC 05/25/17 16:14 102 MLS/HR Insulin Glargine (Lantus Solostar Pen) 10 units HS SC 05/25/17 21:00 06/24/17 20:59 05/28/17 21:39 10 UNITS Oxycodone/ Acetaminophen (Percocet 5-325mg Tab) @ Q4H PRN PO 05/26/17 12:15 06/06/17 10:59 05/29/17 07:33 2 TAB Sodium Chloride 1,000 ml @ 80 mls/hr [id number] IV 05/26/17 22:00 05/27/17 12:46 DC 05/27/17 10:41 80 MLS/HR Furosemide (Lasix Tab) 20 mg NOW STAT PO 05/27/17 13:08 05/27/17 13:09 DC 05/27/17 13:29 20 MG Enteral Nutritional Formula (Boost Glucose Control) 1 can BIDM PO 05/27/17 17:45 06/26/17 17:44 05/29/17 08:30 1 CAN Subjective Seems to be doing fairly well. Echocardiogram is acceptable. Bone marrow results will be available in the next few days. His family tells me that he will be going to rehab. He offers no new complaint Review of Systems: He offers no new complaints Vital Signs Vital Signs Past 12 Hours Date Time Temp Pulse Resp B/P (MAP) Pulse Ox O2 Delivery O2 Flow Rate FiO2 05/29/17 07:37 37.4 105 16 123/72 (89) 91 Room Air 05/29/17 07:28 Room Air 05/29/17 03:30 36.9 109 16 126/77 (93) 91 Room Air 05/28/17 23:45 Room Air Laboratory Last 24 Hours Test 05/28/17 12:01 05/28/17 16:49 05/28/17 20:34 05/29/17 06:59 Bedside Glucose 208 mg/dl 145 mg/dl 166 mg/dl Sodium Level 132 mmol/L Potassium Level 3.5 mmol/L Chloride Level 98 mmol/L Carbon Dioxide Level 27 mmol/L Anion Gap 8.0 mmol/L Blood Urea Nitrogen 6 mg/dl Creatinine 0.42 mg/dl Est Creatinine Clear Calc Drug Dose 201.3 ml/min Estimated GFR () > 150.0 Estimated GFR (Non- 134.8 BUN/Creatinine Ratio 13.4 Random Glucose 145 mg/dl Calcium Level 7.9 mg/dl Test 05/29/17 08:27 Bedside Glucose 151 mg/dl Assessment & Plan At least stage III Hodgkin's lymphoma He is doing well. Echocardiogram results are acceptable for ventral therapy. He will have a follow-up in our clinic to begin therapy early to mid next week. Marrow results should be available by then.
[2017-05-29] MEDS ORDERED: FUROSEMIDE 20 MG TAB PO ONE (15:15)
[2017-05-29 15:30] VITALS: BP 140/76; PULSE 107; TEMP 37.2; O2SAT 94
--- NOTE | 2017-05-29 17:00 | Hospitalist Progress Note ---
Hospitalist Progress Note Date of Service May 29, 2017. (Rosangela Muñoz .FLOYD) Subjective Pt evaluation today including: conversation w/ patient, physical exam, chart review, lab review, review of inpatient medication list Voiding: no voiding problems Mr. Evans is seated in a chair, his abdominal pain is somewhat worse today than yesterday as he states changing positions does make it worse. He otherwise does not have complaints. ROS Constitutional: no chills, aches, sweats or fever Respiratory: no sob,cough, sputum, or wheezing Cardiac: no chest pain, palpitations, edema, orthopnea or lightheadedness GI: see HPI : no dysuria or hesitancy Extremities: no joint pain or weakness Skin: no rash All other systems reviewed and negative (Rosangela Muñoz CRNP) Medications Medications Administered Medications (Trade) Dose Ordered Sig/Chris Route Start Time Stop Time Status Last Admin Dose Admin Lactated Ringer's 1,000 ml @ 15 mls/hr Q24H IV 05/22/17 06:00 05/22/17 14:09 DC 05/22/17 08:38 15 MLS/HR Fentanyl Citrate (Fentanyl Inj) 50 mcg Q5M PRN IV 05/22/17 09:00 05/22/17 16:00 DC 05/22/17 14:08 50 MCG Lidocaine HCl (Xylocaine 1% Inj (Local)) 40 ml STK-MED ONCE .ROUTE 05/22/17 09:57 05/22/17 09:58 DC 05/22/17 12:59 20 ML Heparin Sodium (Porcine) (Heparin 100 Unit/ml 5ml Flush) 25 ml STK-MED ONCE .ROUTE 05/22/17 09:57 05/22/17 09:58 DC 05/22/17 12:58 5 ML Bacitracin (Bacitracin Inj) 50,000 units STK-MED ONCE .ROUTE 05/22/17 09:57 05/22/17 09:58 DC 05/22/17 11:07 50,000 UNITS Miscellaneous (Surgicel Absorb Hemostat 2in X 14in) 1 ea ONE ONCE TOP 05/22/17 11:42 05/22/17 11:47 DC 05/22/17 11:47 1 EA Lactated Ringer's 1,000 ml @ 125 mls/hr Q8H IV 05/22/17 15:15 05/23/17 09:47 DC 05/23/17 05:50 75 MLS/HR Morphine Sulfate (MoRPHine SULFATE INJ) 4 mg Q1H PRN IV 05/22/17 13:45 06/05/17 13:44 05/25/17 23:46 4 MG Insulin Aspart (novoLOG ASPART) SLIDING SCALE If C... ACHS SC 05/22/17 16:00 06/21/17 15:59 05/29/17 12:00 6 UNITS Aspirin (Ecotrin Tab) 81 mg QAM PO 05/23/17 09:00 06/22/17 08:59 05/29/17 09:27 81 MG Gabapentin (Neurontin Cap) 300 mg TID PO 05/22/17 21:00 06/21/17 20:59 05/29/17 13:13 300 MG Oxycodone HCl (Roxicodone Immediate Rel Tab) 10 mg Q4H PRN PO 05/22/17 13:45 06/05/17 13:44 05/26/17 05:22 10 MG Pantoprazole Sodium (Protonix Tab) 40 mg QAM PO 05/23/17 09:00 06/22/17 08:59 05/29/17 09:28 40 MG Phenytoin Sodium (Dilantin Er Cap) 300 mg QPM PO 05/22/17 21:00 06/21/17 20:59 05/28/17 21:36 300 MG Sertraline HCl (Zoloft Tab) 50 mg HS PO 05/22/17 21:00 06/21/17 20:59 05/28/17 21:36 50 MG Tamsulosin HCl (Flomax Cap) 0.4 mg HS PO 05/22/17 21:00 06/21/17 20:59 05/28/17 21:36 0.4 MG Timolol Maleate (Timoptic 0.25% Oph Soln) 1 drops QAM OPR 05/23/17 09:00 06/22/17 08:59 05/29/17 09:27 1 DROPS Pneumococcal Polysaccharide Vaccine (Pneumovax-23 Inj) 25 mcg ONCE ONCE IM. 05/22/17 15:15 05/22/17 15:16 DC 05/23/17 00:53 25 MCG Potassium Chloride/Sodium Chloride 1,000 ml @ 75 mls/hr [id number] IV 05/23/17 10:15 05/24/17 09:36 DC 05/24/17 02:24 125 MLS/HR Oxycodone/ Acetaminophen (Percocet 5-325mg Tab) 1 tab Q4H PRN PO 05/23/17 11:00 05/26/17 12:11 DC 05/25/17 13:23 1 TAB Lidocaine HCl (Xylocaine Jelly 2%) 1 APPLICATION PER URETHRA FOR URIN... PRN PRN EXT 05/23/17 15:30 06/22/17 15:29 05/23/17 15:57 1 ML Calcium Carbonate (Tums Chew Tab) 500 mg Q6H PRN PO 05/23/17 18:30 06/22/17 18:29 05/23/17 21:20 500 MG Senna (Senokot Tab) 17.2 mg QAM PO 05/24/17 09:00 06/23/17 08:59 05/27/17 09:21 17.2 MG Senna (Senokot Tab) 17.2 mg 1930 ONCE PO 05/23/17 19:30 05/23/17 19:31 DC 05/23/17 21:18 17.2 MG Polyethylene (Miralax Powder Packet) 17 gm DAILY PRN PO 05/23/17 19:30 06/22/17 19:29 05/25/17 15:37 17 GM Heparin Sodium (Porcine) (Heparin Sq 5000 Unit/0.5ml) 5,000 unit Q12 SQ 05/24/17 12:30 06/23/17 12:29 05/29/17 09:36 5,000 UNIT Sodium Chloride 1,000 ml @ 75 mls/hr [id number] IV 05/24/17 09:45 05/26/17 16:54 DC 05/26/17 13:19 75 MLS/HR Phytonadione 10 mg/Sodium Chloride 51 ml @ 102 mls/hr ONE ONCE IV 05/25/17 16:00 05/25/17 16:29 DC 05/25/17 16:14 102 MLS/HR Insulin Glargine (Lantus Solostar Pen) 10 units HS SC 05/25/17 21:00 06/24/17 20:59 05/28/17 21:39 10 UNITS Oxycodone/ Acetaminophen (Percocet 5-325mg Tab) @ Q4H PRN PO 05/26/17 12:15 06/06/17 10:59 05/29/17 13:43 1 TAB Sodium Chloride 1,000 ml @ 80 mls/hr [id number] IV 05/26/17 22:00 05/27/17 12:46 DC 05/27/17 10:41 80 MLS/HR Furosemide (Lasix Tab) 20 mg NOW STAT PO 05/27/17 13:08 05/27/17 13:09 DC 05/27/17 13:29 20 MG Enteral Nutritional Formula (Boost Glucose Control) 1 can BIDM PO 05/27/17 17:45 06/26/17 17:44 05/29/17 08:30 1 CAN Furosemide (Lasix Tab) 20 mg NOW ONCE PO 05/29/17 15:15 05/29/17 15:16 DC 05/29/17 15:33 20 MG (Rosangela Muñoz, FLOYD) Objective Vital Signs Date Time Temp Pulse Resp B/P (MAP) Pulse Ox O2 Delivery O2 Flow Rate FiO2 05/29/17 16:07 Room Air 05/29/17 15:30 37.2 107 18 140/76 (97) 94 Room Air 05/29/17 07:37 37.4 105 16 123/72 (89) 91 Room Air 05/29/17 07:28 Room Air 05/29/17 03:30 36.9 109 16 126/77 (93) 91 Room Air 05/28/17 23:45 Room Air 05/28/17 22:48 36.9 105 16 127/77 (94) 95 Room Air 05/28/17 19:56 36.4 05/28/17 19:55 37.6 100 (Rosangela Muñoz CRNP) Physical Exam Notes: General: no distress Eyes: normal inspection, PERLL Respiratory: chest non tender, clear to auscultation, normal breath sounds, no respiratory distress, no accessory muscle use Cardiac: regular rate and rhythm, no rub or gallop, no murmur, no edema, no jvd GI/: active bowel sounds,abdomen tender, soft, distended Extremities: normal range of motion, normal strength, non tender Neuro/Psych: alert and oriented x 3, normal mood and affect Skin: normal color, dry, jasper intact, incisions well approximated, no drainage (Rosangela Muñoz CRNP) Laboratory Results Last 24 Hours Test 05/28/17 16:49 05/28/17 20:34 05/29/17 06:59 05/29/17 08:27 Bedside Glucose 145 mg/dl 166 mg/dl 151 mg/dl Sodium Level 132 mmol/L Potassium Level 3.5 mmol/L Chloride Level 98 mmol/L Carbon Dioxide Level 27 mmol/L Anion Gap 8.0 mmol/L Blood Urea Nitrogen 6 mg/dl Creatinine 0.42 mg/dl Est Creatinine Clear Calc Drug Dose 201.3 ml/min Estimated GFR () > 150.0 Estimated GFR (Non- 134.8 BUN/Creatinine Ratio 13.4 Random Glucose 145 mg/dl Calcium Level 7.9 mg/dl Test 05/29/17 12:06 Bedside Glucose 234 mg/dl (Rosangela Muñoz CRNP) Assessment and Plan Mr. Evans is a 51 y/o male with PMHx of T2DM with Peripheral Neuropathy and CVA with L Residual Deficits who is S/P Open Retroperitoneal Mass Bx, Excisional Bx of Soft Tissue of L Lumbar Mass, and A Port in L Jugular. Hospitalist consulted for tachycardia and weakness. Sinus Tachycardia: - EKG reviewed that shows sinus tachy without ischemic changes or other worrisome changes - tachycardia seems likely due to pain at this point - Continue oxycodone - mildly hyponatremic but otherwise electrolytes wnl - CT negative for PE - procalcitonin wnl, UC/ BC no growth - no longer febrile, fever resolved last night on its own - likely due to the lymphoma Hyponatremia - resolving - likely due to dehydration - IVF discontinued - patient is up 9L - Na 133 today - given 20 mg po lasix Elevated LFTs - appears chronic - continues to trend down - INR elevated at 1.9 on admission - given IV vit K 05/25- now wnl - possible due to poor po intake? - hepatitis panel negative, SHWETA negative - consult GI - feel this is part of the lymphoma process - monitor outpatient Anemia - serum iron low, ferritin high - likely acute phase reactant Urinary Retention with BPH: - KUB - SBO vs ileus - no nausea or vomiting - no intervention at this time - discontinued minaya - patient voiding - UC showed no growth - Continue Flomax 0.4 mg HS T2DM with Peripheral Neuropathy: - bsgs improved with tightened ss, continue bsgs AC& HS - continue Gabapentin 300 mg TID CVA with L Residual Deficits/history of seizure - ASA 81 mg daily; Will defer Plavix 75 mg daily to primary team when they would like to continued - Last seizure 2011 - serum Dilantin a bit low however as seizure history is remote, will leave dose as it is and patient can follow up outpatient - continue Dilantin 300 mg daily and Zoloft 50 mg HS Dispo - inpatient rehab (Rosangela Muñoz ., FLOYD) Attending Attestation - Pt seen/examined, chart reviewed, care plan d/w FLOYD Muñoz. I agree w/ the hickman components of her documentation. Pt sitting in chair during my visit. Eating grilled cheese sandwich. father at bedside. only complaint is that of pain over his incisions apparently was incontinent of stool sometime earlier today afebrile overnight VSS minimal tachycardia gen - looks good, NAD mouth - MMM neck - no JVD heart - tachy, s1, s2 lungs - decreased BS bases, o/w CTA b/l abd - softly distended, BS+, incisional tenderness only ext - no edema neuro - left sided hemiplegia skin - incisions clean on abdominal wall, jasper intact labs - Na 132 CBC stable Cr stable all cultures negative A/P: 1. low-grade fevers - resolved w/o antibiotics. Urine cx neg. Blood cx's neg. I am not convinced he has pneumonia; no symptoms of such. Suspect fever 2nd to lymphoma. 2. probable depression - consider antidepressant, but according to Ms. Muñoz he declined one when they had a discussion about it. 3. vit K def w/ coagulopathy - resolved. 4. abnormal LFTs - GI consult appreciated - thought to be due to lymphoma; check LFTs every 2-3 days for stability. 5. hyponatremia - mild - stable, daily BMP. 6. newly dx Hodgkin's lymphoma - bone marrow bx results pending; will need outpatient placement of a port with subsequent chemo. 7. severe hypoalbuminemia - due to severe protein calorie malnutrition. Agree with boost supplementation. Pt will third space quickly with the low albumin. Another dose of lasix today due to volume overload state. 8. FEN - BMP acceptable; eating is improved. 9. tachycardia - extensive w/u negative --- echo wnl as well. Part of a SIRS response to his lymphoma ?? PT, OT both recommending rehab - referral made to [facility], awaiting determination father updated at bedside today Nicholas Barr MD (Nicholas Barr MD)
[2017-05-29] MEDS: PHENYTOIN SODIUM ER 100 MG CAP PO SCH (20:31)
[2017-05-29] MEDS: TAMSULOSIN HCL 0.4 MG CAP PO SCH (20:31)
[2017-05-29] MEDS: SERTRALINE HCL 50 MG TAB PO SCH (20:31)
[2017-05-29] MEDS: INSULIN GLARGINE SOLOSTAR 100 UNITS/ML 3 ML PEN SC SCH (20:37)
[2017-05-29 23:33] VITALS: BP 116/72; PULSE 112; TEMP 36.8; O2SAT 93
[2017-05-30] MEDS: OXYCODONE/ACETAMINOPHEN 5-325 TAB PO PRN ×2 (04:19→18:30)
[2017-05-30 06:49] LABS: HEMATOCRIT 30.7 % (42-52); MEAN CELL VOLUME 81.4 fL (80-100); MEAN CORPUSCULAR HEMOGLOBIN 26.5 pg (25-34); MEAN CORPUSCULAR HGB CONC 32.6 g/dl (32-36); MEAN PLATELET VOLUME 9.1 fL (7.4-10.4); PLATELET COUNT 251 K/uL (130-400); RED CELL DISTRIBUTION WIDTH CV 15.3 % (11.5-14.5); WHITE BLOOD COUNT 5.07 K/uL (4.8-10.8)
[2017-05-30] MEDS: INSULIN ASPART 100 UNITS/ML 3 ML PEN SC SCH ×4 (08:00→21:00)
[2017-05-30 08:03] VITALS: BP 124/74; PULSE 112; TEMP 37.1; O2SAT 93
--- NOTE | 2017-05-30 08:03 | Surgery Progress Note ---
Surgery Progress Note Date of Service May 30, 2017. Subjective tolerating diet, passing flatus- no complaints this am Objective Vital Signs: Date Time Temp Pulse Resp B/P (MAP) Pulse Ox O2 Delivery O2 Flow Rate FiO2 05/30/17 07:07 Room Air 2.0 05/29/17 23:35 Room Air 05/29/17 23:33 36.8 112 17 116/72 (87) 93 Room Air 05/29/17 16:07 Room Air 05/29/17 15:30 37.2 107 18 140/76 (97) 94 Room Air General Appearance: no apparent distress Respiratory/Chest: no respiratory distress Abdomen: soft (mild distention) Incision(s): intact Laboratory Results: Results Past 24 Hours Test 05/29/17 08:27 05/29/17 12:06 05/29/17 17:17 05/29/17 20:13 Range/Units Bedside Glucose 151 234 116 216 70-99 mg/dl Test 05/30/17 06:12 Range/Units White Blood Count 5.07 4.8-10.8 K/uL Red Blood Count 3.77 4.7-6.1 M/uL Hemoglobin 10.0 14.0-18.0 g/dL Hematocrit 30.7 42-52 % Mean Corpuscular Volume 81.4 80-100 fL Mean Corpuscular Hemoglobin 26.5 25-34 pg Mean Corpuscular Hemoglobin Concent 32.6 32-36 g/dl RDW Standard Deviation 45.0 36.4-46.3 fL RDW Coefficient of Variation 15.3 11.5-14.5 % Platelet Count 251 130-400 K/uL Mean Platelet Volume 9.1 7.4-10.4 fL Assessment & Plan 05/30/17- overall positive slow progress awaiting possible transfer to [facility] f/u in surgical office
[2017-05-30] MEDS: BOOST GLUCOSE CONTROL PO SCH ×2 (08:30→17:45)
[2017-05-30] MEDS: SENNA 8.6 MG TAB PO SCH (09:00)
[2017-05-30] MEDS: HEPARIN SOD 5000 UNIT/0.5 ML CARP SQ SCH ×2 (09:00→21:00)
[2017-05-30] MEDS: TIMOLOL MALEATE 0.25% OP SOLN 5 ML BTL OPR SCH (09:31)
[2017-05-30] MEDS: PANTOprazole SOD 40 MG TAB PO SCH (09:31)
[2017-05-30] MEDS: ASPIRIN 81 MG ECTAB PO SCH (09:31)
[2017-05-30] MEDS: GABAPENTIN 300 MG CAP PO SCH ×3 (09:31→21:00)
[2017-05-30 11:00] VITALS: O2SAT 93
--- NOTE | 2017-05-30 14:46 | Hospitalist Progress Note ---
Hospitalist Progress Note Date of Service May 30, 2017. (Sweetie Cordero ., DIANA) Subjective Pt evaluation today including: conversation w/ patient, physical exam, lab review, review of studies, review of inpatient medication list Voiding: no voiding problems Patient sitting in bedside chair eating lunch. Flat affect. Limited conversation. States eating and drinking OK. Mild abdominal pain around incision sites. Controlled w/ PRN medication. Patient denies any fever, chills, sweats, lightheadedness, dizziness, vision changes, CP, palpitations, edema, SOB, wheezing, cough, nausea, vomiting, diarrhea, urinary symptoms, melena, numbness/tingling, weakness, muscle/joint pain, anxiety/depression, active bleeding, or new skin discoloration/changes. (Sweetie Cordero, MIKEC) Medications Current Inpatient Medications Medications (Trade) Dose Ordered Sig/Chris Route Start Time Stop Time Status Last Admin Dose Admin Ondansetron HCl (Zofran Inj) 4 mg Q4H PRN IV 05/22/17 13:45 06/21/17 13:44 Morphine Sulfate (MoRPHine SULFATE INJ) 4 mg Q1H PRN IV 05/22/17 13:45 06/05/17 13:44 05/25/17 23:46 4 MG Insulin Aspart (novoLOG ASPART) SLIDING SCALE If C... ACHS SC 05/22/17 16:00 06/21/17 15:59 05/30/17 12:00 6 UNITS Glucose (Glucose 40% Gel) 15-30 GRAMS 15 GRAMS... UD PRN PO 05/22/17 13:45 06/21/17 13:44 Glucose (Glucose Chew Tab) 4-8 Tablets 4 Tabl... UD PRN PO 05/22/17 13:45 06/21/17 13:44 Dextrose (Dextrose 50% 50ML Syringe) 25-50ML OF 50% DW IV FOR... UD PRN IV 05/22/17 13:45 06/21/17 13:44 Glucagon (Glucagon Inj) 1 mg UD PRN SQ 05/22/17 13:45 06/21/17 13:44 Aspirin (Ecotrin Tab) 81 mg QAM PO 05/23/17 09:00 06/22/17 08:59 05/30/17 09:31 81 MG Gabapentin (Neurontin Cap) 300 mg TID PO 05/22/17 21:00 06/21/17 20:59 05/30/17 13:31 300 MG Oxycodone HCl (Roxicodone Immediate Rel Tab) 10 mg Q4H PRN PO 05/22/17 13:45 06/05/17 13:44 05/26/17 05:22 10 MG Pantoprazole Sodium (Protonix Tab) 40 mg QAM PO 05/23/17 09:00 06/22/17 08:59 05/30/17 09:31 40 MG Phenytoin Sodium (Dilantin Er Cap) 300 mg QPM PO 05/22/17 21:00 06/21/17 20:59 05/29/17 20:31 300 MG Sertraline HCl (Zoloft Tab) 50 mg HS PO 05/22/17 21:00 06/21/17 20:59 05/29/17 20:31 50 MG Tamsulosin HCl (Flomax Cap) 0.4 mg HS PO 05/22/17 21:00 06/21/17 20:59 05/29/17 20:31 0.4 MG Timolol Maleate (Timoptic 0.25% Oph Soln) 1 drops QAM OPR 05/23/17 09:00 06/22/17 08:59 05/30/17 09:31 1 DROPS Miscellaneous (Iv Fluids Completed) 1 ea PRN PRN N/A 05/22/17 15:15 05/22/18 15:14 Lidocaine HCl (Xylocaine Jelly 2%) 1 APPLICATION PER URETHRA FOR URIN... PRN PRN EXT 05/23/17 15:30 06/22/17 15:29 05/23/17 15:57 1 ML Al Hydrox/Mg Hydrox/Simethicone (Maalox Max Susp) 15 ml Q4H PRN PO 05/23/17 18:30 06/22/17 18:29 Calcium Carbonate (Tums Chew Tab) 500 mg Q6H PRN PO 05/23/17 18:30 06/22/17 18:29 05/23/17 21:20 500 MG Senna (Senokot Tab) 17.2 mg QAM PO 05/24/17 09:00 06/23/17 08:59 05/27/17 09:21 17.2 MG Bisacodyl (Dulcolax Supp) 10 mg DAILY PRN [place] 05/23/17 19:30 06/22/17 19:29 Polyethylene (Miralax Powder Packet) 17 gm DAILY PRN PO 05/23/17 19:30 06/22/17 19:29 05/25/17 15:37 17 GM Heparin Sodium (Porcine) (Heparin Sq 5000 Unit/0.5ml) 5,000 unit Q12 SQ 05/24/17 12:30 06/23/17 12:29 05/30/17 09:00 5,000 UNIT Insulin Glargine (Lantus Solostar Pen) 10 units HS SC 05/25/17 21:00 06/24/17 20:59 05/29/17 20:37 10 UNITS Oxycodone/ Acetaminophen (Percocet 5-325mg Tab) @ Q4H PRN PO 05/26/17 12:15 06/06/17 10:59 05/30/17 04:19 1 TAB Enteral Nutritional Formula (Boost Glucose Control) 1 can BIDM PO 05/27/17 17:45 06/26/17 17:44 05/30/17 08:30 1 CAN (Sweetie Cordero, PA-C) Objective Vital Signs Date Time Temp Pulse Resp B/P (MAP) Pulse Ox O2 Delivery O2 Flow Rate FiO2 05/30/17 11:00 93 Room Air 05/30/17 08:03 37.1 112 24 124/74 (91) 93 Room Air 05/30/17 07:07 Room Air 2.0 05/29/17 23:35 Room Air 05/29/17 23:33 36.8 112 17 116/72 (87) 93 Room Air 05/29/17 16:07 Room Air 05/29/17 15:30 37.2 107 18 140/76 (97) 94 Room Air (Sweetie Cordero, PA-C) Physical Exam General Appearance: no apparent distress Eyes: normal inspection, PERRL ENT: hearing grossly normal Neck: supple Respiratory/Chest: lungs clear, no respiratory distress, no accessory muscle use Cardiovascular: + tachycardia (regular rhythm ) Abdomen: normal bowel sounds, soft, + tenderness (mild, around incision sites) , + pertinent finding (incision sites C/D/I) Extremities: no pedal edema, no calf tenderness Neurologic/Psychiatric: alert, oriented x 3, + pertinent finding (flat affect ) Skin: normal color, warm/dry, no rash (Sweetie Cordero ., PA-C) Laboratory Results Last 24 Hours Test 05/29/17 17:17 05/29/17 20:13 05/30/17 06:12 05/30/17 08:24 Bedside Glucose 116 mg/dl 216 mg/dl 145 mg/dl White Blood Count 5.07 K/uL Red Blood Count 3.77 M/uL Hemoglobin 10.0 g/dL Hematocrit 30.7 % Mean Corpuscular Volume 81.4 fL Mean Corpuscular Hemoglobin 26.5 pg Mean Corpuscular Hemoglobin Concent 32.6 g/dl RDW Standard Deviation 45.0 fL RDW Coefficient of Variation 15.3 % Platelet Count 251 K/uL Mean Platelet Volume 9.1 fL Test 05/30/17 12:17 Bedside Glucose 191 mg/dl (Sweetie Cordero, NATASHA-C) Assessment and Plan Mr. Evans is a 51 y/o male with PMHx of T2DM with Peripheral Neuropathy and CVA with L residual deficits who is s/p Open Retroperitoneal Mass Bx, Excisional Bx of Soft Tissue of L Lumbar Mass, and A Port in L Jugular. Hospitalist consulted for tachycardia and weakness. Newly diagnosed Hodgkin's lymphoma: - s/p retroperitoneal biopsy on 05/[address] Bradshaw- biopsy w/ Hodgkin lymphoma - s/p bone biopsy on 05/[address] Isabel- pathology w/out lymphoma - ECHO obtained in preparation for chemotherapy - Hematology/oncology consulted- f/u outpatient to begin chemotherapy Sinus tachycardia, likely secondary to pain vs dehydration vs lymphoma- STABLE: - EKG reviewed that shows sinus tachy with/out ischemic changes or other worrisome changes - Continue Oxycodone PRN for pain management - CTA negative for PE - ECHO- preserved EF, grade I diastolic dysfunction - Fevers- RESOLVED- no s/s of infection- procalcitonin WNL, UCx negative x2, BCx negative Hyponatremia, likely due to dehydration- RESOLVING: Treated w/ IVF Volume overload secondary to IVF and low albumin: Treated w/ Lasix PRN Elevated LFTs, ?secondary to lymphoma- IMPROVING: - Hepatitis negative; SHWETA negative - Liver US- unremarkable - GI consulted, appreciate recommendations- likely secondary to lymphoma process - continue to monitor outpatient Vitamin K deficiency w/ coagulopathy- RESOLVED: Treated w/ IV Vitamin K Severe hypoalbuminemia due to severe protein calorie malnutrition: Boost BID Anemia, likely acute phase reactant: - Serum iron low, ferritin high - Follow H&H- STABLE Urinary retention w/ BPH- RESOLVED: Continue Flomax 0.4 mg HS T2DM w/ peripheral neuropathy- hgbA1c 6.6% in 04/2017: - Outpatient regimen of Metformin held - Lantus 10 u HS - BSG ACHS and ISS - Continue Gabapentin 300 mg TID CVA with L residual deficits, h/o seizure: - ASA 81 mg daily; defer Plavix 75 mg daily to primary team when they would like to continued - Continue Dilantin 300 mg daily and Zoloft 50 mg HS GERD: Protonix daily DVT prophylaxis: Heparin SQ BID Code status: LEVEL I, FULL Dispo: Stable for discharge pending placement- hoping for [facility]- PT/OT and CM following (Sweetie Cordero, DIANA) Reviewed: Pt Seen/Exam by Me (Theresa Swain MD) History Physician Bromination Equipment Operator Supervision Note: I interviewed and examined the patient. Discussed with NATASHA Cordero and agree with findings and plan as documented in the note. Any exceptions or clarifications are listed here: Patient had another borderline fever this afternoon. He denies cough, he is not really using his incentive spirometer much. He was out of bed to chair earlier today. Has some incisional site pain, but otherwise no abdominal pain. Denies diarrhea. Denies urinary symptoms. Denies headache, shortness of breath, chest pain. Vitals reviewed Very flat affect, NAD, alert awake and oriented Regular rhythm with mild tachycardia, no MGR Lungs clear to auscultation bilaterally Abdomen +bowel sounds, soft but mildly distended, positive minimal TTP around incision sites without guarding or rebound tenderness, jasper intact, no surrounding erythema or drainage from wounds; left anterior chest wall with A- port in place, steri strips in place, no erythema, no drainage, no tenderness Extremities no edema Patient is a 51-year-old male with a history of seizure disorder, DM 2, diabetic peripheral neuropathy, history of CVA with left-sided residual deficits , here with diffuse bulky lymphadenopathy now status post open retroperitoneal mass biopsy and excisional biopsy of soft tissue left lumbar mass as well as a- port placement. Hospitalist service consulted for persistent tachycardia and weakness. Also with hyponatremia Found to have Hodgkin's lymphoma on biopsies, bone marrow negative. With fever again today, no evidence of infection on exam or by history. Could be secondary to lymphoma, atelectasis, UTI. Does have A-port in place as well but not accessed. -check BCxs, UA and Ur cx if indicated now -encouraged IS, asked RN to get pt OOB to chair again for mobilization -wounds all look good, no signs of infection, no evidence on exam or by history of DVT/PE -follow cultures, but most likely fevers and sinus tach all secondary to lymphoma -awaiting discharge Documented By: Theresa Swain Documented By: Theresa Swain (Theresa Swain MD)
[2017-05-30 15:11] VITALS: BP 136/83; PULSE 112; TEMP 38; O2SAT 96
[2017-05-30] MEDS: TAMSULOSIN HCL 0.4 MG CAP PO SCH (21:00)
[2017-05-30] MEDS: PHENYTOIN SODIUM ER 100 MG CAP PO SCH (21:00)
[2017-05-30] MEDS ORDERED: INSULIN GLARGINE SOLOSTAR 100 UNITS/ML 3 ML PEN SC SCH (21:00)
[2017-05-30] MEDS: SERTRALINE HCL 50 MG TAB PO SCH (21:00)
[2017-05-30 21:30] VITALS: TEMP 36.6
[2017-05-30 23:20] VITALS: BP 136/83; PULSE 105; TEMP 36.4; O2SAT 96
[2017-05-31] MEDS: OXYCODONE/ACETAMINOPHEN 5-325 TAB PO PRN ×2 (01:53→07:50)
[2017-05-31] MEDS: INSULIN ASPART 100 UNITS/ML 3 ML PEN SC SCH ×2 (08:00→13:28)
[2017-05-31 08:08] VITALS: BP 138/78; PULSE 104; TEMP 36.9; O2SAT 94
[2017-05-31] MEDS: BOOST GLUCOSE CONTROL PO SCH (08:30)
[2017-05-31 08:58] LABS: ALBUMIN 1.5 gm/dl (3.4-5.0); ALT/SGPT 97 U/L (12-78); AST/SGOT 102 U/L (15-37); BLOOD UREA NITROGEN 6 mg/dl (7-18); CALCIUM 7.9 mg/dl (8.5-10.1); CARBON DIOXIDE 27 mmol/L (21-32); CREATININE 0.25 mg/dl (0.60-1.40); GLUCOSE 129 mg/dl (70-99); POTASSIUM 3.4 mmol/L (3.5-5.1); SODIUM 131 mmol/L (136-145)
[2017-05-31] MEDS: HEPARIN SOD 5000 UNIT/0.5 ML CARP SQ SCH (09:00)
[2017-05-31] MEDS ORDERED: CLOPIDOGREL BISULFATE 75 MG TAB PO SCH (09:00)
[2017-05-31] MEDS: SENNA 8.6 MG TAB PO SCH (09:00)
[2017-05-31 09:01] LABS: ALKALINE PHOSPHATASE 227 U/L (45-117); TOTAL PROTEIN 5.3 gm/dl (6.4-8.2)
[2017-05-31] MEDS ORDERED: POTASSIUM CHLORIDE 20 MEQ TABCR PO ONE (09:15)
[2017-05-31] MEDS: ASPIRIN 81 MG ECTAB PO SCH (09:34)
[2017-05-31] MEDS: TIMOLOL MALEATE 0.25% OP SOLN 5 ML BTL OPR SCH (09:34)
[2017-05-31] MEDS: PANTOprazole SOD 40 MG TAB PO SCH (09:35)
[2017-05-31] MEDS: GABAPENTIN 300 MG CAP PO SCH ×2 (09:35→13:28)
--- NOTE | 2017-05-31 10:44 | Hematology/Oncology Prog Note ---
Hematology/Onc Progress Note Date of Service May 31, 2017. Diagnoses Hodgkin's lymphoma Medications Medications Administered Medications (Trade) Dose Ordered Sig/Chris Route Start Time Stop Time Status Last Admin Dose Admin Lactated Ringer's 1,000 ml @ 15 mls/hr Q24H IV 05/22/17 06:00 05/22/17 14:09 DC 05/22/17 08:38 15 MLS/HR Fentanyl Citrate (Fentanyl Inj) 50 mcg Q5M PRN IV 05/22/17 09:00 05/22/17 16:00 DC 05/22/17 14:08 50 MCG Lidocaine HCl (Xylocaine 1% Inj (Local)) 40 ml STK-MED ONCE .ROUTE 05/22/17 09:57 05/22/17 09:58 DC 05/22/17 12:59 20 ML Heparin Sodium (Porcine) (Heparin 100 Unit/ml 5ml Flush) 25 ml STK-MED ONCE .ROUTE 05/22/17 09:57 05/22/17 09:58 DC 05/22/17 12:58 5 ML Bacitracin (Bacitracin Inj) 50,000 units STK-MED ONCE .ROUTE 05/22/17 09:57 05/22/17 09:58 DC 05/22/17 11:07 50,000 UNITS Miscellaneous (Surgicel Absorb Hemostat 2in X 14in) 1 ea ONE ONCE TOP 05/22/17 11:42 05/22/17 11:47 DC 05/22/17 11:47 1 EA Lactated Ringer's 1,000 ml @ 125 mls/hr Q8H IV 05/22/17 15:15 05/23/17 09:47 DC 05/23/17 05:50 75 MLS/HR Morphine Sulfate (MoRPHine SULFATE INJ) 4 mg Q1H PRN IV 05/22/17 13:45 06/05/17 13:44 05/25/17 23:46 4 MG Insulin Aspart (novoLOG ASPART) SLIDING SCALE If C... ACHS SC 05/22/17 16:00 06/21/17 15:59 05/31/17 08:00 6 UNITS Aspirin (Ecotrin Tab) 81 mg QAM PO 05/23/17 09:00 06/22/17 08:59 05/31/17 09:34 81 MG Gabapentin (Neurontin Cap) 300 mg TID PO 05/22/17 21:00 06/21/17 20:59 05/31/17 09:35 300 MG Oxycodone HCl (Roxicodone Immediate Rel Tab) 10 mg Q4H PRN PO 05/22/17 13:45 06/05/17 13:44 05/26/17 05:22 10 MG Pantoprazole Sodium (Protonix Tab) 40 mg QAM PO 05/23/17 09:00 06/22/17 08:59 05/31/17 09:35 40 MG Phenytoin Sodium (Dilantin Er Cap) 300 mg QPM PO 05/22/17 21:00 06/21/17 20:59 05/29/17 20:31 300 MG Sertraline HCl (Zoloft Tab) 50 mg HS PO 05/22/17 21:00 06/21/17 20:59 05/29/17 20:31 50 MG Tamsulosin HCl (Flomax Cap) 0.4 mg HS PO 05/22/17 21:00 06/21/17 20:59 05/29/17 20:31 0.4 MG Timolol Maleate (Timoptic 0.25% Oph Soln) 1 drops QAM OPR 05/23/17 09:00 06/22/17 08:59 05/31/17 09:34 1 DROPS Pneumococcal Polysaccharide Vaccine (Pneumovax-23 Inj) 25 mcg ONCE ONCE IM. 05/22/17 15:15 05/22/17 15:16 DC 05/23/17 00:53 25 MCG Potassium Chloride/Sodium Chloride 1,000 ml @ 75 mls/hr [id number] IV 05/23/17 10:15 05/24/17 09:36 DC 05/24/17 02:24 125 MLS/HR Oxycodone/ Acetaminophen (Percocet 5-325mg Tab) 1 tab Q4H PRN PO 05/23/17 11:00 05/26/17 12:11 DC 05/25/17 13:23 1 TAB Lidocaine HCl (Xylocaine Jelly 2%) 1 APPLICATION PER URETHRA FOR URIN... PRN PRN EXT 05/23/17 15:30 06/22/17 15:29 05/23/17 15:57 1 ML Calcium Carbonate (Tums Chew Tab) 500 mg Q6H PRN PO 05/23/17 18:30 06/22/17 18:29 05/23/17 21:20 500 MG Senna (Senokot Tab) 17.2 mg QAM PO 05/24/17 09:00 06/23/17 08:59 05/27/17 09:21 17.2 MG Senna (Senokot Tab) 17.2 mg 1930 ONCE PO 05/23/17 19:30 05/23/17 19:31 DC 05/23/17 21:18 17.2 MG Polyethylene (Miralax Powder Packet) 17 gm DAILY PRN PO 05/23/17 19:30 06/22/17 19:29 05/25/17 15:37 17 GM Heparin Sodium (Porcine) (Heparin Sq 5000 Unit/0.5ml) 5,000 unit Q12 SQ 05/24/17 12:30 06/23/17 12:29 05/31/17 09:00 5,000 UNIT Sodium Chloride 1,000 ml @ 75 mls/hr [id number] IV 05/24/17 09:45 05/26/17 16:54 DC 05/26/17 13:19 75 MLS/HR Phytonadione 10 mg/Sodium Chloride 51 ml @ 102 mls/hr ONE ONCE IV 05/25/17 16:00 05/25/17 16:29 DC 05/25/17 16:14 102 MLS/HR Insulin Glargine (Lantus Solostar Pen) 10 units HS SC 05/25/17 21:00 05/30/17 16:31 DC 05/29/17 20:37 10 UNITS Oxycodone/ Acetaminophen (Percocet 5-325mg Tab) @ Q4H PRN PO 05/26/17 12:15 06/06/17 10:59 05/31/17 07:50 1 TAB Sodium Chloride 1,000 ml @ 80 mls/hr [id number] IV 05/26/17 22:00 05/27/17 12:46 DC 05/27/17 10:41 80 MLS/HR Furosemide (Lasix Tab) 20 mg NOW STAT PO 05/27/17 13:08 05/27/17 13:09 DC 05/27/17 13:29 20 MG Enteral Nutritional Formula (Boost Glucose Control) 1 can BIDM PO 05/27/17 17:45 06/26/17 17:44 05/31/17 08:30 1 CAN Furosemide (Lasix Tab) 20 mg NOW ONCE PO 05/29/17 15:15 05/29/17 15:16 DC 05/29/17 15:33 20 MG Clopidogrel Bisulfate (plAVix TAB) 75 mg QAM PO 05/31/17 09:00 06/30/17 08:59 05/31/17 09:35 75 MG Potassium Chloride (Klor-Con Tab) 20 meq ONE ONCE PO 05/31/17 09:15 05/31/17 09:17 DC 05/31/17 09:15 20 MEQ Subjective He states he feels somewhat better. He states the abdominal pain is better now than before. Review of Systems: Constitutional: Negative for night sweats, or fever Eyes: Negative for event change of vision ENT: Negative for epistaxis, nasal discharge, sore throat, or deafness Cardiovascular: Negative for chest pain, palpitations, dizziness, diaphoresis Respiratory: Negative for new shortness of breath,hemoptysis, or purulent cough Gastrointestinal: Negative for diarrhea, hematemesis, melena, nausea, vomiting , or dyspepsia Integumentary (skin): Negative for rash or jaundice discoloration Neurological: History of CVA Lymphatic/Hematologic: Negative for petechiae, bleeding or new adenopathy Musculoskeletal: Negative for new joint or back pain Allergic/Immunologic: Negative for unusual rash or pruritis. Vital Signs Vital Signs Past 12 Hours Date Time Temp Pulse Resp B/P (MAP) Pulse Ox O2 Delivery O2 Flow Rate FiO2 05/31/17 08:08 36.9 104 18 138/78 (98) 94 Room Air 05/31/17 07:40 Room Air 05/30/17 23:42 Room Air 05/30/17 23:20 36.4 105 16 136/83 (100) 96 Room Air Physical Exam Constitutional: vitals are stable. Eyes: Eyes are PAIGE EOMI without conjuctival erythema or icterus. ENT: External examination was negative for masses. Neck: Negative for masses or palpable thyromegaly Respiratory: Lung sounds were generally clear bilaterally Cardiovascular: Heart was RRR without significant murmur, gallops aoe rubs Gastrointestinal: No palpable hepatic or splenomegaly. The abdomen was distended. Incision appears well-healed jasper remain in place Lymphatic system: there was no palpable peripheral lymphadenopathy Musculoskeletal System: The musculoskeletal system seemed concordant with age. Skin: The skin was negative for jaundice. Neurologic exam: History of CVA without further neurologic deficit Extremities: Negative for edema Laboratory Last 24 Hours Test 05/30/17 12:17 05/30/17 16:48 05/30/17 18:45 05/30/17 20:45 Bedside Glucose 191 mg/dl 147 mg/dl 201 mg/dl Urine Color YELLOW Urine Appearance CLEAR Urine pH 6.0 Urine Specific [place] 1.025 Urine Protein 1+ Urine Glucose (UA) TRACE Urine Ketones TRACE Urine Occult Blood TRACE Urine Nitrite NEG Urine Bilirubin NEG Urine Urobilinogen POS Urine Leukocyte Esterase NEG Urine RBC 0-4 /hpf Urine WBC 0 /hpf Urine Epithelial Cells 5-10 /lpf Urine Calcium Oxalate Crystals PRESENT Urine Amorphous Sediment PRESENT Urine Bacteria NEG Urine Mucus PRESENT Test 05/31/17 07:48 05/31/17 08:15 Bedside Glucose 114 mg/dl Sodium Level 131 mmol/L Potassium Level 3.4 mmol/L Chloride Level 98 mmol/L Carbon Dioxide Level 27 mmol/L Anion Gap 6.0 mmol/L Blood Urea Nitrogen 6 mg/dl Creatinine 0.25 mg/dl Est Creatinine Clear Calc Drug Dose 338.2 ml/min Estimated GFR () > 150.0 Estimated GFR (Non- > 150.0 BUN/Creatinine Ratio 24.5 Random Glucose 129 mg/dl Calcium Level 7.9 mg/dl Total Bilirubin 0.5 mg/dl Direct Bilirubin 0.3 mg/dl Aspartate Amino Transf (AST/SGOT) 102 U/L Alanine Aminotransferase (ALT/SGPT) 97 U/L Alkaline Phosphatase 227 U/L Total Protein 5.3 gm/dl Albumin 1.5 gm/dl Globulin 3.8 gm/dl Albumin/Globulin Ratio 0.4 Assessment & Plan At least stage III Hodgkin's lymphoma Bone marrow biopsy has been recorded as negative. We will sign off for now. He does have a follow-up in our clinic next week to begin systemic therapy. Viral hepatitis studies will be ordered in preparation for that beginning. Please not hesitate to reconsult if needed.
[2017-05-31 12:22] LABS: HEP C IGG 13 YRS+OLDER_RFLX NEG (NEG)
[2017-05-31 15:13] VITALS: BP 127/76; PULSE 103; TEMP 37.9; O2SAT 96
--- NOTE | 2017-05-31 15:36 | Discharge Instructions ---
Discharge Instructions Date of Service May 31, 2017. Admission Reason for Admission: Retroperitoneal Mass, Neoplasm Of Uncertain Discharge Discharge Diagnosis / Problem: Hodgkin's lymphoma Discharge Goals Goal(s): Decrease discomfort, Improve function, Increase independence, Improve disease control, Improve nutritional status, Learn about illness, Diagnostic testing, Therapeutic intervention, Prevent Disease Progression Activity Recommendations Activity Limitations: per Instructions/Follow-up section (limitations as per general surgery instructions ) . Instructions / Follow-Up Instructions / Follow-Up You were admitted to [facility] for a retroperitoneal biopsy- biopsy positive for Hodgkin's lymphoma. A bone biopsy was completed and unremarkable. You may take Oxycodone every 4 hours as needed for pain management Resume all other regular home as prescribed FOLLOW-UPS: Please follow-up with your PCP within 5-7 days Please follow-up with General surgery as instructed by Dr. Bradshaw Follow-up with Hematology/Oncology as instructed by Dr. Isabel Please follow-up/keep all of your subspecialty appointments Current Hospital Diet Patient's current hospital diet: Diabetes Type 2 Diet Discharge Diet Recommended Diet: Diabetes Type 2 Diet Procedures Procedures Performed: Laparoscopic attempted Biopsy of Retroperitoneal Mass convert to Open; A-Port Placement Left Jugular; Excisional Biopsy of 2cm soft tissue mass Lef tLumbar Mass Pending Studies Studies pending at discharge: no Laboratory Results Hemoglobin A1c Test 04/25/17 14:00 Range/Units Estimated Average Glucose 143 mg/dl Hemoglobin A1c 6.6 H 4.5-5.6 % Lipid Panel Test 03/14/17 08:30 Range/Units Triglycerides Level 168 H 0-150 mg/dl Cholesterol Level 202 H 0-200 mg/dl HDL Cholesterol 40 mg/dl LDL Cholesterol Direct 146 mg/dl Cholesterol/HDL Ratio 5.1 LDL Cholesterol, Calculated mg/dl Medical Emergencies . Who to Call and When: Medical Emergencies: If at any time you feel your situation is an emergency, please call 911 immediately. . Non-Emergent Contact Non-Emergency issues call your: Primary Care Provider, Surgeon, Specialist Call Non-Emergent contact if: you have a fever, your pain is not controlled, your pain is worsening, your pain is unusual for you, your pain is concerning you, wound has increased drainage, wound has increased redness, wound has increased pain, you have any medication questions . . "Provider Documentation" section prepared by Sweetie Cordero. .
[2017-05-31] MEDS ORDERED: NUTR-7 PO (15:43)
--- NOTE | 2017-05-31 15:47 | Discharge Summary ---
Discharge Summary Date of Service May 31, 2017. Discharge Summary Admission Date: May 25, 2017 at 10:32 Discharge Date: May 31, 2017 Discharge Disposition: Home Principal Diagnosis: Hodgkin's lymphoma Problems/Secondary Diagnoses: Sinus tachycardia grade I diastolic dysfunction fevers Hyponatremia Hypokalemia Volume overload secondary to IVF and low albumin Elevated LFTs, ?secondary to lymphoma Vitamin K deficiency w/ coagulopathy Severe hypoalbuminemia due to severe protein calorie malnutrition Anemia, likely acute phase reactant Urinary retention w/ BPH T2DM w/ peripheral neuropathy- hgbA1c 6.6% in 04/2017 CVA with L residual deficits h/o seizure GERD Immunizations: Have You Had Influenza Vaccine: No History of Tetanus Vaccine?: Unknown History of Pneumococcal: No History of Hepatitis B Vaccine: No Procedures: CHEST ONE VIEW PORTABLE CLINICAL HISTORY: 51 years-old Male presenting with port placement. TECHNIQUE: Portable upright AP view of the chest was obtained. COMPARISON: 08/15/2016. FINDINGS: Left subclavian Mediport terminates in the right atrium. Cardiac silhouette top normal in size. Mildly low lung volumes with hypoventilatory changes. Bandlike opacity in the right mid lung likely atelectasis. No large pleural effusion or pneumothorax. A loose body may be present in the right glenohumeral joint. Upper abdomen normal. IMPRESSION: 1. Status post left subclavian Mediport placement, which is appropriately positioned. No pneumothorax. 2. Mildly low lung volumes with hypoventilatory changes and atelectasis. Electronically signed by: [place] M.D. 05/22/2017 2:26 PM Dictated Date/Time: 05/22/2017 2:25 PM The status of this report is Signed. Draft = Not yet reviewed or approved by Radiologist. Signed = Reviewed and approved by Radiologist. KUB HISTORY: Acute abdominal distention Abdominal Distention/Pain COMPARISON: PET CT 05/21/2017 FINDINGS: There is moderate gaseous distention of the large bowel with moderate stool volume within the right hemicolon. There is relative paucity of small bowel gas without evidence of small bowel obstruction. Skin jasper are noted overlying the abdominal right upper quadrant. Linear lucency adjacent to the lesser curvature of the stomach is noted. No pneumatosis. No urolith. Fluid with of the pelvis. No fracture. Port catheter projects over the right atrium. IMPRESSION: 1. Surgical skin jasper of the right upper abdomen with linear lucency adjacent to the lesser curvature of the stomach, possibly reflecting pneumoperitoneum in the setting of recent surgery. 2. Mild colonic distention suggests colonic ileus without evidence of small bowel obstruction. Electronically signed by: Jesse Smith M.D. 05/23/2017 7:13 PM Dictated Date/Time: 05/23/2017 7:09 PM The status of this report is Signed. Draft = Not yet reviewed or approved by Radiologist. Signed = Reviewed and approved by Radiologist. GALLBLADDER-ABD LIMITED CLINICAL HISTORY: 51 years-old Male presenting with elevated lft. TECHNIQUE: Real-time grayscale and limited color Doppler ultrasound imaging of the abdomen limited to the right upper quadrant was performed. COMPARISON: CT from 04/26/2017. FINDINGS: Pancreas: Largely obscured due to overlying bowel gas and the presence of a bandage. Liver: Subtle hypoechogenicity with normal echotexture. The liver measures 16.5 cm in maximal sagittal dimension. No sonographic evidence of hepatic mass. Main portal vein patent with normal directional flow. Biliary: No intrahepatic biliary ductal dilatation. Common bile duct measures up to 5 mm in diameter. Gallbladder: Gallbladder sludge. No evidence of gallstones, gallbladder wall thickening, gallbladder distention, or pericholecystic fluid or inflammatory change. Right kidney: The echogenicity of the right kidney is greater than that of the adjacent liver parenchyma. No hydronephrosis. Ascites: None. Other: None. IMPRESSION: 1. Gallbladder sludge. No cholelithiasis, biliary ductal dilatation, or cholecystitis. Evaluation was limited due to inability to performed decubitus imaging and poor breath-holding. 2. Hypoechogenic liver parenchyma could be seen in the setting of hepatitis. Electronically signed by: Bay Hand M.D. 05/24/2017 8:03 AM Dictated Date/Time: 05/24/2017 7:59 AM The status of this report is Signed. Draft = Not yet reviewed or approved by Radiologist. Signed = Reviewed and approved by Radiologist. (CHEST FOR PE) ANGIO WITH CT DOSE: 290.31 mGy.cm HISTORY: 51 years-old Male presents with acute shortness of breath and tachycardia TECHNIQUE: Multiple CTA images of the chest were obtained after the intravenous administration of 102 ml Optiray 320. Coronal and sagittal MIPS were obtained from the axial data set and were submitted for review. A dose lowering technique was utilized adhering to the principles of ALARA. COMPARISON: Chest radiograph 05/22/2017, PET CT 05/21/2017, CT chest 05/01/2017. FINDINGS: CTA: Mild multichamber cardiac enlargement. Coronary arterial disease. Thoracic aorta is normal in course and caliber without aneurysm or dissection. Mild mixed plaquing of the thoracic aorta and proximal great vessels appear patent. The pulmonary arterial tree demonstrates minimal air within the main segment, likely secondary to IV catheter. Study is moderately motion degraded which limits evaluation of the distal lobar, segmental and subsegmental branches of the pulmonary arterial tree. No definite filling defects identified to suggest pulmonary thromboembolic disease. CT CHEST: No dominant thyroid nodule. Left supraclavicular lymph node measures up to 1.4 x 2.8 cm. Pathologic mediastinal, distal periesophageal and upper abdominal adenopathy redemonstrated which has not significantly changed from comparison PET CT 05/21/2017. Subcarinal lymph nodes measure up to 1.4 cm in short axis. There is esophageal lymph nodes measure up to 1.1 cm in short axis. Retrocrural lymph nodes on the right measure up to 1.3 cm in short axis. No large pleural effusion or pneumothorax. Subsegmental dependent consolidative opacities suggest atelectasis. There is mild bilateral bronchial wall thickening. Indeterminate pleural-based 4 mm nodule of the apical posterior segment left upper lobe. Central airways appear patent. Mild pneumoperitoneum noted adjacent to the liver. Minimal deep tissue air is seen. As I 4 process, both of these findings are likely postsurgical. Deep tissue air is noted about a left pectoral [id number] catheter with distal tip in the SVC. The bones appear intact without suspicious lytic or blastic bony lesions identified. IMPRESSION: 1. Motion degraded exam with limited evaluation of the pulmonary arterial tree as above. No central embolus or acute aortic pathology identified. 2. Dependent subsegmental bibasilar consolidation suggests atelectasis. 3. Pathologically enlarged left supraclavicular, mediastinal, retrocrural, periesophageal and upper abdominal adenopathy redemonstrated, further characterized on comparison PET CT 05/21/2017 suspicious for lymphoproliferative disorder. 4. Minimal pneumoperitoneum is likely postsurgical. Postsurgical deep tissue air is also noted about the left pectoral [id number] catheter. 5. Mild cardiomegaly. The above report was generated using voice recognition software. It may contain grammatical, syntax or spelling errors. Electronically signed by: Jesse Smith M.D. 05/24/2017 3:39 PM Dictated Date/Time: 05/24/2017 3:29 PM The status of this report is Signed. Draft = Not yet reviewed or approved by Radiologist. Signed = Reviewed and approved by Radiologist. CHEST ONE VIEW PORTABLE CLINICAL HISTORY: fever, eval for pneumonia; eval for any developing CHF dyspnea COMPARISON STUDY: 05/22/2017 mild stable cardiomegaly. FINDINGS: Central catheter remains in the right atrium. No evidence pneumothorax. Potential minimal parenchymal infiltrate right base. Diaphragms smooth. Contrast costophrenic angles are sharp. IMPRESSION: Potential minimal parenchymal infiltrate right base. The above report was generated using voice recognition software. It may contain grammatical, syntax or spelling errors. Electronically signed by: Crhis Gross M.D. 05/26/2017 5:30 PM Dictated Date/Time: 05/26/2017 5:29 PM The status of this report is Signed. Draft = Not yet reviewed or approved by Radiologist. Signed = Reviewed and approved by Radiologist. CC: Miles Bradshaw M.D. Endcc: DICTATED BY: Miles Bradshaw M.D. DATE OF OPERATION: 05/22/2017 SURGEON: Miles Bradshaw MD. DRIVER TRAINEE: Adam Cortes PA-C. PREOPERATIVE DIAGNOSES: Retroperitoneal mass suspicious for lymphoma, likely need for chemotherapy, lesion in the left flank approximately 2 cm, questionable metastatic lymphoma to the skin. PROCEDURE: Laparoscopy, open biopsy of retroperitoneal mass with frozen sections, A-port placement in left internal jugular, excision of left flank mass. Consultations: General surgery- Dr. Bradshaw Hematology/oncology- Dr. Isabel GI- Dr. Harvey Medication Reconciliation Continued Medications: Aspirin (Aspirin Dr) 81 Mg Tab 81 MG PO QAM WILL FOLLOW SURGEON INSTRUCTION Clopidogrel Bisulfate (Plavix) 75 Mg Tab 75 MG PO QAM, TAB WILL FOLLOW INSTRUCTIONS FROM SURGEON Gabapentin (Neurontin) 100 Mg Cap 300 MG PO TID, CAP Glyburide (Glyburide) 1.25 Mg Tab 1.25 MG PO QAM TAKE THIS MEDICATION WITH BREAKFAST. Metformin Hcl (Glucophage) 500 Mg Tab 500 MG PO TIDM, TAB Multiple Vitamins W/ Minerals (Airborne) 1 Tab Tab 1 TAB PO QAM Oxycodone Ir (Roxicodone Ir) 5 Mg Tab 10 MG PO Q4H PRN for Severe Pain, #20 TAB (This prescription has been renewed) Pantoprazole Sodium (Protonix) 40 Mg Tab 40 MG PO QAM, TAB Phenytoin Sodium (Dilantin) 100 Mg Cap 300 MG PO QPM for 30 Days, CAP 2 Refills Sertraline Hcl (Zoloft) 50 Mg Tab 50 MG PO HS, TAB Tamsulosin HCl (Tamsulosin HCl) 0.4 Mg Cap 0.4 MG PO HS [Magnesium] () 500 MG PO QPM [Timolol 0.25%] () 1 DROP OPR QAM Referrals At Discharge Follow up Referrals: Family Practice Referral - Within 1 Week with Juancarlos Dukes M.D. Oncology/Hematology Referral - Within 1 Week with Higinio Isabel D.O. Surgery Referral - Within 1 Week with Miles Bradshaw M.D. Discharge Exam Review of Systems: Constitutional: No fever, No chills, No sweats, No weakness, No fatigue Eyes: No worsening of vision ENT: No hearing loss, No sore throat, No trouble swallowing Respiratory: No cough, No shortness of breath, No hemoptysis Cardiovascular: No chest pain, No edema, No palpitations Abdomen: + pain (around incision sites ), No nausea, No vomiting, No diarrhea, No constipation Musculoskeletal: No joint pain, No muscle pain, No calf pain Genitourinary - Male: No hematuria, No dysuria Neurologic: No memory loss, No numbness/tingling Psychiatric: No depression symptoms Hematologic / Lymphatic: No abnormal bleeding/bruising Integumentary: No rash, No itch, No new/changing skin lesions Physical Exam: General Appearance: no apparent distress Eyes: normal inspection, PERRL ENT: hearing grossly normal Neck: supple Respiratory/Chest: lungs clear, no respiratory distress, no accessory muscle use Cardiovascular: + tachycardia (regular rhythm ) Abdomen / GI: normal bowel sounds, non tender, soft, + pertinent finding ( incision sites C/D/I ) Extremities: no calf tenderness, no pedal edema Neurologic/Psychiatric: alert, oriented x 3, + pertinent finding (flat affect ) Skin: normal color, warm/dry, no rash Hospital Course Mr. Evans is a 51 y/o male with PMHx of T2DM with Peripheral Neuropathy and CVA with L residual deficits who is s/p Open Retroperitoneal Mass Bx, Excisional Bx of Soft Tissue of L Lumbar Mass, and A Port in L Jugular. Hospitalist consulted for tachycardia and weakness. Newly diagnosed Hodgkin's lymphoma: - s/p retroperitoneal biopsy on 05/[address] Bradshaw- biopsy w/ Hodgkin lymphoma - s/p bone biopsy on 05/[address] Isabel- pathology w/out lymphoma - ECHO obtained in preparation for chemotherapy - Hematology/oncology consulted- f/u outpatient to begin chemotherapy Sinus tachycardia, likely secondary to pain vs dehydration vs lymphoma- STABLE: - EKG reviewed that shows sinus tachy with/out ischemic changes or other worrisome changes - Continue Oxycodone PRN for pain management - CTA negative for PE - ECHO- preserved EF, grade I diastolic dysfunction - Fevers- RESOLVED- no s/s of infection- procalcitonin WNL, UCx negative x2, BCx negative, repeat BCx pending Hyponatremia, likely due to dehydration- STABLE: Treated w/ IVF Hypokalemia: Replaced w/ 20 mEq KCL supplement Volume overload secondary to IVF and low albumin: Treated w/ Lasix PRN Elevated LFTs, ?secondary to lymphoma- IMPROVING: - Hepatitis negative; SHWETA negative - Liver US- unremarkable - GI consulted, appreciate recommendations- likely secondary to lymphoma process - continue to monitor outpatient Vitamin K deficiency w/ coagulopathy- RESOLVED: Treated w/ IV Vitamin K Severe hypoalbuminemia due to severe protein calorie malnutrition: Boost BID Anemia, likely acute phase reactant: - Serum iron low, ferritin high - Follow H&H- STABLE Urinary retention w/ BPH- RESOLVED: Continue Flomax 0.4 mg HS T2DM w/ peripheral neuropathy- hgbA1c 6.6% in 04/2017: - Outpatient regimen of Metformin and Glyburide held- resume at discharge - Lantus 10 u HS - BSG ACHS and ISS - Continue Gabapentin 300 mg TID CVA with L residual deficits, h/o seizure: - ASA 81 mg daily, Plavix 75 mg daily - Continue Dilantin 300 mg daily and Zoloft 50 mg HS GERD: Protonix daily DVT prophylaxis: Heparin SQ BID Code status: LEVEL I, FULL Dispo: Discharge to home Total Time Spent: Greater than 30 minutes This includes examination of the patient, discharge planning, medication reconciliation, and communication with other providers. Discharge Instructions Please refer to the electronic Patient Visit Report (Discharge Instructions) for additional information. Follow-Up Please follow-up with your PCP within 5-7 days Please follow-up with Dr. Isabel within 1 week Follow-up with Dr. Bradshaw as instructed Please follow-up/keep all of your subspecialty appointments Additional Copies To Juancarlos Dukes M.D. Reviewed: Pt Seen/Exam by Me History Physician Slasher Sawyer Supervision Note: I interviewed and examined the patient. Discussed with NATASHA Cordero and agree with findings and plan as documented in the note. Any exceptions or clarifications are listed here: DOing well, pain controlled, chelita po, no complaints. Remains with intermittent low grade fevers, but no growth on any cultures, no source, likely secondary to lymphoma. Vitals reviewed Very flat affect, NAD, alert awake and oriented Regular rhythm with mild tachycardia, no MGR Lungs clear to auscultation bilaterally Abdomen +bowel sounds, soft but mildly distended, positive minimal TTP around incision sites without guarding or rebound tenderness, jasper intact, no surrounding erythema or drainage from wounds; left anterior chest wall with A- port in place, steri strips in place, no erythema, no drainage, no tenderness Extremities no edema Patient is a 51-year-old male with a history of seizure disorder, DM 2, diabetic peripheral neuropathy, history of CVA with left-sided residual deficits , here with diffuse bulky lymphadenopathy now status post open retroperitoneal mass biopsy and excisional biopsy of soft tissue left lumbar mass as well as a- port placement. Hospitalist service consulted for persistent tachycardia and weakness. Also with hyponatremia Found to have Hodgkin's lymphoma on biopsies, bone marrow negative. Fevers likely secondary to lymphoma, atelectasis. LFTs trending downward, no evidence of infection. Stable for discharge to home with close Oncology follow up Documented By: Theresa Swain
[2017-05-31 16:00] VITALS: O2SAT 96
[2017-05-31 17:09] VITALS: BP 127/76; PULSE 103; TEMP 37.9; O2SAT 96
== END 2017-05-31 18:00 | disposition home health service (06) | DRG 823 ==
LOC: C.ACU 07:50 → C.MSW 08:00 → EDBEDREQSVC 13:58 → ENRESERV 14:02 → OBSVTOIN 05-25 10:32
PROVIDERS: ADMIT Surgery; ATTEND Family Medicine
PROC: 0JB80ZX Excision of Abdomen Subcutaneous Tissue and Fascia, Open Approach, Diagnostic (ICD-10-PCS; principal; 2017-05-23)
PROC: 0WBH0ZX Excision of Retroperitoneum, Open Approach, Diagnostic (ICD-10-PCS; principal; 2017-05-23)
PROC: 0JB70ZX Excision of Back Subcutaneous Tissue and Fascia, Open Approach, Diagnostic (ICD-10-PCS; principal; 2017-05-23)
PROC: 05HN03Z Insertion of Infusion Device into Left Internal Jugular Vein, Open Approach (ICD-10-PCS; principal; 2017-05-23)
DX: C81.90 Hodgkin lymphoma, unspecified, unspecified site (principal); E43 Unspecified severe protein-calorie malnutrition; E87.1 Hypo-osmolality and hyponatremia; G81.94 Hemiplegia, unspecified affecting left nondominant side; D62 Acute posthemorrhagic anemia; E11.40 Type 2 diabetes mellitus with diabetic neuropathy, unspecified; G62.9 Polyneuropathy, unspecified; N40.1 Benign prostatic hyperplasia with lower urinary tract symptoms; G40.909 Epilepsy, unspecified, not intractable, without status epilepticus; E78.00 Pure hypercholesterolemia, unspecified; H40.9 Unspecified glaucoma; F32.9 Major depressive disorder, single episode, unspecified; R50.82 Postprocedural fever; R74.0 Nonspecific elevation of levels of transaminase and lactic acid dehydrogenase [LDH]; E88.09 Other disorders of plasma-protein metabolism, not elsewhere classified; E56.1 Deficiency of vitamin K; Z79.82 Long term (current) use of aspirin; Z86.73 Personal history of transient ischemic attack (TIA), and cerebral infarction without residual deficits; Z87.891 Personal history of nicotine dependence; Z80.1 Family history of malignant neoplasm of trachea, bronchus and lung; Z83.3 Family history of diabetes mellitus

== ENCOUNTER → 2017-06-07 | Outpatient (CLI) | payer BC ==
[~2017-06-07] MED LIST changes: -LACTATED RINGER'S 1000ML 1,000 ML IV SCH; +NUTR-7 PO; -TRAM-10 PO
--- NOTE | 2017-06-13 10:06 | PULMONARY FUNCTION TEST ---
Spirometry shows a severe reduction in forced vital capacity and FEV1. There is a normal FEV1/FVC ratio. These results would be compatible with severe restriction. Review of the flow volume loops would suggest the patient did not optimally perform the study. Clinical correlation is advised. Repeat study done following bronchodilator showed no change in function. Lung volumes showed a decreased FRC and TLC. These would be compatible with restriction.
== END | disposition home or self-care (01) ==
LOC: C.RC 09:04
PROVIDERS: ATTEND Internal Medicine Hematology & Oncology
DX: C81.78 Other Hodgkin lymphoma, lymph nodes of multiple sites (principal)

== ENCOUNTER → 2017-09-19 | Outpatient (CLI) | payer BC ==
[~2017-09-19] MED LIST changes: +OXYC-90 PO; -OXYC1TAB3 PO
[2017-09-19 10:11] LABS: BASO % 0.3 %; BASO ABS # 0.01 K/uL (0-0.2); EOS ABS # 0.08 K/uL (0-0.5); HEMATOCRIT 41.1 % (42-52); HEMOGLOBIN 13.8 g/dL (14.0-18.0); LYMPH % 23.5 %; LYMPH ABS # 0.93 K/uL (1.2-3.4); MEAN CELL VOLUME 90.1 fL (80-100); MEAN CORPUSCULAR HEMOGLOBIN 30.3 pg (25-34); MEAN CORPUSCULAR HGB CONC 33.6 g/dl (32-36); MEAN PLATELET VOLUME 10.3 fL (7.4-10.4); MONO % 12.4 %; MONO ABS # 0.49 K/uL (0.11-0.59); NEUT % 61.8 %; NEUT ABS # 2.44 K/uL (1.4-6.5); PLATELET COUNT 198 K/uL (130-400); RED CELL DISTRIBUTION WIDTH CV 15.1 % (11.5-14.5); RED CELL DISTRIBUTION WIDTH SD 48.9 fL (36.4-46.3); WHITE BLOOD COUNT 3.95 K/uL (4.8-10.8)
[2017-09-19 10:30] LABS: ALBUMIN 3.7 gm/dl (3.4-5.0); ALKALINE PHOSPHATASE 123 U/L (45-117); ALT/SGPT 26 U/L (12-78); AST/SGOT 13 U/L (15-37); BLOOD UREA NITROGEN 10 mg/dl (7-18); CALCIUM 8.9 mg/dl (8.5-10.1); CARBON DIOXIDE 28 mmol/L (21-32); CREATININE 0.46 mg/dl (0.60-1.40); GLUCOSE 172 mg/dl (70-99); SODIUM 140 mmol/L (136-145); TOTAL PROTEIN 6.7 gm/dl (6.4-8.2)
== END | disposition home or self-care (01) ==
LOC: C.LABSPEC 09:43
PROVIDERS: ATTEND Internal Medicine Hematology & Oncology
DX: C81.78 Other Hodgkin lymphoma, lymph nodes of multiple sites (principal)

== ENCOUNTER → 2017-10-03 | Outpatient (CLI) | payer BC ==
[2017-10-03 10:38] LABS: BASO % 0.1 %; BASO ABS # 0.01 K/uL (0-0.2); EOS % 0.5 %; EOS ABS # 0.05 K/uL (0-0.5); HEMATOCRIT 42.4 % (42-52); HEMOGLOBIN 14.3 g/dL (14.0-18.0); IG# 0.05 K/uL (0.00-0.02); LYMPH % 11.6 %; LYMPH ABS # 1.27 K/uL (1.2-3.4); MEAN CORPUSCULAR HEMOGLOBIN 30.4 pg (25-34); MEAN CORPUSCULAR HGB CONC 33.7 g/dl (32-36); MONO % 5.1 %; MONO ABS # 0.56 K/uL (0.11-0.59); NEUT % 82.2 %; NEUT ABS # 8.97 K/uL (1.4-6.5); PLATELET COUNT 159 K/uL (130-400); RED CELL DISTRIBUTION WIDTH CV 14.6 % (11.5-14.5); RED CELL DISTRIBUTION WIDTH SD 47.6 fL (36.4-46.3); WHITE BLOOD COUNT 10.91 K/uL (4.8-10.8)
[2017-10-03 11:00] LABS: ALBUMIN 3.8 gm/dl (3.4-5.0); ALT/SGPT 30 U/L (12-78); AST/SGOT 15 U/L (15-37); BLOOD UREA NITROGEN 16 mg/dl (7-18); CALCIUM 8.7 mg/dl (8.5-10.1); CARBON DIOXIDE 26 mmol/L (21-32); CREATININE 0.59 mg/dl (0.60-1.40); GLUCOSE 177 mg/dl (70-99); POTASSIUM 3.9 mmol/L (3.5-5.1); SODIUM 137 mmol/L (136-145)
[2017-10-03 11:01] LABS: ALKALINE PHOSPHATASE 150 U/L (45-117)
== END | disposition home or self-care (01) ==
LOC: C.LABSPEC 10:19
PROVIDERS: ATTEND Internal Medicine Hematology & Oncology
DX: C81.78 Other Hodgkin lymphoma, lymph nodes of multiple sites (principal)

== ENCOUNTER → 2017-10-17 | Outpatient (CLI) | payer BC ==
[2017-10-17 11:12] LABS: BASO % 0.3 %; BASO ABS # 0.04 K/uL (0-0.2); EOS % 0.6 %; EOS ABS # 0.09 K/uL (0-0.5); HEMATOCRIT 42.5 % (42-52); HEMOGLOBIN 14.4 g/dL (14.0-18.0); IG# 0.76 K/uL (0.00-0.02); LYMPH % 8.4 %; LYMPH ABS # 1.33 K/uL (1.2-3.4); MEAN CELL VOLUME 91.2 fL (80-100); MEAN CORPUSCULAR HEMOGLOBIN 30.9 pg (25-34); MEAN CORPUSCULAR HGB CONC 33.9 g/dl (32-36); MEAN PLATELET VOLUME 11.1 fL (7.4-10.4); MONO % 5.4 %; MONO ABS # 0.86 K/uL (0.11-0.59); NEUT % 80.5 %; NEUT ABS # 12.79 K/uL (1.4-6.5); PLATELET COUNT 197 K/uL (130-400); RED CELL DISTRIBUTION WIDTH CV 14.9 % (11.5-14.5); RED CELL DISTRIBUTION WIDTH SD 49.3 fL (36.4-46.3); WHITE BLOOD COUNT 15.87 K/uL (4.8-10.8)
[2017-10-17 11:28] LABS: ALBUMIN 3.7 gm/dl (3.4-5.0); ALT/SGPT 27 U/L (12-78); AST/SGOT 13 U/L (15-37); BLOOD UREA NITROGEN 10 mg/dl (7-18); CALCIUM 8.7 mg/dl (8.5-10.1); CARBON DIOXIDE 27 mmol/L (21-32); GLUCOSE 197 mg/dl (70-99); SODIUM 138 mmol/L (136-145)
[2017-10-17 11:30] LABS: ALKALINE PHOSPHATASE 164 U/L (45-117); TOTAL PROTEIN 6.9 gm/dl (6.4-8.2)
== END | disposition home or self-care (01) ==
LOC: C.LABSPEC 09:56
PROVIDERS: ATTEND Internal Medicine Hematology & Oncology
DX: C81.78 Other Hodgkin lymphoma, lymph nodes of multiple sites (principal)